=== PATIENT | female | born 1945 | race Caucasian/White ===

== ENCOUNTER 2017-05-09 11:06 | Day surgery (SDC) | payer MEDICARE, OTHER ==
[~2017-05-09 11:06] MED LIST: ACETAZOLAMIDE 250 MG TABLET PO ONE; Ak-Dilate OPHTHALMIC*** 0.71 ML, Cyclogyl 1% OPHTH SOL 5 ML 0.71 ML, GATIFLOXACIN 0.5% ... OP ONE; Lactated Ringers 1,000 ML IV ONE; Lactated Ringers 1,000 ML IV SCH; TETRACAINE 0.5% STERI-UNIT SOL OP ONE; Zofran 4 MG/2 ML VIAL IV PRN
[2017-05-09] MEDS ORDERED: DIPRIVAN 200 MG/20 ML IV ONE (11:07)
[2017-05-09] MEDS ORDERED: LIDOCAINE HCL 1% AMPUL 5 ML IJ ONE (12:30)
[2017-05-09] MEDS ORDERED: BETADINE 5% OPHTHALMIC 30 ML OP ONE (12:30)
[2017-05-09] MEDS ORDERED: Epinephrine Preservative Free 1 MG/ML INTRAOP ONE (12:30)
[2017-05-09 13:16] VITALS: BP 157/84; PULSE 65; O2SAT 95
--- NOTE | 2017-05-10 08:07 | OP ---
DATE/TIME OF OPERATION: 05/09/2017 1203 TIME DICTATED: 1522 PREOPERATIVE DIAGNOSIS: Senile cataract of left eye. POSTOPERATIVE DIAGNOSIS: Senile cataract of left eye. SURGEON: Ti Wood MD QUALITY ASSURANCE SUPERVISOR FINAL: None. OPERATION: Cataract extraction of left eye with an intraocular lens implant. STANDARD __X___ COMPLEX ANESTHESIA: MAC. ___X___ Monitored anesthesia care in combination with topical and intra-cameral anesthesia (because of the established specific risk of reflux, arrhythmias, or an anxiety attack associated with ocular manipulation as well as difficulty of the pressure supervisor to manage such potentially catastrophic events while simultaneously attempting to complete the surgical procedure, it was deemed necessary for the patient's safety to have an anesthesiologist or a nurse life skills worker present during the procedure whenever possible. The anesthesiologist or the nurse life skills worker was utilized to monitor and regulate the intravenous sedation of the patient, so the patient was cooperative, relaxed, and comfortable). Topical anesthesia using Tetracaine eye drops together with intra cameral anesthesia using Lidocaine 1% MPF. The nurse was utilized to monitor the patient. ANESTHESIA PROVIDER: Josh Loaiza CRNA. COMPLICATIONS: None. BLOOD LOSS: None. INDICATIONS: The patient is undergoing cataract surgery in the hopes of eliminating the visual complaints and difficulty. PROCEDURE: After arriving at the facility's outpatient surgery area, an IV was started; the patient was given 5 mg of p.o. Versed. (If an anesthesia provider was not monitoring the patient) The patient was then given topical anesthetic Tetracaine eye drops. A cotton pellet was soaked into a solution of a combination of Zymaxid 0.5%, Torey-Synephrine 2.5% and Ocufen (other drops might have been substituted referenced in the patient's record). The pellet was inserted by the RN into the lower conjunctival cul-de-sac with a sterile forceps and left for 20 minutes. The pellet was then removed by the RN with a sterile forceps before taking the patient to the operating room. The preoperative area nurse identified the patient and marked the correct eye to be operated on. I identified the correct eye to be operated on and marked it appropriately in the outpatient surgery area. The patient was then taken into the operating room. Tetracaine eye drops were installed again in the correct eye. The eyelids and the lashes and the lid margins were scrubbed with Betadine solution. One drop of the diluted Betadine solution was placed in the conjunctival cul-de-sac for 45 seconds and then was irrigated. A drop of Tetracaine Gel was placed in the conjunctival cul-de-sac. The patient's forehead was taped to secure it during the procedure. The patient was monitored. The patient was then draped in the usual way for this procedure. An eye speculum was used to separate the eyelids. The eye was then fixated and a temporal 2.5 mm incision was made in the clear cornea temporally at the limbus. Through the incision, 0.25 cc of 1% non-preserved lidocaine was injected into the anterior chamber for intracameral anesthesia. The anterior chamber was then filled with viscoelastic. The pupil was small. I felt that it would be safer to mechanically dilate the pupil. A Malyugin ring was used at this point which dilated the pupil. That was removed at the end of the procedure prior to aspiration of the viscoelastic from the anterior chamber and posterior to the intraocular lens implant. The cataract had a great amount of cortical changes. That rendered seeing the anterior capsule difficult for a safe performance of an anterior capsulotomy. I injected an air bubble into the anterior chamber. I then injected 1 ML of vision blue solution into the anterior chamber. The vision blue solution was irrigated from the anterior chamber after 30 seconds. The anterior capsule was stained which facilitated performing the anterior capsulotomy safely. After that was completed, a cystotome was introduced into the anterior chamber and a round anterior capsulotomy was performed. The capsule was removed by a forceps. Hydrodissection was next carried utilizing a 25-gauge cannula and balanced salt solution to delineate the cortical material from the capsule and the nucleus from the cortical material. The nucleus was rotated freely into the capsular bag with no difficulty. The phaco tip of the [employer] Phacoemulsifier was introduced into the anterior chamber and two grooves were made into the nucleus 90 degrees apart. Using two spatulas resulted into the nucleus being fractured into four quadrants. The phaco tip was then used to remove each quadrant of the nucleus. Viscoelastic was used during this process to protect the corneal endothelium. Once the entire nucleus was removed, the phaco tip then was removed and the irrigation tip was introduced into the eye and the cortex was removed. The posterior capsule was polished. It was noticed that there was a tear into the posterior capsule with few vitreous strands into the pupil plan. An anterior vitrectomy was performed. A 25.50 diopter, [id number], posterior chamber lens implant, was inspected and found to be grossly normal. The implant was inserted into the implant injector cartridge; Viscoelastic again was introduced into the anterior chamber, which filled the capsular bag. The implant injector's cartridge tip was placed at the limbal wound and the posterior chamber implant was released into the capsular bag and rotated appropriately. The implant was found to be into the capsular bag and it was centered. __X___ 0.2 ml of Tri-Moxi was introduced via 27 gauge cannula into the vitreous cavity through the ciliary processes. Viscoelastic was aspirated from the anterior chamber and posterior to the intraocular lens implant from the capsular bag using the irrigating tip. The anterior chamber was irrigated and filled with 5 cc antibiotic solution (500 cc of BSS plus 2 ml of Fortaz 100 mg/ml) ( if patient was not allergic to the medication). The lips of the corneal incision were hydrated using BSS solution. The anterior chamber was checked and found to be water tight. One drop each of antibiotic, steroid and NSAID drops (refer to chart for drops used) were placed in the conjunctival cul-de-sac of the operated eye. Patient tolerated the procedure quite well and left the operating room in satisfactory condition. DISCHARGE SUMMARY: The patient was released in stable condition. The patient and those with the patient were given an instruction sheet as of how to care for the eye after surgery as well as counseling on any abnormal laboratory studies by the postoperative RN. The patient was also given an appointment card for follow-up in the office and is to call immediately for any difficulties including but not limited to pain in the eye, decreased vision, discharge from the eye, headache and or fever. DISCHARGE DIAGNOSIS: Pseudophakia of left eye.
== END 2017-05-09 13:27 | disposition home or self-care (01) ==
LOC: SDC 11:06
PROVIDERS: ATTEND Ophthalmology
PROC: 08RK3JZ Replacement of Left Lens with Synthetic Substitute, Percutaneous Approach (ICD-10-PCS; principal; 2017-05-09)
DX: H25.9 Unspecified age-related cataract (principal)
CPT/HCPCS: 66984; C1780; 00142; 99100; J0171; J2704; A9270-GY

== ENCOUNTER 2017-06-06 08:51 | Day surgery (SDC) | payer MEDICARE, OTHER ==
[2017-06-06] MEDS ORDERED: DIPRIVAN 200 MG/20 ML IV ONE (08:52)
[2017-06-06] MEDS ORDERED: Versed 2 MG/2 ML Injection IV ONE (08:52)
[2017-06-06] MEDS ORDERED: Lactated Ringers 1,000 ML IV ONE (09:51)
[2017-06-06] MEDS ORDERED: Epinephrine Preservative Free 1 MG/ML INTRAOP ONE (10:00)
[2017-06-06] MEDS ORDERED: LIDOCAINE HCL 1% AMPUL 5 ML IJ ONE (10:00)
[2017-06-06] MEDS ORDERED: BETADINE 5% OPHTHALMIC 30 ML OP ONE (10:00)
[2017-06-06] MEDS ORDERED: Lactated Ringers 1,000 ML IV SCH (11:00)
[2017-06-06] MEDS ORDERED: Ak-Dilate OPHTHALMIC*** 0.71 ML, Cyclogyl 1% OPHTH SOL 5 ML 0.71 ML, GATIFLOXACIN 0.5% ... OP ONE ×4 (11:00)
[2017-06-06] MEDS ORDERED: TETRACAINE 0.5% STERI-UNIT SOL OP ONE ×2 (11:00)
[2017-06-06] MEDS ORDERED: ACETAZOLAMIDE 250 MG TABLET PO ONE (12:00)
[2017-06-06] MEDS ORDERED: Zofran 4 MG/2 ML VIAL IV PRN (12:00)
--- NOTE | 2017-06-06 12:01 | OP ---
DATE/TIME OF OPERATION: 06/06/2017 1111 TIME DICTATED: 1151 PREOPERATIVE DIAGNOSIS: Senile cataract of right eye. POSTOPERATIVE DIAGNOSIS: Senile cataract of right eye. SURGEON: Ti Wood MD TIME STUDY ENGINEER: None. OPERATION: Cataract extraction of right eye with an intraocular lens implant. STANDARD __X___ COMPLEX ANESTHESIA: MAC. ___X___ Monitored anesthesia care in combination with topical and intra-cameral anesthesia (because of the established specific risk of reflux, arrhythmias, or an anxiety attack associated with ocular manipulation as well as difficulty of the planer setup operator to manage such potentially catastrophic events while simultaneously attempting to complete the surgical procedure, it was deemed necessary for the patient's safety to have an anesthesiologist or a nurse utility supervisor boat and plant present during the procedure whenever possible. The anesthesiologist or the nurse utility supervisor boat and plant was utilized to monitor and regulate the intravenous sedation of the patient, so the patient was cooperative, relaxed, and comfortable). Topical anesthesia using Tetracaine eye drops together with intra cameral anesthesia using Lidocaine 1% MPF. The nurse was utilized to monitor the patient. ANESTHESIA PROVIDER: Josh Loaiza CRNA. COMPLICATIONS: None. BLOOD LOSS: None. INDICATIONS: The patient is undergoing cataract surgery in the hopes of eliminating the visual complaints and difficulty. PROCEDURE: After arriving at the facility's outpatient surgery area, an IV was started; the patient was given 5 mg of p.o. Versed. (If an anesthesia provider was not monitoring the patient) The patient was then given topical anesthetic Tetracaine eye drops. A cotton pellet was soaked into a solution of a combination of Zymaxid 0.5%, Torey-Synephrine 2.5% and Ocufen (other drops might have been substituted referenced in the patient's record). The pellet was inserted by the RN into the lower conjunctival cul-de-sac with a sterile forceps and left for 20 minutes. The pellet was then removed by the RN with a sterile forceps before taking the patient to the operating room. The preoperative area nurse identified the patient and marked the correct eye to be operated on. I identified the correct eye to be operated on and marked it appropriately in the outpatient surgery area. The patient was then taken into the operating room. Tetracaine eye drops were installed again in the correct eye. The eyelids and the lashes and the lid margins were scrubbed with Betadine solution. One drop of the diluted Betadine solution was placed in the conjunctival cul-de-sac for 45 seconds and then was irrigated. A drop of Tetracaine Gel was placed in the conjunctival cul-de-sac. The patient's forehead was taped to secure it during the procedure. The patient was monitored. The patient was then draped in the usual way for this procedure. An eye speculum was used to separate the eyelids. The eye was then fixated and a temporal 2.5 mm incision was made in the clear cornea temporally at the limbus. Through the incision, 0.25 cc of 1% non-preserved lidocaine was injected into the anterior chamber for intracameral anesthesia. The anterior chamber was then filled with viscoelastic. The pupil was small. I felt that it would be safer to mechanically dilate the pupil. A Malyugin ring was used at this point which dilated the pupil. That was removed at the end of the procedure prior to aspiration of the viscoelastic from the anterior chamber and posterior to the intraocular lens implant. The cataract had a great amount of cortical changes. That rendered seeing the anterior capsule difficult for a safe performance of an anterior capsulotomy. I injected an air bubble into the anterior chamber. I then injected 1 ML of vision blue solution into the anterior chamber. The vision blue solution was irrigated from the anterior chamber after 30 seconds. The anterior capsule was stained which facilitated performing the anterior capsulotomy safely. After that was completed, a cystotome was introduced into the anterior chamber and a round anterior capsulotomy was performed. The capsule was removed by a forceps. Hydrodissection was next carried utilizing a 25-gauge cannula and balanced salt solution to delineate the cortical material from the capsule and the nucleus from the cortical material. The nucleus was rotated freely into the capsular bag with no difficulty. The phaco tip of the [employer] Phacoemulsifier was introduced into the anterior chamber and two grooves were made into the nucleus 90 degrees apart. Using two spatulas resulted into the nucleus being fractured into four quadrants. The phaco tip was then used to remove each quadrant of the nucleus. Viscoelastic was used during this process to protect the corneal endothelium. Once the entire nucleus was removed, the phaco tip then was removed and the irrigation tip was introduced into the eye and the cortex was removed. The posterior capsule was polished. It was noticed that there was a tear into the posterior capsule with few vitreous strands into the pupil plan. An anterior vitrectomy was performed. A 25.50 diopter, [id number], posterior chamber lens implant, was inspected and found to be grossly normal. The implant was inserted into the implant injector cartridge; Viscoelastic again was introduced into the anterior chamber, which filled the capsular bag. The implant injector's cartridge tip was placed at the limbal wound and the posterior chamber implant was released into the capsular bag and rotated appropriately. The implant was found to be into the capsular bag and it was centered. __X___ 0.2 ml of Tri-Moxi was introduced via 27 gauge cannula into the vitreous cavity through the ciliary processes. Viscoelastic was aspirated from the anterior chamber and posterior to the intraocular lens implant from the capsular bag using the irrigating tip. The anterior chamber was irrigated and filled with 5 cc antibiotic solution (500 cc of BSS plus 2 ml of Fortaz 100 mg/ml) ( if patient was not allergic to the medication). The lips of the corneal incision were hydrated using BSS solution. The anterior chamber was checked and found to be water tight. One drop each of antibiotic, steroid and NSAID drops (refer to chart for drops used) were placed in the conjunctival cul-de-sac of the operated eye. Patient tolerated the procedure quite well and left the operating room in satisfactory condition. DISCHARGE SUMMARY: The patient was released in stable condition. The patient and those with the patient were given an instruction sheet as of how to care for the eye after surgery as well as counseling on any abnormal laboratory studies by the postoperative RN. The patient was also given an appointment card for follow-up in the office and is to call immediately for any difficulties including but not limited to pain in the eye, decreased vision, discharge from the eye, headache and or fever. DISCHARGE DIAGNOSIS: Pseudophakia of right eye.
[2017-06-06 12:54] VITALS: BP 142/69; PULSE 77; O2SAT 98
== END 2017-06-06 12:40 | disposition home or self-care (01) ==
LOC: SDC 08:51
PROVIDERS: ATTEND Ophthalmology
PROC: 08RJ3JZ Replacement of Right Lens with Synthetic Substitute, Percutaneous Approach (ICD-10-PCS; principal; 2017-06-06)
PROC: 08B43ZZ Excision of Right Vitreous, Percutaneous Approach (ICD-10-PCS; 2017-06-06)
DX: H25.9 Unspecified age-related cataract (principal)
CPT/HCPCS: 66984; 67005; C1780; 00142; 99100; J0171; J2250; J2704; A9270-GY

== ENCOUNTER 2020-06-20 18:43 | Emergency (ER) | payer MEDICARE, OTHER ==
--- NOTE | 2020-06-20 19:25 | ERPHSYRPT ---
- History of Present Illness Time Seen by Provider: 06/20/20 19:21 Historian: patient Exam Limitations: no limitations Patient Subjective Stated Complaint: chest pain Triage Nursing Assessment: pt to ED c/o CP and SOB onset this am and progressivly getting worse all day. rates 4/10 currently. pain does not radiates from L chest. hx CHF and states she has been swelling more lately so has been taking old furosemide at home with some relief. heart and lungs clear. Timing/Duration: today Activities at Onset: none Quality: dullness Location: substernal Chest Pain Radiation: no radiation Severity of Pain-Max: mild Severity of Pain-Current: mild Modifying Factors: Improves With: nothing Associated Symptoms: shortness of breath Prior Chest Pain/Cardiac Workup: cardiac cath, heart attack ("several years ago") Nitro Today/Relief: no nitro taken today Aspirin Treatment Today: no aspirin today Allergies/Adverse Reactions: penicillin G Allergy (Verified 06/20/20 19:01) Home Medications: Vits W-Ca,Fe,FA(<1Mg) [] 1 each PO DAILY 05/09/17 [History] Hx Tetanus, Diphtheria Vaccination/Date Given: Yes (2013) Hx Influenza Vaccination/Date Given: No Hx Pneumococcal Vaccination/Date Given: No Travel Risk - International Travel Have you traveled outside of the country in past 3 weeks: No - Coronavirus Screening Symptoms: Shortness of Breath Close contact with a COVID-19 positive Pt in past 14-21 Days: No - Review of Systems Constitutional: No Symptoms Eyes: No Symptoms Ears, Nose, & Throat: No Symptoms Respiratory: Dyspnea on Exertion ([place]) Cardiac: Chest Pain, Edema (mild pedal edema) Abdominal/Gastrointestinal: No Symptoms Genitourinary Symptoms: No Symptoms Musculoskeletal: No Symptoms Skin: No Symptoms Neurological: No Symptoms Psychological: No Symptoms Endocrine: No Symptoms Hematologic/Lymphatic: No Symptoms Immunological/Allergic: No Symptoms All Other Systems: Reviewed and Negative - Past Medical History Pertinent Past Medical History: Yes Neurological History: Stroke, Other ENT History: Cataracts Cardiac History: Myocardial Infarction ([place]) Respiratory History: No Pertinent History, COPD Endocrine Medical History: No Pertinent History Musculoskeletal History: Arthritis, Degenerative Disk Disease, Osteoarthritis GI Medical History: No Pertinent History History: No Pertinent History Psycho-Social History: No Pertinent History Female Reproductive Disorders: Breast Cancer - Past Surgical History Past Surgical History: Yes Neuro Surgical History: No Pertinent History Cardiac: No Pertinent History, Cardiac Catheterization Respiratory: No Pertinent History Gastrointestinal: No Pertinent History Genitourinary: No Pertinent History Musculoskeletal: No Pertinent History Female Surgical History: Hysterectomy, Mastectomy Other Surgical History: mastectomy left breast with lymphectomy 2004 - Social History Smoking Status: Never smoker How long have you smoked: 40 yr Exposure to second hand smoke: No Drug Use: none Patient Lives Alone: Yes Significant Family History: heart disease - Female History Hx Now: No - Nursing Vital Signs Nursing Vital Signs: Initial Vital Signs Temperature 97.5 F 06/20/20 18:44 Pulse Rate 85 06/20/20 18:44 Respiratory Rate 19 06/20/20 18:44 O2 Sat by Pulse Oximetry 98 06/20/20 18:44 Pain Scale Pain Intensity 0 - Physical Exam General Appearance: no apparent distress Eye Exam: PERRL/EOMI Ears, Nose, Throat Exam: normal ENT inspection Neck Exam: normal inspection Respiratory Exam: normal breath sounds Cardiovascular Exam: regular rate/rhythm Gastrointestinal/Abdomen Exam: soft Pelvic Exam: not done Rectal Exam: deferred Back Exam: other (N/E) Extremity Exam: normal inspection Neurologic Exam: alert, oriented x 3, cooperative Skin Exam: normal color SpO2 Interpretation: normal SpO2: 98 O2 Delivery: Room Air - Course Nursing assessment & vital signs reviewed: Yes EKG Interpreted by Me: RATE (81), Sinus Rhythm, NORMAL AXIS, NORMAL INTERVALS, NORMAL QRS, NORMAL ST-T Rhythm Strip: Rate (80) - Radiology Exams Chest X-ray Interpretation: Interpreted by me, Negative Ordered Tests: Active Orders 24 hr Category Date Time Status Crown Presser STAT Care 06/20/20 19:50 Completed EKG-ER Only STAT Care 06/20/20 19:49 Completed IV Insertion STAT Care 06/20/20 19:49 Completed CHEST 1 VIEW (PORTABLE) Stat Exams 06/20/20 19:50 Taken CBC W DIFF Stat Lab 06/20/20 20:03 Completed CMP Stat Lab 06/20/20 19:49 Completed D-DIMER QUANTITATIVE Stat Lab 06/20/20 20:03 Completed NT PRO BNP Stat Lab 06/20/20 19:49 Completed TROPONIN Q3H Lab 06/20/20 20:03 Completed Medication Summary Discontinued Medications Generic Name Dose Route Start Last Admin Trade Name Freq PRN Reason Stop Dose Admin Nitroglycerin 0.4 mg 06/20/20 20:17 Nitrostat 0.4 Mg Tablet SL 07/20/20 20:16 Q5MIN PRN MR X 3 PRN CHEST PAIN Nitroglycerin 0.4 mg 06/20/20 21:00 06/20/20 21:35 Nitrostat 0.4 Mg Tablet SL 07/20/20 20:59 0.4 mg Q5MIN PRN MR X 3 PRN Administration CHEST PAIN Nitroglycerin 0.4 mg 06/20/20 21:00 06/20/20 21:03 Nitrostat 0.4 Mg Tablet SL 06/20/20 21:01 0.4 mg Q5MIN PRN MR X 3 STA Administration Lab/Rad Data: Laboratory Result Diagrams 06/20/20 20:03 06/20/20 19:49 Laboratory Results 06/20/20 06/20/20 06/20/20 Range/Units 20:03 20:03 20:03 WBC 5.2 (4.0-10.5) K/mm3 RBC 4.53 (4.1-5.4) M/mm3 Hgb 13.5 (12.0-16.0) gm/dl Hct 42.6 (35-47) % MCV 94.0 (78-100) fl MCH 29.8 (26-32) pg MCHC 31.7 L (32-36) g/dl RDW 14.9 H (11.5-14.0) % Plt Count 215 (150-450) K/mm3 MPV 11.4 H (7.5-11.0) fl Gran % 46.6 (36.0-66.0) % Eos # (Auto) 0.13 (0-0.5) Absolute Lymphs (auto) 1.88 (1.0-4.6) Absolute Monos (auto) 0.75 (0.0-1.3) Lymphocytes % 36.1 (24.0-44.0) % Monocytes % 14.4 H (0.0-12.0) % Eosinophils % 2.5 (0.00-5.0) % Basophils % 0.4 (0.0-0.4) % Absolute Granulocytes 2.43 (1.4-6.9) Basophils # 0.02 (0-0.4) D-Dimer 486 (215-500) ng/mL Sodium (137-145) mmol/L Potassium (3.5-5.1) mmol/L Chloride (98-107) mmol/L Carbon Dioxide (22-30) mmol/L Anion Gap (5-15) MEQ/L BUN (7-17) mg/dL Creatinine (0.52-1.04) mg/dL Estimated GFR ML/MIN Glucose (74-106) mg/dL Calcium (8.4-10.2) mg/dL Total Bilirubin (0.2-1.3) mg/dL AST (14-36) U/L ALT (0-35) U/L Alkaline Phosphatase (38-126) U/L Troponin I < 0.012 (0.000-0.034) ng/mL NT-Pro-B Natriuret Pep (0-1800) pg/mL Serum Total Protein (6.3-8.2) g/dL Albumin (3.5-5.0) g/dL 06/20/20 Range/Units 19:49 WBC (4.0-10.5) K/mm3 RBC (4.1-5.4) M/mm3 Hgb (12.0-16.0) gm/dl Hct (35-47) % MCV (78-100) fl MCH (26-32) pg MCHC (32-36) g/dl RDW (11.5-14.0) % Plt Count (150-450) K/mm3 MPV (7.5-11.0) fl Gran % (36.0-66.0) % Eos # (Auto) (0-0.5) Absolute Lymphs (auto) (1.0-4.6) Absolute Monos (auto) (0.0-1.3) Lymphocytes % (24.0-44.0) % Monocytes % (0.0-12.0) % Eosinophils % (0.00-5.0) % Basophils % (0.0-0.4) % Absolute Granulocytes (1.4-6.9) Basophils # (0-0.4) D-Dimer (215-500) ng/mL Sodium 140 (137-145) mmol/L Potassium 4.0 (3.5-5.1) mmol/L Chloride 103 (98-107) mmol/L Carbon Dioxide 29 (22-30) mmol/L Anion Gap 11.7 (5-15) MEQ/L BUN 18 H (7-17) mg/dL Creatinine 0.68 (0.52-1.04) mg/dL Estimated GFR > 60.0 ML/MIN Glucose 97 (74-106) mg/dL Calcium 9.5 (8.4-10.2) mg/dL Total Bilirubin 0.40 (0.2-1.3) mg/dL AST 37 H (14-36) U/L ALT 36 H (0-35) U/L Alkaline Phosphatase 115 (38-126) U/L Troponin I (0.000-0.034) ng/mL NT-Pro-B Natriuret Pep 53.2 (0-1800) pg/mL Serum Total Protein 7.8 (6.3-8.2) g/dL Albumin 4.4 (3.5-5.0) g/dL - Progress Progress: improved, re-examined Air Movement: good Progress Note: 06/21/20 01:46 EDT Her pain resolved with 2 NTG. Work-up is normal. The chest pain had been present all day (about 12 hours) and the troponin is neg, no need to repeat. She cannot take ASA because she is a "free bleeder". I offered admission to the hospital, she does not want to stay, will go home and call PCP Monday. Rx NTG for use prn. Blood Culture(s) Obtained: No Antibiotics given: No Counseled pt/family regarding: lab results, diagnosis, need for follow-up, rad results - Departure Departure Disposition: Home Clinical Impression: Chest pain Condition: Stable Critical Care Time: No Referrals: AUSTIN RITTER MD [Primary Care Provider] - Follow Up with PCP/3 days (Chest pain, normal work-up, but pain resolved with 2 NTG. She did not want admitted. She will contact the office to discuss further evaluation of this.) Instructions: Angina (DC), Chest Pain (DC) Additional Instructions: Home for rest. Contact your Dr. to discuss further heart testing. Return to ER if any further chest pains. Nitroglycerin can be used if needed, seek medical evaluation if 3 in a row are needed. Prescriptions: Nitroglycerin 0.4 mg Tablet [Nitrostat 0.4 MG Tablet] 0.4 mg SL Q5MIN PRN MR X 3 PRN #1 bottle PRN Reason: Chest Pain
[2020-06-20 20:07] LABS: Absolute Neutrophil Ct (ANC) 2.43 (1.4-6.9); BASOPHIL % 0.4 % (0.0-0.4); Basophil (Absolute #) 0.02 (0-0.4); Eosinophil % 2.5 % (0.00-5.0); Eosinophil (Absolute #) 0.13 (0-0.5); Hematocrit 42.6 % (35-47); Hemoglobin 13.5 gm/dl (12.0-16.0); Lymphocyte (Absolute #) 1.88 (1.0-4.6); Lymphocytes % 36.1 % (24.0-44.0); Mean Corpuscular Hemoglobin 29.8 pg (26-32); Mean Corpuscular Hgb Concent. 31.7 g/dl (32-36); Mean Platelet Volume 11.4 fl (7.5-11.0); Monocyte (Absolute #) 0.75 (0.0-1.3); Monocytes % 14.4 % (0.0-12.0); Neutrophil % 46.6 % (36.0-66.0); Platelet Count 215 K/mm3 (150-450); Red Blood Count 4.53 M/mm3 (4.1-5.4); Red Cell Distribution Width 14.9 % (11.5-14.0); White Blood Count 5.2 K/mm3 (4.0-10.5)
[2020-06-20] MEDS ORDERED: Nitrostat 0.4 MG Tablet SL PRN ×2 (20:17→21:00)
[2020-06-20 20:28] LABS: ALBUMIN 4.4 g/dL (3.5-5.0); ALKALINE PHOSPHATASE 115 U/L (38-126); ANION GAP 11.7 MEQ/L (5-15); BLOOD UREA NITROGEN 18 mg/dL (7-17); CHLORIDE 103 mmol/L (98-107); Calcium 9.5 mg/dL (8.4-10.2); Carbon Dioxide 29 mmol/L (22-30); Creatinine 1 0.68 mg/dL (0.52-1.04); EST GLOMERULAR FILTRATION RATE > 60.0 ML/MIN; Glucose 97 mg/dL (74-106); NT PRO BNP 53.2 pg/mL (0-1800); SGOT/AST 37 U/L (14-36); SGPT/ALT 36 U/L (0-35); SODIUM 140 mmol/L (137-145); Total Protein 7.8 g/dL (6.3-8.2)
[2020-06-20] MEDS ORDERED: Nitrostat 0.4 MG Tablet SL STA (21:00)
[2020-06-20 22:43] VITALS: BP 138/63; PULSE 72
[2020-06-21 01:37] VITALS: O2SAT 98
--- NOTE | 2020-06-21 01:38 | ERPHSYRPT ---
- History of Present Illness Time Seen by Provider: 06/20/20 19:21 Patient Subjective Stated Complaint: chest pain Triage Nursing Assessment: pt to ED c/o CP and SOB onset this am and progressivly getting worse all day. rates 4/10 currently. pain does not radiates from L chest. hx CHF and states she has been swelling more lately so has been taking old furosemide at home with some relief. heart and lungs clear. Allergies/Adverse Reactions: penicillin G Allergy (Verified 06/20/20 19:01) Home Medications: Vits W-Ca,Fe,FA(<1Mg) [] 1 each PO DAILY 05/09/17 [History] Hx Tetanus, Diphtheria Vaccination/Date Given: Yes (2013) Hx Influenza Vaccination/Date Given: No Hx Pneumococcal Vaccination/Date Given: No Travel Risk - International Travel Have you traveled outside of the country in past 3 weeks: No - Coronavirus Screening Symptoms: Shortness of Breath Close contact with a COVID-19 positive Pt in past 14-21 Days: No - Past Medical History Pertinent Past Medical History: Yes Neurological History: Stroke, Other ENT History: Cataracts Cardiac History: Myocardial Infarction ([place]) Respiratory History: No Pertinent History, COPD Endocrine Medical History: No Pertinent History Musculoskeletal History: Arthritis, Degenerative Disk Disease, Osteoarthritis GI Medical History: No Pertinent History History: No Pertinent History Psycho-Social History: No Pertinent History Female Reproductive Disorders: Breast Cancer - Past Surgical History Past Surgical History: Yes Neuro Surgical History: No Pertinent History Cardiac: No Pertinent History, Cardiac Catheterization Respiratory: No Pertinent History Gastrointestinal: No Pertinent History Genitourinary: No Pertinent History Musculoskeletal: No Pertinent History Female Surgical History: Hysterectomy, Mastectomy Other Surgical History: mastectomy left breast with lymphectomy 2004 - Social History Smoking Status: Never smoker How long have you smoked: 40 yr Exposure to second hand smoke: No Drug Use: none Patient Lives Alone: Yes Significant Family History: heart disease - Female History Hx Now: No - Nursing Vital Signs Nursing Vital Signs: Initial Vital Signs Temperature 97.5 F 06/20/20 18:44 Pulse Rate 85 06/20/20 18:44 Respiratory Rate 19 06/20/20 18:44 O2 Sat by Pulse Oximetry 98 06/20/20 18:44 Pain Scale Pain Intensity 0 - Physical Exam SpO2: 98 Ordered Tests: Active Orders 24 hr Category Date Time Status Yield Analyst STAT Care 06/20/20 19:50 Completed EKG-ER Only STAT Care 06/20/20 19:49 Completed IV Insertion STAT Care 06/20/20 19:49 Completed CHEST 1 VIEW (PORTABLE) Stat Exams 06/20/20 19:50 Taken CBC W DIFF Stat Lab 06/20/20 20:03 Completed CMP Stat Lab 06/20/20 19:49 Completed D-DIMER QUANTITATIVE Stat Lab 06/20/20 20:03 Completed NT PRO BNP Stat Lab 06/20/20 19:49 Completed TROPONIN Q3H Lab 06/20/20 20:03 Completed Medication Summary Discontinued Medications Generic Name Dose Route Start Last Admin Trade Name Freq PRN Reason Stop Dose Admin Nitroglycerin 0.4 mg 06/20/20 20:17 Nitrostat 0.4 Mg Tablet SL 07/20/20 20:16 Q5MIN PRN MR X 3 PRN CHEST PAIN Nitroglycerin 0.4 mg 06/20/20 21:00 06/20/20 21:35 Nitrostat 0.4 Mg Tablet 07/20/20 20:59 0.4 mg Q5MIN PRN MR X 3 PRN Administration CHEST PAIN Nitroglycerin 0.4 mg 06/20/20 21:00 06/20/20 21:03 Nitrostat 0.4 Mg Tablet SL 06/20/20 21:01 0.4 mg Q5MIN PRN MR X 3 STA Administration Lab/Rad Data: Laboratory Result Diagrams 06/20/20 20:03 06/20/20 19:49 Laboratory Results 06/20/20 06/20/20 06/20/20 Range/Units 20:03 20:03 20:03 WBC 5.2 (4.0-10.5) K/mm3 RBC 4.53 (4.1-5.4) M/mm3 Hgb 13.5 (12.0-16.0) gm/dl Hct 42.6 (35-47) % MCV 94.0 (78-100) fl MCH 29.8 (26-32) pg MCHC 31.7 L (32-36) g/dl RDW 14.9 H (11.5-14.0) % Plt Count 215 (150-450) K/mm3 MPV 11.4 H (7.5-11.0) fl Gran % 46.6 (36.0-66.0) % Eos # (Auto) 0.13 (0-0.5) Absolute Lymphs (auto) 1.88 (1.0-4.6) Absolute Monos (auto) 0.75 (0.0-1.3) Lymphocytes % 36.1 (24.0-44.0) % Monocytes % 14.4 H (0.0-12.0) % Eosinophils % 2.5 (0.00-5.0) % Basophils % 0.4 (0.0-0.4) % Absolute Granulocytes 2.43 (1.4-6.9) Basophils # 0.02 (0-0.4) D-Dimer 486 (215-500) ng/mL Sodium (137-145) mmol/L Potassium (3.5-5.1) mmol/L Chloride (98-107) mmol/L Carbon Dioxide (22-30) mmol/L Anion Gap (5-15) MEQ/L BUN (7-17) mg/dL Creatinine (0.52-1.04) mg/dL Estimated GFR ML/MIN Glucose (74-106) mg/dL Calcium (8.4-10.2) mg/dL Total Bilirubin (0.2-1.3) mg/dL AST (14-36) U/L ALT (0-35) U/L Alkaline Phosphatase (38-126) U/L Troponin I < 0.012 (0.000-0.034) ng/mL NT-Pro-B Natriuret Pep (0-1800) pg/mL Serum Total Protein (6.3-8.2) g/dL Albumin (3.5-5.0) g/dL 06/20/20 Range/Units 19:49 WBC (4.0-10.5) K/mm3 RBC (4.1-5.4) M/mm3 Hgb (12.0-16.0) gm/dl Hct (35-47) % MCV (78-100) fl MCH (26-32) pg MCHC (32-36) g/dl RDW (11.5-14.0) % Plt Count (150-450) K/mm3 MPV (7.5-11.0) fl Gran % (36.0-66.0) % Eos # (Auto) (0-0.5) Absolute Lymphs (auto) (1.0-4.6) Absolute Monos (auto) (0.0-1.3) Lymphocytes % (24.0-44.0) % Monocytes % (0.0-12.0) % Eosinophils % (0.00-5.0) % Basophils % (0.0-0.4) % Absolute Granulocytes (1.4-6.9) Basophils # (0-0.4) D-Dimer (215-500) ng/mL Sodium 140 (137-145) mmol/L Potassium 4.0 (3.5-5.1) mmol/L Chloride 103 (98-107) mmol/L Carbon Dioxide 29 (22-30) mmol/L Anion Gap 11.7 (5-15) MEQ/L BUN 18 H (7-17) mg/dL Creatinine 0.68 (0.52-1.04) mg/dL Estimated GFR > 60.0 ML/MIN Glucose 97 (74-106) mg/dL Calcium 9.5 (8.4-10.2) mg/dL Total Bilirubin 0.40 (0.2-1.3) mg/dL AST 37 H (14-36) U/L ALT 36 H (0-35) U/L Alkaline Phosphatase 115 (38-126) U/L Troponin I (0.000-0.034) ng/mL NT-Pro-B Natriuret Pep 53.2 (0-1800) pg/mL Serum Total Protein 7.8 (6.3-8.2) g/dL Albumin 4.4 (3.5-5.0) g/dL - Departure Clinical Impression: Chest pain Condition: Stable Referrals: AUSTIN RITTER MD [Primary Care Provider] - Follow Up with PCP/3 days (Chest pain, normal work-up, but pain resolved with 2 NTG. She did not want admitted. She will contact the office to discuss further evaluation of this.) Instructions: Angina (DC), Chest Pain (DC) Additional Instructions: Home for rest. Contact your Dr. to discuss further heart testing. Return to ER if any further chest pains. Nitroglycerin can be used if needed, seek medical evaluation if 3 in a row are needed. Prescriptions: Nitroglycerin 0.4 mg Tablet [Nitrostat 0.4 MG Tablet] 0.4 mg SL Q5MIN PRN MR X 3 PRN #1 bottle PRN Reason: Chest Pain
--- NOTE | 2020-06-21 08:33 | XRAY ---
Indication: Chest pain. Comparison: January 02, 2015. Portable apical lordotic chest again demonstrates normal heart and lungs. Bony thorax intact with incidental mild osteopenia, degenerative changes, and bilateral carotid calcifications.
== END 2020-06-20 23:00 | disposition home or self-care (01) ==
LOC: ED 18:43
DX: R07.9 Chest pain, unspecified (principal); I50.9 Heart failure, unspecified
CPT/HCPCS: 36000; 36415; 71045; 80053; 83880; 84484; 85025; 85379; 93005; 93041; 99284; A9270-GY

== ENCOUNTER 2021-11-09 10:10 | Emergency (ER) | payer MEDICARE, OTHER ==
--- NOTE | 2021-11-09 10:14 | ERPHSYRPT ---
- History of Present Illness Time Seen by Provider: 11/09/21 10:14 Source: patient Exam Limitations: no limitations Physician History: This is a 76-year-old white female patient of Dr. Ritter who presents with a history of intermittent dizziness over the last 2 months. This morning she had a near syncopal episode. Patient states that she just feels off balance. Haley mock has a history of CVA in the past. She also has a history of myocardial infarction in the past. She has a history of breast cancer status post lumpectomy in the past. Patient denies chest pain. She denies shortness of breath. She denies headache. She denies abdominal pain. Patient has a history of degenerative disc disease. Timing/Duration: intermittent (2 months), worse, other Severity: mild Character of Deficits: other (Off balance) Deficits: off balance Baseline/Normal Cognition: alert oriented x 3 Current Cognition: alert oriented x 3 Baseline Gait: walks w/o assistance Associated Symptoms: other (Off balance and dizziness), No confusion, No nausea, No vomiting, No weakness Allergies/Adverse Reactions: penicillin G Allergy (Verified 11/09/21 10:37) Hx Tetanus, Diphtheria Vaccination/Date Given: Yes (2013) Hx Influenza Vaccination/Date Given: No Hx Pneumococcal Vaccination/Date Given: No Travel Risk - International Travel Have you traveled outside of the country in past 3 weeks: No - Coronavirus Screening Are you exhibiting any of the following symptoms?: No Close contact with a COVID-19 positive Pt in past 14-21 Days: No - Review of Systems Constitutional: No Symptoms Eyes: No Symptoms Ears, Nose, & Throat: No Symptoms Respiratory: No Symptoms Cardiac: No Symptoms Abdominal/Gastrointestinal: No Symptoms Genitourinary Symptoms: No Symptoms Musculoskeletal: No Symptoms Skin: No Symptoms Neurological: Dizziness, Other (Off balance), No Headache, No Vertigo Psychological: No Symptoms Endocrine: No Symptoms Hematologic/Lymphatic: No Symptoms Immunological/Allergic: No Symptoms All Other Systems: Reviewed and Negative - Past Medical History Pertinent Past Medical History: Yes Neurological History: Stroke, Other ENT History: Cataracts Cardiac History: Myocardial Infarction ([place]) Respiratory History: No Pertinent History, COPD Endocrine Medical History: No Pertinent History Musculoskeletal History: Arthritis, Degenerative Disk Disease, Osteoarthritis GI Medical History: No Pertinent History History: No Pertinent History Psycho-Social History: No Pertinent History Female Reproductive Disorders: Breast Cancer - Past Surgical History Past Surgical History: Yes Neuro Surgical History: No Pertinent History Cardiac: No Pertinent History, Cardiac Catheterization Respiratory: No Pertinent History Gastrointestinal: No Pertinent History Genitourinary: No Pertinent History Musculoskeletal: No Pertinent History Female Surgical History: Hysterectomy, Mastectomy Other Surgical History: mastectomy left breast with lymphectomy 2004 - Social History Smoking Status: Never smoker How long have you smoked: 40 yr Exposure to second hand smoke: No Drug Use: none Patient Lives Alone: Yes Significant Family History: heart disease - Nursing Vital Signs Nursing Vital Signs: Initial Vital Signs Temperature 97.1 F 11/09/21 10:25 Pulse Rate 100 H 11/09/21 10:25 Respiratory Rate 9 L 11/09/21 10:25 Blood Pressure 120/73 11/09/21 10:25 O2 Sat by Pulse Oximetry 98 11/09/21 10:25 Pain Scale Pain Intensity 0 - Kedar Coma Scale Best Eye Response (Adams): (4) open spontaneously Best Verbal Response (Kedar): (5) oriented Best Motor Response (Kedar): (6) obeys commands Adams Total: 15 - Physical Exam General Appearance: no apparent distress, alert, anxiety, other (Hard of hearing (chronic)) Eye Exam: bilateral eye: normal inspection, PERRL, EOMI Ears, Nose, Throat Exam: other (Bilateral cerumen in canals. I was able to visualize the tympanic membranes) Neck Exam: normal inspection, non-tender, supple, full range of motion Respiratory: normal breath sounds, lungs clear, airway intact, No chest tenderness, No respiratory distress Cardiovascular: regular rate/rhythm, normal heart sounds, normal peripheral pulses Gastrointestinal: soft, normal bowel sounds, No tenderness Pelvic Exam: not done Rectal Exam: not done Back Exam: normal inspection, normal range of motion, No CVA tenderness, No vertebral tenderness Extremity Exam: normal inspection, normal range of motion, pelvis stable Mental Status: alert, oriented x 3, cooperative machine shop specialist Exam: normal speech, PERRL, hearing deficit (R) (Chronic), hearing deficit (L) (Chronic), tongue midline, No abnormal speech, No facial droop Coordination/Gait: normal finger to nose Motor/Sensory: no motor deficit, no sensory deficit, no pronator drift Skin Exam: normal color, warm, dry SpO2 Interpretation: normal O2 Delivery: Room Air Ordered Tests: Active Orders 24 hr Category Date Time Status EKG-ER Only STAT Care 11/09/21 10:45 Active IV Insertion STAT Care 11/09/21 10:45 Active HEAD WITHOUT CONTRAST [CT] Stat Exams 11/09/21 10:45 Completed CBC W DIFF Stat Lab 11/09/21 10:48 Completed CMP Stat Lab 11/09/21 10:48 Completed MAGNESIUM Stat Lab 11/09/21 10:48 Completed TROPONIN Q3H Lab 11/09/21 10:48 Completed TROPONIN Q3H Lab 11/09/21 13:45 Ordered TROPONIN Q3H Lab 11/09/21 16:45 Ordered TROPONIN Q3H Lab 11/09/21 19:45 Ordered TROPONIN Q3H Lab 11/09/21 22:45 Ordered Medication Summary Discontinued Medications Generic Name Dose Route Start Last Admin Trade Name Freq PRN Reason Stop Dose Admin Sodium Chloride 500 mls @ 500 mls/hr 11/09/21 10:46 11/09/21 11:31 Sodium Chloride 0.9% 500 Ml IV 11/09/21 11:45 500 mls/hr .Q1H ONE Administration Sodium Chloride Confirm 11/09/21 11:30 Sodium Chloride 0.9% 500 Ml Administered 11/09/21 11:31 Dose 500 mls @ ud IV .STK-MED ONE Lab/Rad Data: Laboratory Result Diagrams 11/09/21 10:48 11/09/21 10:48 Laboratory Results 11/09/21 11/09/21 11/09/21 Range/Units 10:48 10:48 10:48 WBC 7.2 (4.0-10.5) K/mm3 RBC 4.40 (4.1-5.4) M/mm3 Hgb 12.7 (12.0-16.0) gm/dl Hct 40.4 (35-47) % MCV 91.8 (78-100) fl MCH 28.9 (26-32) pg MCHC 31.4 L (32-36) g/dl RDW 15.6 H (11.5-14.0) % Plt Count 306 (150-450) K/mm3 MPV 10.6 (7.5-11.0) fl Gran % 71.6 H (36.0-66.0) % Eos # (Auto) 0.07 (0-0.5) Absolute Lymphs (auto) 1.19 (1.0-4.6) Absolute Monos (auto) 0.76 (0.0-1.3) Lymphocytes % 16.5 L (24.0-44.0) % Monocytes % 10.5 (0.0-12.0) % Eosinophils % 1.0 (0.00-5.0) % Basophils % 0.4 (0.0-0.4) % Absolute Granulocytes 5.18 (1.4-6.9) Basophils # 0.03 (0-0.4) Sodium 138 (137-145) mmol/L Potassium 4.4 (3.5-5.1) mmol/L Chloride 103 (98-107) mmol/L Carbon Dioxide 21 L (22-30) mmol/L Anion Gap 17.6 H (5-15) MEQ/L BUN 17 (7-17) mg/dL Creatinine 1.22 H (0.52-1.04) mg/dL Estimated GFR 45.3 ML/MIN Glucose 105 (74-106) mg/dL Calcium 9.5 (8.4-10.2) mg/dL Magnesium 1.7 (1.6-2.3) mg/dL Total Bilirubin 0.80 (0.2-1.3) mg/dL AST 63 H (14-36) U/L ALT 27 (0-35) U/L Alkaline Phosphatase 101 (38-126) U/L Troponin I < 0.012 (0.000-0.034) ng/mL Serum Total Protein 7.8 (6.3-8.2) g/dL Albumin 4.1 (3.5-5.0) g/dL Urinalys Dipstick Clnc Urine Color (YELLOW) Urine Appearance (CLEAR) Urine pH (5-6) Ur Specific Deaver (1.005-1.025) POC Urine Protein Conf (Negative) Urine Ketones (NEGATIVE) Urine Nitrite (NEGATIVE) Urine Bilirubin (NEGATIVE) Urine Urobilinogen (0-1) mg/dL Urine Leukocytes (NEGATIVE) Urine WBC (Auto) (0-5) /HPF Urine RBC (Auto) (0-2) /HPF U Epithel Cells (Auto) (FEW) /HPF Urine Bacteria (Auto) (NEGATIVE) /HPF Urine RBC (0-5) Elbert/ul Urine Mucus (Auto) (NEGATIVE) /HPF Ur Culture Indicated? Urine Glucose (NEGATIVE) mg/dL 11/09/21 Range/Units 10:45 WBC (4.0-10.5) K/mm3 RBC (4.1-5.4) M/mm3 Hgb (12.0-16.0) gm/dl Hct (35-47) % MCV (78-100) fl MCH (26-32) pg MCHC (32-36) g/dl RDW (11.5-14.0) % Plt Count (150-450) K/mm3 MPV (7.5-11.0) fl Gran % (36.0-66.0) % Eos # (Auto) (0-0.5) Absolute Lymphs (auto) (1.0-4.6) Absolute Monos (auto) (0.0-1.3) Lymphocytes % (24.0-44.0) % Monocytes % (0.0-12.0) % Eosinophils % (0.00-5.0) % Basophils % (0.0-0.4) % Absolute Granulocytes (1.4-6.9) Basophils # (0-0.4) Sodium (137-145) mmol/L Potassium (3.5-5.1) mmol/L Chloride (98-107) mmol/L Carbon Dioxide (22-30) mmol/L Anion Gap (5-15) MEQ/L BUN (7-17) mg/dL Creatinine (0.52-1.04) mg/dL Estimated GFR ML/MIN Glucose (74-106) mg/dL Calcium (8.4-10.2) mg/dL Magnesium (1.6-2.3) mg/dL Total Bilirubin (0.2-1.3) mg/dL AST (14-36) U/L ALT (0-35) U/L Alkaline Phosphatase (38-126) U/L Troponin I (0.000-0.034) ng/mL Serum Total Protein (6.3-8.2) g/dL Albumin (3.5-5.0) g/dL Urinalys Dipstick Clnc MAIN LAB Urine Color YELLOW (YELLOW) Urine Appearance CLEAR (CLEAR) Urine pH 6.0 (5-6) Ur Specific Deaver 1.015 (1.005-1.025) POC Urine Protein Conf NEGATIVE (Negative) Urine Ketones NEGATIVE (NEGATIVE) Urine Nitrite NEGATIVE (NEGATIVE) Urine Bilirubin NEGATIVE (NEGATIVE) Urine Urobilinogen 0.2 (0-1) mg/dL Urine Leukocytes TRACE (NEGATIVE) Urine WBC (Auto) 3-5 (0-5) /HPF Urine RBC (Auto) NONE (0-2) /HPF U Epithel Cells (Auto) RARE (FEW) /HPF Urine Bacteria (Auto) RARE (NEGATIVE) /HPF Urine RBC NEGATIVE (0-5) Elbert/ul Urine Mucus (Auto) SLIGHT (NEGATIVE) /HPF Ur Culture Indicated? NO Urine Glucose NEGATIVE (NEGATIVE) mg/dL - Progress Progress: improved, re-examined Progress Note: 11/09/21 11:32 CAT scan of the head without contrast is negative for any acute intracranial abnormality. Counseled pt/family regarding: lab results, diagnosis, need for follow-up, rad results - Departure Departure Disposition: Home Clinical Impression: Dizziness, UTI (urinary tract infection), Cerumen in auditory canal on examination Condition: Stable Critical Care Time: No Referrals: AUSTIN RITTER MD [Primary Care Provider] - Follow up/PCP as directed Additional Instructions: Take your medication as prescribed. Call Dr. Ritter office today to make an appointment for further evaluation and management. Discussed referral to ear nose throat specialist and neurologist if indicated. Prescriptions: Meclizine HCl 25 mg [Antivert 25 mg] 25 mg PO Q8H PRN #10 tablet PRN Reason: Dizziness Ciprofloxacin [Cipro 500 MG] 500 mg PO BID #14 tablet
[2021-11-09 10:36] VITALS: BP 120/73
[2021-11-09] MEDS ORDERED: Sodium Chloride 0.9% 500 ML 500 ML IV ONE ×2 (10:46→11:30)
[2021-11-09 10:51] LABS: Absolute Neutrophil Ct (ANC) 5.18 (1.4-6.9); Basophil (Absolute #) 0.03 (0-0.4); Eosinophil (Absolute #) 0.07 (0-0.5); Hematocrit 40.4 % (35-47); Hemoglobin 12.7 gm/dl (12.0-16.0); Lymphocyte (Absolute #) 1.19 (1.0-4.6); Lymphocytes % 16.5 % (24.0-44.0); Mean Cell Volume 91.8 fl (78-100); Mean Corpuscular Hemoglobin 28.9 pg (26-32); Mean Corpuscular Hgb Concent. 31.4 g/dl (32-36); Mean Platelet Volume 10.6 fl (7.5-11.0); Monocyte (Absolute #) 0.76 (0.0-1.3); Monocytes % 10.5 % (0.0-12.0); Neutrophil % 71.6 % (36.0-66.0); Platelet Count 306 K/mm3 (150-450); Red Cell Distribution Width 15.6 % (11.5-14.0); White Blood Count 7.2 K/mm3 (4.0-10.5)
[2021-11-09 10:54] LABS: Appearance CLEAR (CLEAR); Bilirubin NEGATIVE (NEGATIVE); Glucose NEGATIVE (NEGATIVE); Ketones NEGATIVE (NEGATIVE); RBC NEGATIVE Ery/ul (0-5); Specific Gravity 1.015 (1.005-1.025)
[2021-11-09 10:55] LABS: Bacteria RARE /HPF (NEGATIVE); Dipstick done @ ? MAIN LAB; Epithelial Cells RARE /HPF (FEW); Mucus SLIGHT /HPF (NEGATIVE); Nitrite NEGATIVE (NEGATIVE); Protein,Urine Dip NEGATIVE (Negative); Urobilinogen 0.2 mg/dL (0-1)
[2021-11-09 11:03] LABS: ALBUMIN 4.1 g/dL (3.5-5.0); ANION GAP 17.6 MEQ/L (5-15); BILIRUBIN,TOTAL 0.8 mg/dL (0.2-1.3); Calcium 9.5 mg/dL (8.4-10.2); Creatinine 1 1.22 mg/dL (0.52-1.04); EST GLOMERULAR FILTRATION RATE 45.3 ML/MIN; MAGNESIUM 1.7 mg/dL (1.6-2.3); Potassium 4.4 mmol/L (3.5-5.1); Total Protein 7.8 g/dL (6.3-8.2)
--- NOTE | 2021-11-09 11:22 | XRAY ---
Indication: Dizziness 2 months. Near syncope. Multiple contiguous axial images obtained through the head without contrast. Comparison: Oct 02, 2013. Age-appropriate global atrophy. No acute intracranial hemorrhage, abnormal extra-axial fluid collection, or mass effect. Fourth ventricle is midline without hydrocephalus. Brito-white matter differentiation preserved. Bony calvarium intact. Visualized paranasal sinuses and mastoid air cells are clear. Impression: Continued negative CT head without contrast exam.
[2021-11-09 11:44] VITALS: PULSE 85; O2SAT 97
[2021-11-09] MEDS ORDERED: ANTIVERT 25 MG PO ONE (12:01)
[2021-11-09] MEDS ORDERED: ANTIVERT 25 MG ONE (12:06)
== END 2021-11-09 12:18 | disposition home or self-care (01) ==
LOC: ED 10:10
DX: N39.0 Urinary tract infection, site not specified (principal); R42 Dizziness and giddiness; H61.23 Impacted cerumen, bilateral; J44.9 Chronic obstructive pulmonary disease, unspecified; R00.2 Palpitations
CPT/HCPCS: 36000; 36415; 70450; 80053; 81015; 83735; 84484; 85025; 93005; 99284; A9270-GY

== ENCOUNTER 2021-11-24 05:53 | Day surgery (SDC) | payer MEDICARE, OTHER ==
[2021-11-24] MEDS ORDERED: Lactated Ringers 1,000 ML IV SCH (07:00)
[2021-11-24] MEDS ORDERED: DIPRIVAN 200 MG/20 ML IV ONE ×2 (07:09→07:49)
--- NOTE | 2021-11-24 08:06 | PCM.DCORD ---
- Discharge Disposition: Home, Self-Care Condition: Stable Prescriptions: New PANTOPRAZOLE 40 mg Tablet [Protonix 40MG Tablet] 40 mg PO QPM #30 tab Follow up with: AUSTIN RITTER MD [Primary Care Provider] -
[2021-11-24 09:03] VITALS: BP 142/75; PULSE 84; O2SAT 95
--- NOTE | 2021-11-24 11:47 | OP ---
SURGERY DATE/TIME: 11/24/2021 0733 PREOPERATIVE DIAGNOSES: 1) Nausea and vomiting. 2) Change in bowel habits. POSTOPERATIVE DIAGNOSES: 1) Moderate gastritis. 2) Diverticulosis. PROCEDURES: 1) EGD. 2) Colonoscopy. SURGEON: Heri Galicia M.D. ANESTHESIA: MAC by Navjot Prasad CRNA. ESTIMATED BLOOD LOSS: Minimal. SPECIMENS: Two cold forceps biopsies from the gastric antrum. DESCRIPTION OF PROCEDURE: After informed written consent was obtained, the patient was taken to the endoscopy suite. She was placed in the left lateral decubitus position and a bite block inserted. Anesthesia was titrated to desired level of consciousness and the endoscope was inserted into the posterior oropharynx. Under direct visualization the esophagus was easily traversed. Upon entering into the stomach the gastroesophageal junction had a normal gastric mucosa appearance. The stomach had a normal rugated gastric mucosa with no obvious lesions or abnormalities until I reached the area of the gastric antrum. There were moderate gastritis-type changes, no focal ulcerations or bleeding. The pylorus also revealed some mild duodenitis. Two cold forceps biopsies were taken from the gastric antrum and sent for Helicobacter pylori testing. No other abnormalities were encountered upon inspection. The scope was removed and the scopes were switched. Digital rectal exam showed normal sphincter tone and no internal lesions. The scope was inserted in the rectum and sequentially the entire colonic mucosa was traversed. The level of the cecum was reached and verified with direct visualization of the ileocecal valve. Upon withdrawal careful mucosal inspection revealed no gross abnormalities other than scattered diverticula mostly concentrated in the sigmoid colon. Prior to withdrawal retroflexion was performed and showed no internal lesions. The scope was removed and the patient was transferred to the recovery room in good condition. She will be started on proton pump inhibitor and advised to follow up in one week for pathology results.
== END 2021-11-24 08:58 | disposition home or self-care (01) ==
LOC: SDC 05:53
PROVIDERS: ATTEND Family Medicine
DX: K29.70 Gastritis, unspecified, without bleeding (principal); K57.90 Diverticulosis of intestine, part unspecified, without perforation or abscess without bleeding; R11.2 Nausea with vomiting, unspecified; R19.4 Change in bowel habit; K29.80 Duodenitis without bleeding
CPT/HCPCS: 99100; J2704

== ENCOUNTER 2022-02-21 09:04 | Emergency (ER) | payer MEDICARE, OTHER ==
[2022-02-21 09:21] VITALS: BP 158/90; PULSE 88; O2SAT 99
--- NOTE | 2022-02-21 09:45 | ERPHSYRPT ---
- History of Present Illness Time Seen by Provider: 02/21/22 09:19 Source: patient Exam Limitations: no limitations Patient Subjective Stated Complaint: Patient states she slipped getting out of the tub today and tried to catch herself when falling. C/O pain in bilateral w rists/lower arms when trying to use them. No pain when at rest. States fingers in right hand become numb at times since the fall. Triage Nursing Assessment: Ambulated back to ED without difficulties. No SOB. Alert and oriented. Radial pulses present. Skin tone to bilateral lower arms normal but right hand and fingers get ashy at times but then returns to normal. Physician History: 76 years old female presented in the ER with chief complaint of bilateral wrist pains after she was getting out of the shower tub, her foot slipped and tried to catch herself with outstretched both hands. No injury anywhere else. Complaining of more pain in the right side with movements and palpation of distal forearm and also some tingling sensation in the fingers intermittently. She is also complaining of pain in left wrist with movement but no finger tingling sensation of limited range of motion. Pain is moderate intensity sharp nature and better with resting. No obvious swelling. Occurred: just prior to arrival Method of Injury: fell Quality: sharpness Severity of Pain-Max: moderate Severity of Pain-Current: moderate Extremities Pain Location: forearm: bilateral, wrist: bilateral, hand: bilateral Modifying Factors: Improves With: immobilization. Worsens With: movement Associated Symptoms: none Allergies/Adverse Reactions: penicillin G Allergy (Verified 02/21/22 09:09) Home Medications: No Reportable Medications [No Reported Medications] 02/21/22 [History] Hx Tetanus, Diphtheria Vaccination/Date Given: Yes Hx Influenza Vaccination/Date Given: No Hx Pneumococcal Vaccination/Date Given: No Immunizations Up to Date: Yes Travel Risk - International Travel Have you traveled outside of the country in past 3 weeks: No - Coronavirus Screening Are you exhibiting any of the following symptoms?: No Close contact with a COVID-19 positive Pt in past 14-21 Days: No - Vaccine Status Have you recieved a Covid-19 vaccination: No - Review of Systems Constitutional: No Symptoms Eyes: No Symptoms Respiratory: No Symptoms Cardiac: No Symptoms Abdominal/Gastrointestinal: No Symptoms Genitourinary Symptoms: No Symptoms Musculoskeletal: Injury, Joint Pain Skin: No Symptoms Neurological: No Symptoms Psychological: No Symptoms Endocrine: No Symptoms Hematologic/Lymphatic: No Symptoms Immunological/Allergic: No Symptoms - Past Medical History Pertinent Past Medical History: Yes Neurological History: Stroke, Other ENT History: Cataracts Cardiac History: Myocardial Infarction ([place]) Respiratory History: COPD Endocrine Medical History: No Pertinent History Musculoskeletal History: Arthritis, Degenerative Disk Disease, Osteoarthritis GI Medical History: No Pertinent History History: No Pertinent History Psycho-Social History: No Pertinent History Female Reproductive Disorders: Breast Cancer Other Medical History: [place] several years ago. hx of copd is not treated - Past Surgical History Past Surgical History: Yes Neuro Surgical History: No Pertinent History Cardiac: No Pertinent History, Cardiac Catheterization Respiratory: No Pertinent History Gastrointestinal: No Pertinent History Genitourinary: No Pertinent History Musculoskeletal: No Pertinent History Female Surgical History: Hysterectomy, Mastectomy Other Surgical History: mastectomy left breast with lymphectomy 2004 - Social History Smoking Status: Former smoker How long have you smoked: 40 yr Exposure to second hand smoke: No Drug Use: none Patient Lives Alone: Yes Significant Family History: heart disease - Nursing Vital Signs Nursing Vital Signs: Initial Vital Signs Temperature 97.3 F 02/21/22 09:11 Pulse Rate 88 02/21/22 09:11 Respiratory Rate 20 02/21/22 09:11 Blood Pressure 158/90 02/21/22 09:11 O2 Sat by Pulse Oximetry 99 02/21/22 09:11 Pain Scale Pain Intensity 0 - Physical Exam General Appearance: no apparent distress, alert Neck Exam: normal inspection, supple, full range of motion Cardiovascular/Respiratory Exam: normal breath sounds, regular rate/rhythm Shoulder Exam: normal inspection, non-tender, no evidence of injury, normal ROM Elbow/Forearm Exam: normal inspection, normal ROM Wrist Exam: normal inspection, bone tenderness (Distal radius bilaterally with some tenderness on the dorsum of hand as well.), pain, soft tissue tenderness, No limited ROM Hand Exam: normal inspection, normal ROM Neuro/Tendon Exam: normal sensation, normal motor functions, normal tendon functions Mental Status Exam: alert, oriented x 3, cooperative Skin Exam: normal color SpO2 Interpretation: normal SpO2: 99 O2 Delivery: Room Air Ordered Tests: Active Orders 24 hr Category Date Time Status WRIST (2 VIEW) Stat Exams 02/21/22 Taken WRIST (2 VIEW) Stat Exams 02/21/22 09:25 Taken - Progress Progress: unchanged Progress Note: 02/21/22 09:41 She is offered pain medications multiple times but she refused. X-rays show fractured right distal radius reviewed by me and no obvious fracture on the left wrist, official reports are pending.placed in a posterior splint Ortho-Glass by RN with intact distal neurovascular reevaluation. I believe he has a sprain on the right side and placed in a Velcro splint. He does not want any stronger pain medications to go home except for Tylenol. She is advised to take it as needed and outpatient Ortho clinic follow-up tomorrow. Counseled pt/family regarding: diagnosis, need for follow-up, rad results - Departure Departure Disposition: Home Clinical Impression: Wrist fracture, right, Fall, Musculoskeletal strain Condition: Stable Critical Care Time: No Referrals: AUSTIN RITTER MD [Primary Care Provider] - Follow up/PCP as directed (1-2 days for reevaluation) ORTHO - HUNTER SHAFER NP [NON-STAFF PHY W/O PRIVILEGES] - Follow up/PCP as directed (Tomorrow morning for reevaluation) Instructions: Wrist Fracture (DC), Common Wrist Injuries (DC) Additional Instructions: Take Tylenol/ibuprofen as needed. Intermittent ice application. Avoid exertional, repetitive movements with both hands. Follow-up with orthopedic surgery for reevaluation tomorrow morning. Return to ER for any worsening.
--- NOTE | 2022-02-21 10:09 | XRAY ---
Indication: Pain following fall. Comparison: None 2 view left wrist demonstrates osteopenia, mild radiocarpal degenerative joint space narrowing, mild 1st metacarpal multangular degenerative changes, and benign-appearing distal forearm medial subcutaneous macrocalcification presumed sequela old injury/inflammation. Remaining wrist unremarkable.
--- NOTE | 2022-02-21 10:12 | XRAY ---
Indication: Pain following fall. Comparison: None 2 view right wrist obtained. Query nondisplaced distal radius fracture on the frontal view. Chronic findings including osteopenia, mild radiocarpal degenerative joint space narrowing, and mild 1st metacarpal multangular degenerative changes. Remaining wrist unremarkable
== END 2022-02-21 10:07 | disposition home or self-care (01) ==
LOC: ED 09:04
DX: S52.501A Unspecified fracture of the lower end of right radius, initial encounter for closed fracture (principal); S66.912A Strain of unspecified muscle, fascia and tendon at wrist and hand level, left hand, initial encounter; W18.2XXA Fall in (into) shower or empty bathtub, initial encounter; Y93.E1 Activity, personal bathing and showering; Y92.002 Bathroom of unspecified non-institutional (private) residence as the place of occurrence of the external cause; M25.531 Pain in right wrist; M25.532 Pain in left wrist; Z28.310 Unvaccinated for COVID-19
CPT/HCPCS: 29125; 73100; 99283; L3908

== ENCOUNTER 2022-08-13 10:59 | Emergency (ER) | payer MEDICARE, OTHER ==
[2022-08-13] MEDS ORDERED: Zofran 4 MG/2 ML VIAL IV ONE (11:49)
[2022-08-13] MEDS ORDERED: MORPHINE SULFATE 4 MG INJ IV ONE ×2 (11:49→14:19)
[2022-08-13] MEDS ORDERED: Sodium Chloride 0.9% 500 ML 500 ML IV ONE ×2 (11:49→12:00)
[2022-08-13] MEDS ORDERED: Zofran 4 MG/2 ML VIAL ONE (11:59)
[2022-08-13] MEDS ORDERED: MORPHINE SULFATE 4 MG INJ ONE ×2 (12:00→14:21)
[2022-08-13 12:36] LABS: Absolute Neutrophil Ct (ANC) 5.84 x10^3/uL (1.4-6.9); Basophil (Absolute #) 0.07 x10^3/uL (0-0.4); Eosinophil % 1.2 % (0.00-5.0); Hematocrit 48.1 % (35-47); Hemoglobin 14.8 g/dL (12.0-16.0); Lymphocyte (Absolute #) 1.55 x10^3/uL (1.0-4.6); Lymphocytes % 18.7 % (24.0-44.0); Mean Cell Volume 93.9 fL (78-100); Mean Corpuscular Hemoglobin 28.9 pg (26-32); Mean Corpuscular Hgb Concent. 30.8 g/dL (32-36); Mean Platelet Volume 11.2 fL (7.5-11.0); Monocyte (Absolute #) 0.69 x10^3/uL (0.0-1.3); Monocytes % 8.3 % (0.0-12.0); Neutrophil % 70.6 % (36.0-66.0); Platelet Count 321 x10^3/uL (150-450); Red Blood Count 5.12 x10^6/uL (4.1-5.4); White Blood Count 8.3 x10^3/uL (4.0-10.5)
[2022-08-13 12:55] LABS: Bacteria RARE /HPF (NEGATIVE); Mucus SLIGHT /HPF (NEGATIVE)
--- NOTE | 2022-08-13 12:57 | ERPHSYRPT ---
- History of Present Illness Time Seen by Provider: 08/13/22 11:03 Historian: patient Exam Limitations: no limitations Patient Subjective Stated Complaint: Abdominal pain Triage Nursing Assessment: ... Physician History: 77-year-old female without any diagnosed medical problem presented in the ER with chief complaint of epigastric and right upper quadrant pain since yesterday of moderate to severe sharp with radiation to the back and right shoulder blade area, aggravated with movements palpation since yesterday. Reports associated nausea and dry heaving. No chest pain palpitations or shortness of breath. Timing/Duration: yesterday, gradual onset, worse Activities at Onset: rest Quality: sharpness Abdominal Pain Onset Location: RUQ, epigastric Pain Radiation: back Severity of Pain-Max: severe Severity of Pain-Current: severe Modifying Factors: Worsens With: movement, palpation Associated Symptoms: nausea Previous symptoms: no prior history Allergies/Adverse Reactions: penicillin G Allergy (Verified 08/13/22 11:17) Home Medications: No Reportable Medications [No Reported Medications] 02/21/22 [History] Hx Tetanus, Diphtheria Vaccination/Date Given: Yes Hx Influenza Vaccination/Date Given: No Hx Pneumococcal Vaccination/Date Given: No Immunizations Up to Date: Yes Travel Risk - International Travel Have you traveled outside of the country in past 3 weeks: No - Coronavirus Screening Are you exhibiting any of the following symptoms?: No - Vaccine Status Have you recieved a Covid-19 vaccination: No - Review of Systems Constitutional: No Symptoms Eyes: No Symptoms Ears, Nose, & Throat: No Symptoms Respiratory: No Symptoms Cardiac: No Symptoms Abdominal/Gastrointestinal: Abdominal Pain, Nausea Genitourinary Symptoms: No Symptoms Musculoskeletal: No Symptoms Skin: No Symptoms Neurological: No Symptoms Psychological: No Symptoms Endocrine: No Symptoms Hematologic/Lymphatic: No Symptoms Immunological/Allergic: No Symptoms - Past Medical History Pertinent Past Medical History: Yes Neurological History: Stroke, Other ENT History: Cataracts Cardiac History: Myocardial Infarction ([place]) Respiratory History: COPD Endocrine Medical History: No Pertinent History Musculoskeletal History: Arthritis, Degenerative Disk Disease, Osteoarthritis GI Medical History: No Pertinent History History: No Pertinent History Psycho-Social History: No Pertinent History Female Reproductive Disorders: Breast Cancer Other Medical History: [place] several years ago. hx of copd is not treated - Past Surgical History Past Surgical History: Yes Neuro Surgical History: No Pertinent History Cardiac: No Pertinent History, Cardiac Catheterization Respiratory: No Pertinent History Gastrointestinal: No Pertinent History Genitourinary: No Pertinent History Musculoskeletal: No Pertinent History Female Surgical History: Hysterectomy, Mastectomy Other Surgical History: mastectomy left breast with lymphectomy 2004 - Social History Smoking Status: Former smoker How long have you smoked: 40 yr Exposure to second hand smoke: No Drug Use: none Patient Lives Alone: Yes Significant Family History: heart disease - Nursing Vital Signs Nursing Vital Signs: Initial Vital Signs Temperature 97.6 F 08/13/22 11:18 Pulse Rate 81 08/13/22 11:18 Respiratory Rate 18 08/13/22 11:18 Blood Pressure 177/128 08/13/22 11:18 O2 Sat by Pulse Oximetry 99 08/13/22 11:18 Pain Scale Pain Intensity 4 - Physical Exam General Appearance: no apparent distress, alert Eye Exam: PERRL/EOMI Ears, Nose, Throat Exam: normal ENT inspection Neck Exam: normal inspection, non-tender, supple, full range of motion Respiratory Exam: normal breath sounds, lungs clear Cardiovascular Exam: regular rate/rhythm, normal heart sounds Gastrointestinal/Abdomen Exam: soft, normal bowel sounds, tenderness (Right upper quadrant with positive Colbert sign), guarding Back Exam: normal inspection Extremity Exam: normal inspection, normal range of motion Neurologic Exam: alert, oriented x 3, cooperative Skin Exam: normal color SpO2 Interpretation: normal SpO2: 97 O2 Delivery: Room Air - Course EKG Interpreted by Me: RATE (77), Sinus Rhythm, NORMAL AXIS, NORMAL INTERVALS, Non-specific ST Changes Ordered Tests: Active Orders 24 hr Category Date Time Status IV Insertion STAT Care 08/13/22 11:49 Active NPO (ED) STAT Care 08/13/22 11:49 Active ABDOMEN AND PELVIS W/0 CONTRAS [CT] Stat Exams 08/13/22 11:49 Taken CHEST 1 VIEW (PORTABLE) Stat Exams 08/13/22 14:12 Taken CBC W DIFF Stat Lab 08/13/22 12:15 Completed CMP Stat Lab 08/13/22 12:15 Completed LIPASE Stat Lab 08/13/22 12:15 Completed Lactic Acid Stat Lab 08/13/22 11:49 Completed Lactic Acid Stat Lab 08/13/22 14:00 Received TROPONIN Q4H Lab 08/13/22 16:00 Ordered TROPONIN Q4H Lab 08/13/22 20:00 Ordered UA W/RFX CULTURE Stat Lab 08/13/22 12:12 Completed Medication Summary Generic Name Dose Route Start Last Admin Trade Name Yvette PRN Reason Stop Dose Admin Sodium Chloride 1,000 mls @ 100 mls/hr 08/13/22 14:30 08/13/22 14:27 Sodium Chloride 0.9% 1000 Ml IV 09/12/22 14:29 100 mls/hr .Q10H VIKA Administration Discontinued Medications Generic Name Dose Route Start Last Admin Trade Name Yvette PRN Reason Stop Dose Admin Sodium Chloride 500 mls @ 500 mls/hr 08/13/22 11:49 08/13/22 13:08 Sodium Chloride 0.9% 500 Ml IV 08/13/22 12:48 Infused .Q1H ONE Infusion Sodium Chloride Confirm 08/13/22 12:00 Sodium Chloride 0.9% 500 Ml Administered 08/13/22 12:01 Dose 500 mls @ ud IV .STK-MED ONE Morphine Sulfate 4 mg 08/13/22 11:49 08/13/22 12:02 Morphine Sulfate 4 Mg/Ml Injection IV 08/13/22 11:50 4 mg STAT ONE Administration Morphine Sulfate Confirm 08/13/22 12:00 Morphine Sulfate 4 Mg/Ml Injection Administered 08/13/22 12:01 Dose 4 mg .ROUTE .STK-MED ONE Morphine Sulfate 4 mg 08/13/22 14:19 08/13/22 14:22 Morphine Sulfate 4 Mg/Ml Injection IV 08/13/22 14:20 4 mg STAT ONE Administration Morphine Sulfate Confirm 08/13/22 14:21 Morphine Sulfate 4 Mg/Ml Injection Administered 08/13/22 14:22 Dose 4 mg .ROUTE .STK-MED ONE Ondansetron HCl 4 mg 08/13/22 11:49 08/13/22 12:01 Ondansetron Hcl 4 Mg/2 Ml Vial IV 08/13/22 11:50 4 mg STAT ONE Administration Ondansetron HCl Confirm 08/13/22 11:59 Ondansetron Hcl 4 Mg/2 Ml Vial Administered 08/13/22 12:00 Dose 4 mg .ROUTE .STK-MED ONE Lab/Rad Data: Laboratory Result Diagrams 08/13/22 12:15 08/13/22 12:15 Laboratory Results 08/13/22 08/13/22 08/13/22 Range/Units 12:15 12:15 12:15 WBC 8.3 (4.0-10.5) x10^3/uL RBC 5.12 (4.1-5.4) x10^6/uL Hgb 14.8 (12.0-16.0) g/dL Hct 48.1 H (35-47) % MCV 93.9 (78-100) fL MCH 28.9 (26-32) pg MCHC 30.8 L (32-36) g/dL RDW 15.0 H (11.5-14.0) % Plt Count 321 (150-450) x10^3/uL MPV 11.2 H (7.5-11.0) fL Gran % 70.6 H (36.0-66.0) % Immature Gran % (Auto) 0.4 (0.00-0.4) % Nucleat RBC Rel Count 0.0 (0.00-0.1) % Eos # (Auto) 0.10 (0-0.5) x10^3/uL Immature Gran # (Auto) 0.03 (0.00-0.03) x10^3u/L Absolute Lymphs (auto) 1.55 (1.0-4.6) x10^3/uL Absolute Monos (auto) 0.69 (0.0-1.3) x10^3/uL Absolute Nucleated RBC 0.00 (0.00-0.01) x10^3u/L Lymphocytes % 18.7 L (24.0-44.0) % Monocytes % 8.3 (0.0-12.0) % Eosinophils % 1.2 (0.00-5.0) % Basophils % 0.8 (0.0-0.4) % Absolute Granulocytes 5.84 (1.4-6.9) x10^3/uL Basophils # 0.07 (0-0.4) x10^3/uL Sodium 138 (137-145) mmol/L Potassium 4.9 (3.5-5.1) mmol/L Chloride 104 (98-107) mmol/L Carbon Dioxide 24 (22-30) mmol/L Anion Gap 14.5 (5-15) MEQ/L BUN 12 (7-17) mg/dL Creatinine 0.59 (0.52-1.04) mg/dL Estimated GFR > 60.0 ML/MIN Glucose 118 H (74-106) mg/dL Lactic Acid (0.4-2.0) Calcium 9.5 (8.4-10.2) mg/dL Total Bilirubin 0.50 (0.2-1.3) mg/dL AST 29 (14-36) U/L ALT 23 (0-35) U/L Alkaline Phosphatase 133 H (38-126) U/L Troponin 0.07 H (0.00-0.03) ng/mL Serum Total Protein 8.7 H (6.3-8.2) g/dL Albumin 4.6 (3.5-5.0) g/dL Lipase 167 (23-300) U/L Urinalys Dipstick Clnc Urine Color (YELLOW) Urine Appearance (CLEAR) Urine pH (5-6) Ur Specific [place] (1.005-1.025) POC Urine Protein Conf (Negative) Urine Ketones (NEGATIVE) Urine Nitrite (NEGATIVE) Urine Bilirubin (NEGATIVE) Urine Urobilinogen (0-1) mg/dL Urine Leukocytes (NEGATIVE) Urine WBC (Auto) (0-5) /HPF Urine RBC (Auto) (0-2) /HPF U Epithel Cells (Auto) (FEW) /HPF Urine Bacteria (Auto) (NEGATIVE) /HPF Urine RBC (0-5) Elbert/ul Urine Mucus (Auto) (NEGATIVE) /HPF Ur Culture Indicated? Urine Glucose (NEGATIVE) mg/dL 08/13/22 08/13/22 Range/Units 12:12 11:49 WBC (4.0-10.5) x10^3/uL RBC (4.1-5.4) x10^6/uL Hgb (12.0-16.0) g/dL Hct (35-47) % MCV (78-100) fL MCH (26-32) pg MCHC (32-36) g/dL RDW (11.5-14.0) % Plt Count (150-450) x10^3/uL MPV (7.5-11.0) fL Gran % (36.0-66.0) % Immature Gran % (Auto) (0.00-0.4) % Nucleat RBC Rel Count (0.00-0.1) % Eos # (Auto) (0-0.5) x10^3/uL Immature Gran # (Auto) (0.00-0.03) x10^3u/L Absolute Lymphs (auto) (1.0-4.6) x10^3/uL Absolute Monos (auto) (0.0-1.3) x10^3/uL Absolute Nucleated RBC (0.00-0.01) x10^3u/L Lymphocytes % (24.0-44.0) % Monocytes % (0.0-12.0) % Eosinophils % (0.00-5.0) % Basophils % (0.0-0.4) % Absolute Granulocytes (1.4-6.9) x10^3/uL Basophils # (0-0.4) x10^3/uL Sodium (137-145) mmol/L Potassium (3.5-5.1) mmol/L Chloride (98-107) mmol/L Carbon Dioxide (22-30) mmol/L Anion Gap (5-15) MEQ/L BUN (7-17) mg/dL Creatinine (0.52-1.04) mg/dL Estimated GFR ML/MIN Glucose (74-106) mg/dL Lactic Acid 2.2 H (0.4-2.0) Calcium (8.4-10.2) mg/dL Total Bilirubin (0.2-1.3) mg/dL AST (14-36) U/L ALT (0-35) U/L Alkaline Phosphatase (38-126) U/L Troponin (0.00-0.03) ng/mL Serum Total Protein (6.3-8.2) g/dL Albumin (3.5-5.0) g/dL Lipase (23-300) U/L Urinalys Dipstick Clnc MAIN LAB Urine Color YELLOW (YELLOW) Urine Appearance CLEAR (CLEAR) Urine pH 5.5 (5-6) Ur Specific [place] 1.020 (1.005-1.025) POC Urine Protein Conf NEGATIVE (Negative) Urine Ketones NEGATIVE (NEGATIVE) Urine Nitrite NEGATIVE (NEGATIVE) Urine Bilirubin NEGATIVE (NEGATIVE) Urine Urobilinogen 0.2 (0-1) mg/dL Urine Leukocytes NEGATIVE (NEGATIVE) Urine WBC (Auto) NONE (0-5) /HPF Urine RBC (Auto) NONE (0-2) /HPF U Epithel Cells (Auto) NONE (FEW) /HPF Urine Bacteria (Auto) RARE (NEGATIVE) /HPF Urine RBC NEGATIVE (0-5) Elbert/ul Urine Mucus (Auto) SLIGHT A (NEGATIVE) /HPF Ur Culture Indicated? NO Urine Glucose NEGATIVE (NEGATIVE) mg/dL - Progress Progress: improved, pain not gone completely Progress Note: 08/13/22 15:24 77-year-old is evaluated for epigastric and right upper quadrant pain. EKG showed sinus rhythm with no acute ST elevation. She is given fluids and morphine for symptomatic relief with some improvement in pain but still have pain needing multiple doses of pain medications. Has a normal white count, fairly unremarkable chemistries and no acute changes in liver enzymes. Initial troponin 1.07 but she denies any chest pain. No cardiac work-up done in the recent past. Obtain CT abdomen pelvis which showed distended gallbladder with cholelithiasis. I believe patient needs cholecystectomy but needs cardiac clearance before surgery can be done. Discussed with Dr. Galicia here who agrees with transfer to facility with cardiology services and consultation with general surgery. Discussed with Dr. Palomino at [facility] and patient is excepted for transfer. Discussed with : Axel, Other (Dr. Palomino [facility]) Counseled pt/family regarding: lab results, diagnosis, rad results - Departure Departure Disposition: Transfer Clinical Impression: Cholecystitis, Elevated troponin Condition: Stable Critical Care Time: No Referrals: AUSTIN GALICIA MD [Primary Care Provider] - Follow up/PCP as directed
[2022-08-13 13:02] LABS: ALBUMIN 4.6 g/dL (3.5-5.0); ALKALINE PHOSPHATASE 133 U/L (38-126); ANION GAP 14.5 MEQ/L (5-15); BLOOD UREA NITROGEN 12 mg/dL (7-17); CHLORIDE 104 mmol/L (98-107); Calcium 9.5 mg/dL (8.4-10.2); Carbon Dioxide 24 mmol/L (22-30); Creatinine 1 0.59 mg/dL (0.52-1.04); EST GLOMERULAR FILTRATION RATE > 60.0 ML/MIN; Glucose 118 mg/dL (74-106); LIPASE 167 U/L (23-300); Potassium 4.9 mmol/L (3.5-5.1); SGOT/AST 29 U/L (14-36); SGPT/ALT 23 U/L (0-35); SODIUM 138 mmol/L (137-145); Total Protein 8.7 g/dL (6.3-8.2)
[2022-08-13 13:02] LABS: Appearance CLEAR (CLEAR); Bilirubin NEGATIVE (NEGATIVE); Dipstick done @ ? MAIN LAB; Glucose NEGATIVE (NEGATIVE); Ketones NEGATIVE (NEGATIVE); Nitrite NEGATIVE (NEGATIVE); Ph 5.5 (5-6); Protein,Urine Dip NEGATIVE (Negative); RBC NEGATIVE Ery/ul (0-5); Urobilinogen 0.2 mg/dL (0-1)
[2022-08-13 13:05] LABS: Urine Cultured Indicated? NO
[2022-08-13 14:20] VITALS: PULSE 64
[2022-08-13] MEDS ORDERED: Sodium Chloride 0.9% 1000 ML 1,000 ML ONE (14:26)
[2022-08-13] MEDS ORDERED: Sodium Chloride 0.9% 1000 ML 1,000 ML IV SCH (14:30)
[2022-08-13 15:55] VITALS: BP 130/74; O2SAT 95
--- NOTE | 2022-08-13 21:14 | XRAY ---
Indication: Right upper quadrant pain. Multiple contiguous axial images obtained through the abdomen and pelvis without contrast. Comparison: January 16, 2013 Lung bases demonstrates mild dependent atelectasis. Stable right middle lobe calcified granuloma. Heart not enlarged. Noncontrasted stomach and bowel loops appear nonobstructed with normal appendix. Again mild diffuse scattered colonic fecal debris throughout and scattered colonic diverticulosis without diverticulitis. Again tiny splenic calcified granulomas, left renal cysts, and hysterectomy. Gallbladder mildly distended with new 1 cm gallstone. No free fluid/air. Remaining liver, pancreas, spleen, adrenal glands, kidneys, ureters, and bladder are unremarkable for noncontrast exam. Moderate scattered aortoiliac calcifications without AAA. Osseous structures intact with mild osteopenia and minimal/mild degenerative changes throughout the spine. Impression: 1. Mild distended gallbladder with gallstone. 2. Again mild diffuse fecal stasis, left renal cysts, arteriosclerotic disease, chronic bony findings, and old granulomatous disease. Comment: Preliminary interpretation made by C. No critical discrepancy.
--- NOTE | 2022-08-13 21:18 | XRAY ---
Indication: Epigastric pain. Comparison: June 20, 2020 Portable apical lordotic chest remains clear. Heart not enlarged. Bony thorax intact again with osteopenia and degenerative changes. No new/acute findings.
== END 2022-08-13 16:45 | disposition short-term general hospital (02) ==
LOC: ED 10:59
DX: K80.10 Calculus of gallbladder with chronic cholecystitis without obstruction (principal); R77.8 Other specified abnormalities of plasma proteins; R10.11 Right upper quadrant pain; R10.13 Epigastric pain; R11.0 Nausea; Z28.310 Unvaccinated for COVID-19
CPT/HCPCS: 36000; 36415; 71045; 74176; 80053; 81015; 83605; 83690; 84484; 85025; 93005; 96360; 96374; 96375; 96376; 99285; J2270; J2405

== ENCOUNTER 2022-08-17 08:38 | Inpatient (IN) | payer MEDICARE, OTHER ==
--- NOTE | 2022-08-17 08:46 | ERPHSYRPT ---
- History of Present Illness Time Seen by Provider: 08/17/22 08:46 Source: patient Exam Limitations: no limitations Physician History: 77-year-old female brought in by ambulance for severe back pain. Patient had a laparoscopic cholecystectomy on 08/14/2022 and was discharged from [facility] on 08/16/2022. Patient reports that the back pain started while she was in the hospital, but was able to move around at the time of discharge. This morning the patient woke up and the pain was so severe that she could no longer ambulate. She reports bilateral trapezius pain and midline lumbar spine pain that radiates both sides and down the legs. She states that she is able to move the legs but not able to put weight on them. She denies history of long-term steroid use, but does have a history of breast cancer that was treated in 2004. Patient reports that she has a bulging disc that was diagnosed in early and her pain is typically well controlled. Timing/Duration: day(s) (3), worse (this morning) Method of Injury: unknown Quality: radiating (b/l LE), sharp, stabbing Back Pain Location: lumbar spine, paraspinous muscles Back Pain Radiation: upper legs (b/l), lower legs (b/l), feet (b/l) Severity of Pain-Max: severe Severity of Pain-Current: severe Modifying Factors: Improves With: movement Associated Symptoms: numbness in legs/feet, weakness, tingling in legs/feet, lower back pain, No fever, No urinary incontinence, No loss of bowel control, No constipation, No problems urinating Previous symptoms: other (Hx of bulging disc in lumbar spine) Allergies/Adverse Reactions: penicillin G Allergy (Severe, Verified 08/17/22 18:19) Anaphylactic Reaction Home Medications: Hydrocodone/Acetaminophen [Hydrocodone-Acetamin 5-325 mg] 1 tab PO Q4-6HPRN PRN 08/17/22 [History] Metoprolol Tartrate 25 mg [Lopressor 25MG Tab] 25 mg PO BID 08/17/22 [History] NIFEdipine [Nifedipine ER] 30 mg PO DAILY 08/17/22 [History] Hx Tetanus, Diphtheria Vaccination/Date Given: Yes Hx Influenza Vaccination/Date Given: No Hx Pneumococcal Vaccination/Date Given: No Travel Risk - Vaccine Status Have you recieved a Covid-19 vaccination: No - Review of Systems Constitutional: Weakness, No Fever Eyes: No Symptoms Ears, Nose, & Throat: No Symptoms Respiratory: No Symptoms Cardiac: No Symptoms Abdominal/Gastrointestinal: Abdominal Pain (appropriately TTP near incisions), No Vomiting, No Constipation, No Melena Genitourinary Symptoms: Flank Pain, No Dysuria, No Hematuria Musculoskeletal: Back Pain, Neck Pain (b/l Trapezius), No Deformity, No Fall, No Injury, No Joint Redness Skin: Other (bandaged incisions on abdomen s/p lap wilian) Neurological: Gait Changes, Parasthesia, No Focal Weakness, No Speech Changes Psychological: No Symptoms Endocrine: No Symptoms Hematologic/Lymphatic: No Symptoms - Past Medical History Pertinent Past Medical History: Yes Neurological History: Stroke, Other ENT History: Cataracts Cardiac History: Myocardial Infarction (RI) Respiratory History: COPD Endocrine Medical History: No Pertinent History Musculoskeletal History: Arthritis, Degenerative Disk Disease, Osteoarthritis GI Medical History: No Pertinent History History: No Pertinent History Psycho-Social History: No Pertinent History Female Reproductive Disorders: Breast Cancer Other Medical History: RI several years ago. hx of copd is not treated - Past Surgical History Past Surgical History: Yes Neuro Surgical History: No Pertinent History Cardiac: No Pertinent History, Cardiac Catheterization Respiratory: No Pertinent History Gastrointestinal: No Pertinent History Genitourinary: No Pertinent History Musculoskeletal: No Pertinent History Female Surgical History: Hysterectomy, Mastectomy Other Surgical History: mastectomy left breast with lymphectomy 2004 - Social History Smoking Status: Former smoker How long have you smoked: 40 yr Exposure to second hand smoke: No Drug Use: none Patient Lives Alone: Yes Significant Family History: heart disease - Nursing Vital Signs Nursing Vital Signs: Initial Vital Signs Temperature 98 F 08/17/22 08:44 Pulse Rate 90 08/17/22 08:44 Respiratory Rate 20 08/17/22 08:44 Blood Pressure 158/92 08/17/22 08:44 O2 Sat by Pulse Oximetry 96 08/17/22 08:44 Pain Scale Pain Intensity [Lower back] 10 Pain Intensity 3 - Physical Exam General Appearance: severe distress Eye Exam: PERRL/EOMI, eyes nml inspection Ears, Nose, Throat Exam: normal ENT inspection Neck Exam: normal inspection, non-tender, supple, full range of motion, No Brudzinski, No Kernig's Respiratory Exam: normal breath sounds Cardiovascular Exam: regular rate/rhythm Gastrointestinal Exam: soft, tenderness, other (bandages in place over incisions) Back Exam: vertebral tenderness (lumbar), decreased range of motion, muscle spasm (b/l Trapezius), point tenderness (b/l lumbar paraspinals), other (+ straight leg raise b/l w/ decreased flexibility of hamstring, neg MAHIN, FADIR, 1+ patellar reflex b/l), No rash Extremity Exam: limited range of motion, No calf tenderness, No deformities, No swelling Neurologic Exam: alert, oriented x 3, cooperative, sensation nml, abnormal gait (unable to ambulate), No motor deficits, No motor weakness Skin Exam: normal color, warm, dry, No rash SpO2 Interpretation: normal O2 Delivery: Room Air - Course Nursing assessment & vital signs reviewed: Yes - CT Exams Lumbar Spine CT Interpretation: Other (L3-S1 DDD, MRI brain showed no CVA) Ordered Tests: Medication Summary Generic Name Dose Route Start Last Admin Trade Name Freq PRN Reason Stop Dose Admin Acetaminophen 650 mg 08/17/22 18:16 08/19/22 12:53 Acetaminophen 325 Mg Tablet PO 09/16/22 18:15 650 mg Q4H PRN PRN Administration PAIN AND/OR FEVER Cyclobenzaprine HCl 10 mg 08/19/22 15:00 Cyclobenzaprine Hcl 10 Mg Tablet PO 09/18/22 14:59 TID VIKA Enoxaparin Sodium 40 mg 08/19/22 22:00 Enoxaparin Sodium 40 Mg/0.4 Ml Syringe SQ 09/18/22 21:59 HS VIKA Famotidine 20 mg 08/19/22 22:00 Famotidine 20 Mg Tablet PO 09/18/22 21:59 BID VIKA Sodium Chloride 1,000 mls @ 100 mls/hr 08/17/22 18:16 08/19/22 13:39 Sodium Chloride 0.9% 1000 Ml IV 09/16/22 18:15 100 mls/hr .Q10H VIKA Administration Metoprolol Tartrate 25 mg 08/18/22 13:00 08/19/22 10:26 Metoprolol Tartrate 25 Mg Tab PO 09/17/22 12:59 25 mg BID VIKA Administration Morphine Sulfate 30 mg 08/17/22 18:16 08/18/22 16:05 Morphine Sulfate 1 Mg/Ml Instructional Aide 30 Ml Vial IV 08/22/22 18:15 30 mg PRN PRN Administration PAIN Nifedipine 30 mg 08/18/22 13:00 08/19/22 10:26 Nifedipine Xl 30 Mg Tablet.Sa PO 09/17/22 12:59 30 mg DAILY VIKA Administration Discontinued Medications Generic Name Dose Route Start Last Admin Trade Name Freq PRN Reason Stop Dose Admin Methylprednisolone Sodium 0 mg 08/17/22 17:34 08/17/22 17:36 Succinate 125 mg/ Sterile IV 08/17/22 17:35 125 mg Water 2 ml STAT ONE Administration Methylprednisolone Sodium 0 mg 08/17/22 17:42 08/17/22 17:46 Succinate 125 mg/ Sterile IV 08/17/22 17:43 Not Given Water 2 ml STAT ONE Cyanocobalamin 1,000 mcg 08/19/22 10:22 Cyanocobalamin 1000 Mcg/Ml Vial SQ 08/19/22 10:23 1XONLY ONE Cyclobenzaprine HCl 5 mg 08/17/22 08:58 08/17/22 09:29 Cyclobenzaprine Hcl 10 Mg Tablet PO 08/17/22 08:59 Not Given STAT ONE Cyclobenzaprine HCl 5 mg 08/17/22 09:23 08/17/22 09:29 Cyclobenzaprine Hcl 10 Mg Tablet PO 08/17/22 09:24 5 mg STAT ONE Administration Cyclobenzaprine HCl Confirm 08/17/22 09:27 Cyclobenzaprine Hcl 10 Mg Tablet Administered 08/17/22 09:28 Dose 10 mg .ROUTE .STK-MED ONE Cyclobenzaprine HCl 10 mg 08/17/22 18:16 08/18/22 21:13 Cyclobenzaprine Hcl 10 Mg Tablet PO 09/16/22 18:15 10 mg TID PRN PRN Administration MUSCLE SPASMS Enoxaparin Sodium 40 mg 08/18/22 10:00 08/18/22 09:42 Enoxaparin Sodium 40 Mg/0.4 Ml Syringe SQ 09/17/22 09:59 40 mg DAILY VIKA Administration Famotidine 20 mg 08/17/22 22:00 08/19/22 10:26 Famotidine 20 Mg/1 Vial IV 09/16/22 21:59 20 mg Q12HT VIKA Administration Fentanyl Citrate 50 mcg 08/17/22 08:58 08/17/22 09:30 Fentanyl Citrate 100 Mcg/2 Ml* Vial IV 08/17/22 08:59 Not Given STAT ONE Sodium Chloride 1,000 mls @ 999 mls/hr 08/17/22 11:43 08/17/22 12:47 Sodium Chloride 0.9% 1000 Ml IV 08/17/22 12:43 Infused .Q1H1M STA Infusion Sodium Chloride Confirm 08/17/22 11:45 Sodium Chloride 0.9% 1000 Ml Administered 08/17/22 11:46 Dose 1,000 mls @ ud .ROUTE .STK-MED ONE Ketorolac Tromethamine 60 mg 08/17/22 17:41 08/17/22 17:47 Ketorolac Tromethamine 30 Mg/Ml Inj IV 08/17/22 17:42 60 mg STAT ONE Administration Ketorolac Tromethamine Confirm 08/17/22 17:47 Ketorolac Tromethamine 30 Mg/Ml Inj Administered 08/17/22 17:48 Dose 30 mg .ROUTE .STK-MED ONE Ketorolac Tromethamine Confirm 08/17/22 17:48 Ketorolac Tromethamine 30 Mg/Ml Inj Administered 08/17/22 17:49 Dose 30 mg .ROUTE .STK-MED ONE Lorazepam 0.5 mg 08/19/22 03:32 08/19/22 03:41 Lorazepam 2 Mg/1 Ml 2 Mg Vial IV 08/19/22 03:33 0.5 mg 1XONLY ONE Administration Methylprednisolone Sodium Succinate Confirm 08/17/22 17:35 Methylprednis Sod Succ 125 Mg/2 Ml Vial Administered 08/17/22 17:36 Dose 125 mg .ROUTE .STK-MED ONE Morphine Sulfate 10 mg 08/17/22 09:23 08/17/22 09:29 Morphine Sulfate 10 Mg/Ml Injection IM 08/17/22 09:24 10 mg STAT ONE Administration Morphine Sulfate Confirm 08/17/22 09:28 Morphine Sulfate 10 Mg/Ml Injection Administered 08/17/22 09:29 Dose 10 mg .ROUTE .STK-MED ONE Morphine Sulfate 2 mg 08/17/22 13:49 08/17/22 17:58 Morphine Sulfate 2 Mg/Ml Inj IV 08/22/22 13:48 2 mg Q4H PRN PRN Administration PAIN Morphine Sulfate 4 mg 08/17/22 15:04 08/17/22 15:08 Morphine Sulfate 4 Mg/Ml Injection IV 08/17/22 15:05 4 mg STAT ONE Administration Morphine Sulfate Confirm 08/17/22 15:07 Morphine Sulfate 4 Mg/Ml Injection Administered 08/17/22 15:08 Dose 4 mg .ROUTE .STK-MED ONE Morphine Sulfate Confirm 08/17/22 13:51 Morphine Sulfate 2 Mg/Ml Inj Administered 08/17/22 13:52 Dose 2 mg .ROUTE .STK-MED ONE Morphine Sulfate Confirm 08/17/22 17:58 Morphine Sulfate 2 Mg/Ml Inj Administered 08/17/22 17:59 Dose 2 mg .ROUTE .STK-MED ONE Potassium Chloride 40 meq 08/17/22 11:43 08/17/22 11:48 Potassium Chloride Tab 10 Meq Tab PO 08/17/22 11:44 40 meq STAT ONE Administration Potassium Chloride Confirm 08/17/22 11:47 Potassium Chloride Tab 10 Meq Tab Administered 08/17/22 11:48 Dose 40 meq PO .STK-MED ONE Sterile Water Confirm 08/17/22 17:35 Water For Injection,Sterile 10 Ml Vial Administered 08/17/22 17:36 Dose 10 ml IJ .STK-MED ONE Lab/Rad Data: Laboratory Result Diagrams 08/18/22 04:27 08/18/22 04:27 Laboratory Results 08/18/22 08/18/22 08/17/22 Range/Units 04:27 04:27 14:56 WBC 7.1 (4.0-10.5) x10^3/uL RBC 4.93 (4.1-5.4) x10^6/uL Hgb 14.1 (12.0-16.0) g/dL Hct 44.2 (35-47) % MCV 89.7 (78-100) fL MCH 28.6 (26-32) pg MCHC 31.9 L (32-36) g/dL RDW 14.8 H (11.5-14.0) % Plt Count 350 (150-450) x10^3/uL MPV 10.2 (7.5-11.0) fL Gran % 84.4 H (36.0-66.0) % Immature Gran % (Auto) 0.6 H (0.00-0.4) % Nucleat RBC Rel Count 0.0 (0.00-0.1) % Eos # (Auto) 0 (0-0.5) x10^3/uL Immature Gran # (Auto) 0.04 H (0.00-0.03) x10^3u/L Absolute Lymphs (auto) 0.90 L (1.0-4.6) x10^3/uL Absolute Monos (auto) 0.16 (0.0-1.3) x10^3/uL Absolute Nucleated RBC 0.00 (0.00-0.01) x10^3u/L Lymphocytes % 12.7 L (24.0-44.0) % Monocytes % 2.3 (0.0-12.0) % Eosinophils % 0.0 (0.00-5.0) % Basophils % 0.0 (0.0-0.4) % Absolute Granulocytes 5.96 (1.4-6.9) x10^3/uL Basophils # 0 (0-0.4) x10^3/uL Sodium 129 L (137-145) mmol/L Potassium 3.7 (3.5-5.1) mmol/L Chloride 99 (98-107) mmol/L Carbon Dioxide 20 L (22-30) mmol/L Anion Gap 13.4 (5-15) MEQ/L BUN 12 (7-17) mg/dL Creatinine 0.43 L (0.52-1.04) mg/dL Estimated GFR > 60.0 ML/MIN Glucose 128 H (74-106) mg/dL Calcium 8.5 (8.4-10.2) mg/dL Total Bilirubin (0.2-1.3) mg/dL AST (14-36) U/L ALT (0-35) U/L Alkaline Phosphatase (38-126) U/L Creatine Kinase 40 (30-135) U/L Serum Total Protein (6.3-8.2) g/dL Albumin (3.5-5.0) g/dL Urinalys Dipstick Clnc Urine Color (YELLOW) Urine Appearance (CLEAR) Urine pH (5-6) Ur Specific [place] (1.005-1.025) POC Urine Protein Conf (Negative) Urine Ketones (NEGATIVE) Urine Nitrite (NEGATIVE) Urine Bilirubin (NEGATIVE) Urine Urobilinogen (0-1) mg/dL Urine Leukocytes (NEGATIVE) Urine WBC (Auto) (0-5) /HPF Urine RBC (Auto) (0-2) /HPF U Epithel Cells (Auto) (FEW) /HPF Urine Bacteria (Auto) (NEGATIVE) /HPF Urine RBC (0-5) Elbert/ul Urine Mucus (Auto) (NEGATIVE) /HPF Ur Culture Indicated? Urine Glucose (NEGATIVE) mg/dL Influenza Type A Ag (NEGATIVE) Influenza Type B Ag (NEGATIVE) RSV (PCR) (Negative) SARS-CoV-2 (PCR) (NEGATIVE) 08/17/22 08/17/22 08/17/22 Range/Units 13:43 12:40 10:08 WBC (4.0-10.5) x10^3/uL RBC (4.1-5.4) x10^6/uL Hgb (12.0-16.0) g/dL Hct (35-47) % MCV (78-100) fL MCH (26-32) pg MCHC (32-36) g/dL RDW (11.5-14.0) % Plt Count (150-450) x10^3/uL MPV (7.5-11.0) fL Gran % (36.0-66.0) % Immature Gran % (Auto) (0.00-0.4) % Nucleat RBC Rel Count (0.00-0.1) % Eos # (Auto) (0-0.5) x10^3/uL Immature Gran # (Auto) (0.00-0.03) x10^3u/L Absolute Lymphs (auto) (1.0-4.6) x10^3/uL Absolute Monos (auto) (0.0-1.3) x10^3/uL Absolute Nucleated RBC (0.00-0.01) x10^3u/L Lymphocytes % (24.0-44.0) % Monocytes % (0.0-12.0) % Eosinophils % (0.00-5.0) % Basophils % (0.0-0.4) % Absolute Granulocytes (1.4-6.9) x10^3/uL Basophils # (0-0.4) x10^3/uL Sodium 129 L (137-145) mmol/L Potassium 3.3 L (3.5-5.1) mmol/L Chloride 95 L (98-107) mmol/L Carbon Dioxide 26 (22-30) mmol/L Anion Gap 12.0 (5-15) MEQ/L BUN 17 (7-17) mg/dL Creatinine 0.58 (0.52-1.04) mg/dL Estimated GFR > 60.0 ML/MIN Glucose 118 H (74-106) mg/dL Calcium 9.2 (8.4-10.2) mg/dL Total Bilirubin 1.00 (0.2-1.3) mg/dL AST 39 H (14-36) U/L ALT 40 H (0-35) U/L Alkaline Phosphatase 121 (38-126) U/L Creatine Kinase (30-135) U/L Serum Total Protein 8.4 H (6.3-8.2) g/dL Albumin 4.5 (3.5-5.0) g/dL Urinalys Dipstick Clnc MAIN LAB Urine Color YELLOW (YELLOW) Urine Appearance CLEAR (CLEAR) Urine pH 6.0 (5-6) Ur Specific [place] 1.020 (1.005-1.025) POC Urine Protein Conf 30 A (Negative) Urine Ketones TRACE A (NEGATIVE) Urine Nitrite NEGATIVE (NEGATIVE) Urine Bilirubin NEGATIVE (NEGATIVE) Urine Urobilinogen 0.2 (0-1) mg/dL Urine Leukocytes NEGATIVE (NEGATIVE) Urine WBC (Auto) NONE (0-5) /HPF Urine RBC (Auto) NONE (0-2) /HPF U Epithel Cells (Auto) NONE (FEW) /HPF Urine Bacteria (Auto) NONE (NEGATIVE) /HPF Urine RBC NEGATIVE (0-5) Elbert/ul Urine Mucus (Auto) SLIGHT A (NEGATIVE) /HPF Ur Culture Indicated? NO Urine Glucose NEGATIVE (NEGATIVE) mg/dL Influenza Type A Ag NEGATIVE (NEGATIVE) Influenza Type B Ag NEGATIVE (NEGATIVE) RSV (PCR) NEGATIVE (Negative) SARS-CoV-2 (PCR) NEGATIVE (NEGATIVE) 08/17/22 Range/Units 10:08 WBC 9.0 (4.0-10.5) x10^3/uL RBC 5.14 (4.1-5.4) x10^6/uL Hgb 15.1 (12.0-16.0) g/dL Hct 47.2 H (35-47) % MCV 91.8 (78-100) fL MCH 29.4 (26-32) pg MCHC 32.0 (32-36) g/dL RDW 14.9 H (11.5-14.0) % Plt Count 341 (150-450) x10^3/uL MPV 9.9 (7.5-11.0) fL Gran % 82.6 H (36.0-66.0) % Immature Gran % (Auto) 0.3 (0.00-0.4) % Nucleat RBC Rel Count 0.0 (0.00-0.1) % Eos # (Auto) 0.01 (0-0.5) x10^3/uL Immature Gran # (Auto) 0.03 (0.00-0.03) x10^3u/L Absolute Lymphs (auto) 1.03 (1.0-4.6) x10^3/uL Absolute Monos (auto) 0.47 (0.0-1.3) x10^3/uL Absolute Nucleated RBC 0.00 (0.00-0.01) x10^3u/L Lymphocytes % 11.5 L (24.0-44.0) % Monocytes % 5.3 (0.0-12.0) % Eosinophils % 0.1 (0.00-5.0) % Basophils % 0.2 (0.0-0.4) % Absolute Granulocytes 7.39 H (1.4-6.9) x10^3/uL Basophils # 0.02 (0-0.4) x10^3/uL Sodium (137-145) mmol/L Potassium (3.5-5.1) mmol/L Chloride (98-107) mmol/L Carbon Dioxide (22-30) mmol/L Anion Gap (5-15) MEQ/L BUN (7-17) mg/dL Creatinine (0.52-1.04) mg/dL Estimated GFR ML/MIN Glucose (74-106) mg/dL Calcium (8.4-10.2) mg/dL Total Bilirubin (0.2-1.3) mg/dL AST (14-36) U/L ALT (0-35) U/L Alkaline Phosphatase (38-126) U/L Creatine Kinase (30-135) U/L Serum Total Protein (6.3-8.2) g/dL Albumin (3.5-5.0) g/dL Urinalys Dipstick Clnc Urine Color (YELLOW) Urine Appearance (CLEAR) Urine pH (5-6) Ur Specific [place] (1.005-1.025) POC Urine Protein Conf (Negative) Urine Ketones (NEGATIVE) Urine Nitrite (NEGATIVE) Urine Bilirubin (NEGATIVE) Urine Urobilinogen (0-1) mg/dL Urine Leukocytes (NEGATIVE) Urine WBC (Auto) (0-5) /HPF Urine RBC (Auto) (0-2) /HPF U Epithel Cells (Auto) (FEW) /HPF Urine Bacteria (Auto) (NEGATIVE) /HPF Urine RBC (0-5) Elbert/ul Urine Mucus (Auto) (NEGATIVE) /HPF Ur Culture Indicated? Urine Glucose (NEGATIVE) mg/dL Influenza Type A Ag (NEGATIVE) Influenza Type B Ag (NEGATIVE) RSV (PCR) (Negative) SARS-CoV-2 (PCR) (NEGATIVE) - Progress Progress: re-examined Progress Note: on arrival we were unable to obtain IV access so patient was given 10 mg of morphine IM and cyclobenzaprine 10 mg by mouth which gave her some relief for roughly 2 hours. Patient was then requesting more pain medication because the pain had started back at the same intensity as arrival this time I gave her a dose of 2 mg of morphine which did not touch the pain at all so another 4 mg of morphine was given which also did not help the patient. At this time we were transferring the patient over to the bedside commode and patient had no control over her lower extremities. I repeated a complete neuro exam in the exam remained consistent with the initial except now the patient had no motor function in bilateral lower extremities unable to even hold her legs up against gravity. Her pain continued to be 10 out 10 in severity. I discussed the case with the radiologist to discuss getting a stat MRI brain as well as possibly getting an MRI of the lumbar spine, but after discussing the case with him he felt that the CT would have given us the information we needed with the back and advised continuing with the MRI of the brain. Stat MRI brain was then ordered patient proceeded to get this done. It showed no evidence of CVA. The exam was completed without contrast. After there was no hemorrhagic CVA noted a dose of 125 mg of Solu-Medrol and 60 mg of Toradol were given to help with inflammation and pain control. During the entire stay patient continued to show no signs of meningitis, she was afebrile with no white count full range of motion in her neck with negative Kernig and Brudzinski signs. The differential diagnosis for bilateral lower extremity weakness with severe lumbar pain are few including spinal cord compression, Guillain-[place], stroke, CMV, thyrotoxic periodic paralysis, hyperkalemic periodic paralysis and varicella zoster. I discussed admission of this patient with Dr. Galicia who is agreeable to admit for pain control and further evaluation of neurologic symptoms. 08/19/22 15:10 Discussed with : Axel Will see patient in: hospital (observation) Counseled pt/family regarding: lab results, rad results - Departure Departure Disposition: Observation Clinical Impression: Intractable back pain, Inability to ambulate due to multiple joints, Hyponatremia, Hypokalemia, DDD (degenerative disc disease), lumbar Condition: Fair Critical Care Time: No
[2022-08-17] MEDS ORDERED: Cyclobenzaprine 10 MG PO ONE ×2 (08:58→09:23)
[2022-08-17] MEDS ORDERED: SUBLIMAZE 100 MCG/2 ML IV ONE (08:58)
[2022-08-17] MEDS ORDERED: MORPHINE SULFATE 10 MG/ML IM ONE (09:23)
[2022-08-17] MEDS ORDERED: Cyclobenzaprine 10 MG ONE (09:27)
[2022-08-17] MEDS ORDERED: MORPHINE SULFATE 10 MG/ML ONE (09:28)
--- NOTE | 2022-08-17 10:01 | XRAY ---
Indication: Lumbar pain. No known injury. Multiple contiguous axial images obtained through the lumbar spine. Sagittal and coronal reformatted images obtained. Comparison: August 13, 2022 Osseous structures remain demineralized. Stable minimal/mild L3-S1 broad-based disc bulge and L5-S1 vacuum disc phenomena. Facets are symmetric again with mild bilateral L5-S1 generative facet arthropathy. Sagittal and coronal reformatted images again demonstrates normal lumbar alignment with minimal L4-S1 disc space narrowing. No acute compression fracture or subluxation. Visualized noncontrasted soft tissues again demonstrates moderately arteriosclerotic/ectatic aorta, mild sigmoid diverticulosis, and left renal cysts. Impression: No change compared to CT 4 days ago again demonstrating L3-S1 degenerative disc disease, sigmoid diverticulosis, arteriosclerotic disease, and left renal cysts. No new/acute findings.
[2022-08-17 10:18] LABS: Absolute Neutrophil Ct (ANC) 7.39 x10^3/uL (1.4-6.9); BASOPHIL % 0.2 % (0.0-0.4); Basophil (Absolute #) 0.02 x10^3/uL (0-0.4); Eosinophil % 0.1 % (0.00-5.0); Eosinophil (Absolute #) 0.01 x10^3/uL (0-0.5); Hematocrit 47.2 % (35-47); Hemoglobin 15.1 g/dL (12.0-16.0); IMMATURE GRAN # 0.03 x10^3u/L (0.00-0.03); IMMATURE GRAN % 0.3 % (0.00-0.4); Lymphocyte (Absolute #) 1.03 x10^3/uL (1.0-4.6); Lymphocytes % 11.5 % (24.0-44.0); Mean Cell Volume 91.8 fL (78-100); Mean Corpuscular Hemoglobin 29.4 pg (26-32); Mean Platelet Volume 9.9 fL (7.5-11.0); Monocyte (Absolute #) 0.47 x10^3/uL (0.0-1.3); Monocytes % 5.3 % (0.0-12.0); Neutrophil % 82.6 % (36.0-66.0); Platelet Count 341 x10^3/uL (150-450); Red Blood Count 5.14 x10^6/uL (4.1-5.4); Red Cell Distribution Width 14.9 % (11.5-14.0)
[2022-08-17 10:32] LABS: ALBUMIN 4.5 g/dL (3.5-5.0); ALKALINE PHOSPHATASE 121 U/L (38-126); BLOOD UREA NITROGEN 17 mg/dL (7-17); CHLORIDE 95 mmol/L (98-107); Calcium 9.2 mg/dL (8.4-10.2); Carbon Dioxide 26 mmol/L (22-30); Creatinine 1 0.58 mg/dL (0.52-1.04); EST GLOMERULAR FILTRATION RATE > 60.0 ML/MIN; Glucose 118 mg/dL (74-106); Potassium 3.3 mmol/L (3.5-5.1); SGOT/AST 39 U/L (14-36); SGPT/ALT 40 U/L (0-35); SODIUM 129 mmol/L (137-145); Total Protein 8.4 g/dL (6.3-8.2)
[2022-08-17] MEDS ORDERED: Sodium Chloride 0.9% 1000 ML 1,000 ML IV STA (11:43)
[2022-08-17] MEDS ORDERED: Klor Con PO ONE ×2 (11:43→11:47)
[2022-08-17] MEDS ORDERED: Sodium Chloride 0.9% 1000 ML 1,000 ML ONE (11:45)
[2022-08-17 13:11] LABS: Appearance CLEAR (CLEAR); Bilirubin NEGATIVE (NEGATIVE); Dipstick done @ ? MAIN LAB; Glucose NEGATIVE (NEGATIVE); Ketones TRACE (NEGATIVE); Nitrite NEGATIVE (NEGATIVE); Protein,Urine Dip 30 (Negative); RBC NEGATIVE Ery/ul (0-5); Urobilinogen 0.2 mg/dL (0-1)
[2022-08-17 13:17] LABS: Mucus SLIGHT /HPF (NEGATIVE)
[2022-08-17 13:35] LABS: Urine Cultured Indicated? NO
[2022-08-17] MEDS ORDERED: MORPHINE SULFATE 2 MG INJ ONE ×2 (13:51→17:58)
[2022-08-17] MEDS: MORPHINE SULFATE 2 MG INJ IV PRN ×2 (13:52→17:58)
[2022-08-17 14:35] LABS: INFLUENZA A NEGATIVE (NEGATIVE); INFLUENZA B NEGATIVE (NEGATIVE); RESPIRATORY SYNCTIAL VIRUS NEGATIVE (Negative); SARS-CoV-2 Xpert Express NEGATIVE (NEGATIVE)
[2022-08-17] MEDS ORDERED: MORPHINE SULFATE 4 MG INJ IV ONE (15:04)
[2022-08-17] MEDS ORDERED: MORPHINE SULFATE 4 MG INJ ONE (15:07)
--- NOTE | 2022-08-17 17:22 | XRAY ---
Indication: Bilateral lower extremity weakness. Sagittal, coronal, and axial MRI brain performed without contrast using T1, T2, FLAIR, diffusion, and ADC sequences. Comparison: May 23, 2018 Again age-appropriate global atrophy and minimal periventricular degenerative micro-ischemia bilaterally. No acute intracranial hemorrhage, abnormal extra-axial fluid collection, or mass effect. Diffusion images are negative for restricted signal. Fourth ventricle is midline without hydrocephalus. 7/8 cranial nerve complex bilaterally symmetric. Normal flow void signal within the major intracerebral circulation. Normal appearing craniocervical junction and sella turcica. Paranasal sinuses are clear. Impression: Continued normal aging brain as detailed. Remaining MRI brain without contrast exam is again negative.
[2022-08-17] MEDS ORDERED: solu-MEDROL 125 MG, Sterile H2O 10 ml 2 ML IV ONE ×4 (17:34→17:42)
[2022-08-17] MEDS ORDERED: Sterile H2O 10 ml IJ ONE (17:35)
[2022-08-17] MEDS ORDERED: solu-MEDROL ONE (17:35)
[2022-08-17] MEDS ORDERED: TORAdol 30 mg Injection IV ONE (17:41)
[2022-08-17] MEDS ORDERED: TORAdol 30 mg Injection ONE ×2 (17:47→17:48)
[2022-08-17] MEDS: Morphine PCA 1 MG/ML IV PRN (19:12)
[2022-08-17] MEDS: Sodium Chloride 0.9% 1000 ML 1,000 ML IV SCH (19:18)
[2022-08-17] MEDS: Pepcid 20 MG VIAL IV SCH (22:21)
--- NOTE | 2022-08-17 23:33 | PCM.HP ---
History of Present Illness - Chief Complaint Chief Complaint: Intractible back pain History of Present Illness: is a 77 year old female who came to the ER today with intractable back pain, she has severe pain in her lower and upper back with no known injury, she had a cholecystectomy at [place] on 08/14 and was released yesterday. Her workup was essentially negative in the ER today including brain MRI and lumbar spine ct. She fell at home last night, states her legs feel like rubber when she tries to walk - Review of Systems Constitutional: No Fever, No Chills Respiratory: No Cough, No Short Of Breath Cardiac: No Chest Pain, No Edema, No Syncope Musculoskeletal: Back Pain All Other Systems: Reviewed and Negative Medications & Allergies Home Medications: Home Medication List Hydrocodone/Acetaminophen [Hydrocodone-Acetamin 5-325 mg] 1 tab PO Q4-6HPRN PRN 08/17/22 [History Confirmed 08/17/22] Metoprolol Tartrate 25 mg [Lopressor 25MG Tab] 25 mg PO BID 08/17/22 [History Confirmed 08/17/22] NIFEdipine [Nifedipine ER] 30 mg PO DAILY 08/17/22 [History Confirmed 08/17/22] Allergies/Adverse Reactions: Allergies Allergy/AdvReac Type Severity Reaction Status Date / Time penicillin G Allergy Severe Anaphylactic Verified 08/17/22 18:19 Reaction - Past Medical History Past Medical History: Yes Neurological History: Stroke, Other ENT History: Cataracts Cardiac History: Myocardial Infarction ([place]) Respiratory History: COPD Endocrine Medical History: No Pertinent History Musculoskelatal History: Arthritis, Degenerative Disk Disease, Osteoarthritis GI Medical History: No Pertinent History History: No Pertinent History Pyscho-Social History: No Pertinent History Reproductive Disorders: Breast Cancer Comment: [place] several years ago. hx of copd is not treated - Female History Are you now?: No - Past Surgical History Past Surgical History: Yes Neuro Surgical History: No Pertinent History Cardiac History: No Pertinent History, Cardiac Catheterization Respiratory Surgery: No Pertinent History GI Surgical History: No Pertinent History Genitourinary Surgical Hx: No Pertinent History Musculskeletal Surgical Hx: No Pertinent History Female Surgical History: Hysterectomy, Mastectomy Other Surgical History: mastectomy left breast with lymphectomy 2004 - Social History Smoking Status: Never smoker How long have you smoked: 40 yr Exposure to second hand smoke: No Alcohol: None Drug Use: none Significant Family History: heart disease - Physical Exam Vital Signs: Vital Signs - 24 hr Temp Pulse Resp BP Pulse Ox 08/17/22 21:31 95 08/17/22 20:00 97.5 F 80 18 178/85 94 L 08/17/22 19:12 18 97 08/17/22 18:18 97.5 F 80 18 178/85 97 08/17/22 16:06 81 18 162/102 97 08/17/22 12:00 76 16 163/90 95 08/17/22 11:00 76 16 143/90 96 08/17/22 08:44 98 F 90 20 158/92 96 General Appearance: no apparent distress Neurologic Exam: alert, oriented x 3, cooperative, No motor deficits, No sensory deficit Respiratory Exam: normal breath sounds, lungs clear, No respiratory distress Cardiovascular Exam: regular rate/rhythm, normal heart sounds, normal peripheral pulses Gastrointestinal/Abdomen Exam: soft, normal bowel sounds, No tenderness, No mass Skin Exam: normal color, warm, dry, No rash Results - Labs Lab/Micro Results: Lab Results-Last 24 Hours 08/17/22 08/17/22 08/17/22 Range/Units 10:08 10:08 12:40 WBC 9.0 (4.0-10.5) x10^3/uL RBC 5.14 (4.1-5.4) x10^6/uL Hgb 15.1 (12.0-16.0) g/dL Hct 47.2 H (35-47) % MCV 91.8 (78-100) fL MCH 29.4 (26-32) pg MCHC 32.0 (32-36) g/dL RDW 14.9 H (11.5-14.0) % Plt Count 341 (150-450) x10^3/uL MPV 9.9 (7.5-11.0) fL Gran % 82.6 H (36.0-66.0) % Immature Gran % (Auto) 0.3 (0.00-0.4) % Nucleat RBC Rel Count 0.0 (0.00-0.1) % Eos # (Auto) 0.01 (0-0.5) x10^3/uL Immature Gran # (Auto) 0.03 (0.00-0.03) x10^3u/L Absolute Lymphs (auto) 1.03 (1.0-4.6) x10^3/uL Absolute Monos (auto) 0.47 (0.0-1.3) x10^3/uL Absolute Nucleated RBC 0.00 (0.00-0.01) x10^3u/L Lymphocytes % 11.5 L (24.0-44.0) % Monocytes % 5.3 (0.0-12.0) % Eosinophils % 0.1 (0.00-5.0) % Basophils % 0.2 (0.0-0.4) % Absolute Granulocytes 7.39 H (1.4-6.9) x10^3/uL Basophils # 0.02 (0-0.4) x10^3/uL Sodium 129 L (137-145) mmol/L Potassium 3.3 L (3.5-5.1) mmol/L Chloride 95 L (98-107) mmol/L Carbon Dioxide 26 (22-30) mmol/L Anion Gap 12.0 (5-15) MEQ/L BUN 17 (7-17) mg/dL Creatinine 0.58 (0.52-1.04) mg/dL Estimated GFR > 60.0 ML/MIN Glucose 118 H (74-106) mg/dL Calcium 9.2 (8.4-10.2) mg/dL Total Bilirubin 1.00 (0.2-1.3) mg/dL AST 39 H (14-36) U/L ALT 40 H (0-35) U/L Alkaline Phosphatase 121 (38-126) U/L Creatine Kinase (30-135) U/L Serum Total Protein 8.4 H (6.3-8.2) g/dL Albumin 4.5 (3.5-5.0) g/dL Urinalys Dipstick Clnc MAIN LAB Urine Color YELLOW (YELLOW) Urine Appearance CLEAR (CLEAR) Urine pH 6.0 (5-6) Ur Specific [place] 1.020 (1.005-1.025) POC Urine Protein Conf 30 A (Negative) Urine Ketones TRACE A (NEGATIVE) Urine Nitrite NEGATIVE (NEGATIVE) Urine Bilirubin NEGATIVE (NEGATIVE) Urine Urobilinogen 0.2 (0-1) mg/dL Urine Leukocytes NEGATIVE (NEGATIVE) Urine WBC (Auto) NONE (0-5) /HPF Urine RBC (Auto) NONE (0-2) /HPF U Epithel Cells (Auto) NONE (FEW) /HPF Urine Bacteria (Auto) NONE (NEGATIVE) /HPF Urine RBC NEGATIVE (0-5) Elbert/ul Urine Mucus (Auto) SLIGHT A (NEGATIVE) /HPF Ur Culture Indicated? NO Urine Glucose NEGATIVE (NEGATIVE) mg/dL Influenza Type A Ag (NEGATIVE) Influenza Type B Ag (NEGATIVE) RSV (PCR) (Negative) SARS-CoV-2 (PCR) (NEGATIVE) 08/17/22 08/17/22 Range/Units 13:43 14:56 WBC (4.0-10.5) x10^3/uL RBC (4.1-5.4) x10^6/uL Hgb (12.0-16.0) g/dL Hct (35-47) % MCV (78-100) fL MCH (26-32) pg MCHC (32-36) g/dL RDW (11.5-14.0) % Plt Count (150-450) x10^3/uL MPV (7.5-11.0) fL Gran % (36.0-66.0) % Immature Gran % (Auto) (0.00-0.4) % Nucleat RBC Rel Count (0.00-0.1) % Eos # (Auto) (0-0.5) x10^3/uL Immature Gran # (Auto) (0.00-0.03) x10^3u/L Absolute Lymphs (auto) (1.0-4.6) x10^3/uL Absolute Monos (auto) (0.0-1.3) x10^3/uL Absolute Nucleated RBC (0.00-0.01) x10^3u/L Lymphocytes % (24.0-44.0) % Monocytes % (0.0-12.0) % Eosinophils % (0.00-5.0) % Basophils % (0.0-0.4) % Absolute Granulocytes (1.4-6.9) x10^3/uL Basophils # (0-0.4) x10^3/uL Sodium (137-145) mmol/L Potassium (3.5-5.1) mmol/L Chloride (98-107) mmol/L Carbon Dioxide (22-30) mmol/L Anion Gap (5-15) MEQ/L BUN (7-17) mg/dL Creatinine (0.52-1.04) mg/dL Estimated GFR ML/MIN Glucose (74-106) mg/dL Calcium (8.4-10.2) mg/dL Total Bilirubin (0.2-1.3) mg/dL AST (14-36) U/L ALT (0-35) U/L Alkaline Phosphatase (38-126) U/L Creatine Kinase 40 (30-135) U/L Serum Total Protein (6.3-8.2) g/dL Albumin (3.5-5.0) g/dL Urinalys Dipstick Clnc Urine Color (YELLOW) Urine Appearance (CLEAR) Urine pH (5-6) Ur Specific [place] (1.005-1.025) POC Urine Protein Conf (Negative) Urine Ketones (NEGATIVE) Urine Nitrite (NEGATIVE) Urine Bilirubin (NEGATIVE) Urine Urobilinogen (0-1) mg/dL Urine Leukocytes (NEGATIVE) Urine WBC (Auto) (0-5) /HPF Urine RBC (Auto) (0-2) /HPF U Epithel Cells (Auto) (FEW) /HPF Urine Bacteria (Auto) (NEGATIVE) /HPF Urine RBC (0-5) Elbert/ul Urine Mucus (Auto) (NEGATIVE) /HPF Ur Culture Indicated? Urine Glucose (NEGATIVE) mg/dL Influenza Type A Ag NEGATIVE (NEGATIVE) Influenza Type B Ag NEGATIVE (NEGATIVE) RSV (PCR) NEGATIVE (Negative) SARS-CoV-2 (PCR) NEGATIVE (NEGATIVE) - Radiology Impressions Radiology Exams & Impressions: Radiology Procedures Category Date Time Status LUMBAR SPINE W/O [CT] Stat Exams 08/17/22 08:59 Completed MRI BRAIN W/O CONTRAST [MRI] Stat Exams 08/17/22 15:05 Completed - Other Procedures and Tests Respiratory Therapy 08/17/22 21:30 Oxygen Nasal Cannula 2 lpm Assessment/Plan (1) Intractable back pain Current Visit: Yes Status: Acute Assessment & Plan: continue [employer], will consult PT but patient may well need rehab stay due to back pain, inability to walk and falls. Code(s): M54.9 - DORSALGIA, UNSPECIFIED (2) Inability to ambulate due to multiple joints Current Visit: Yes Status: Acute Code(s): R26.2 - DIFFICULTY IN WALKING, NOT ELSEWHERE CLASSIFIED
[2022-08-18 05:14] LABS: Absolute Neutrophil Ct (ANC) 5.96 x10^3/uL (1.4-6.9); Basophil (Absolute #) 0 x10^3/uL (0-0.4); Eosinophil (Absolute #) 0 x10^3/uL (0-0.5); Hematocrit 44.2 % (35-47); Hemoglobin 14.1 g/dL (12.0-16.0); IMMATURE GRAN # 0.04 x10^3u/L (0.00-0.03); IMMATURE GRAN % 0.6 % (0.00-0.4); Lymphocytes % 12.7 % (24.0-44.0); Mean Cell Volume 89.7 fL (78-100); Mean Corpuscular Hemoglobin 28.6 pg (26-32); Mean Corpuscular Hgb Concent. 31.9 g/dL (32-36); Mean Platelet Volume 10.2 fL (7.5-11.0); Monocyte (Absolute #) 0.16 x10^3/uL (0.0-1.3); Monocytes % 2.3 % (0.0-12.0); Neutrophil % 84.4 % (36.0-66.0); Platelet Count 350 x10^3/uL (150-450); Red Blood Count 4.93 x10^6/uL (4.1-5.4); Red Cell Distribution Width 14.8 % (11.5-14.0); White Blood Count 7.1 x10^3/uL (4.0-10.5)
[2022-08-18] MEDS: Sodium Chloride 0.9% 1000 ML 1,000 ML IV SCH ×2 (05:23→15:50)
[2022-08-18 05:47] LABS: ANION GAP 13.4 MEQ/L (5-15); BLOOD UREA NITROGEN 12 mg/dL (7-17); CHLORIDE 99 mmol/L (98-107); Calcium 8.5 mg/dL (8.4-10.2); Carbon Dioxide 20 mmol/L (22-30); Creatinine 1 0.43 mg/dL (0.52-1.04); EST GLOMERULAR FILTRATION RATE > 60.0 ML/MIN; Glucose 128 mg/dL (74-106); Potassium 3.7 mmol/L (3.5-5.1); SODIUM 129 mmol/L (137-145)
[2022-08-18] MEDS: Pepcid 20 MG VIAL IV SCH ×2 (09:42→21:14)
[2022-08-18] MEDS ORDERED: ENOXAPARIN SODIUM SQ SCH (10:00)
--- NOTE | 2022-08-18 11:04 | PCM.NOTE ---
Date and Time: 08/18/22 1102 Subjective Assessment: patient very weak in her legs, required 2 assist to ambulate with PT, now her right arm is weak and very difficult for her to use. no recent vaccinations Objective Exam General Appearance: no apparent distress Neurologic Exam: alert, oriented x 3, motor deficits (weakness BLE 2/5 strength, right arm 2/5. no discernible reflexes to knee jerk BLE) Respiratory Exam: normal breath sounds, lungs clear, No respiratory distress Cardiovascular Exam: regular rate/rhythm, normal heart sounds Gastrointestinal/Abdomen Exam: soft, No tenderness, No mass OBJECTIVE DATA Vital Signs: Vital Signs - 24 hr Temp Pulse Resp BP Pulse Ox 08/18/22 07:41 97.8 F 108 H 16 144/69 94 L 08/18/22 07:21 96 08/18/22 07:15 18 93 L 08/18/22 04:00 97.8 F 89 16 143/85 93 L 08/18/22 00:00 98.7 F 100 H 17 179/92 92 L 08/17/22 21:31 95 08/17/22 20:00 97.5 F 80 18 178/85 94 L 08/17/22 19:12 18 97 08/17/22 18:18 97.5 F 80 18 178/85 97 08/17/22 16:06 81 18 162/102 97 08/17/22 12:00 76 16 163/90 95 Pain Assessment - Last Documented Pain Intensity [Lower back] 10 Pain Intensity 3 Pain Scale Used 0-10 Pain Scale Intake and Output: Intake & Output 08/15/22 08/16/22 08/17/22 08/18/22 11:59 11:59 11:59 11:59 Intake Total 440 Output Total 1200 Balance -760 Weight 70.307 kg 70.1 kg Lab Results: Lab Results-Last 24 Hours 08/17/22 08/17/22 08/17/22 Range/Units 12:40 13:43 14:56 WBC (4.0-10.5) x10^3/uL RBC (4.1-5.4) x10^6/uL Hgb (12.0-16.0) g/dL Hct (35-47) % MCV (78-100) fL MCH (26-32) pg MCHC (32-36) g/dL RDW (11.5-14.0) % Plt Count (150-450) x10^3/uL MPV (7.5-11.0) fL Gran % (36.0-66.0) % Immature Gran % (Auto) (0.00-0.4) % Nucleat RBC Rel Count (0.00-0.1) % Eos # (Auto) (0-0.5) x10^3/uL Immature Gran # (Auto) (0.00-0.03) x10^3u/L Absolute Lymphs (auto) (1.0-4.6) x10^3/uL Absolute Monos (auto) (0.0-1.3) x10^3/uL Absolute Nucleated RBC (0.00-0.01) x10^3u/L Lymphocytes % (24.0-44.0) % Monocytes % (0.0-12.0) % Eosinophils % (0.00-5.0) % Basophils % (0.0-0.4) % Absolute Granulocytes (1.4-6.9) x10^3/uL Basophils # (0-0.4) x10^3/uL Sodium (137-145) mmol/L Potassium (3.5-5.1) mmol/L Chloride (98-107) mmol/L Carbon Dioxide (22-30) mmol/L Anion Gap (5-15) MEQ/L BUN (7-17) mg/dL Creatinine (0.52-1.04) mg/dL Estimated GFR ML/MIN Glucose (74-106) mg/dL Calcium (8.4-10.2) mg/dL Creatine Kinase 40 (30-135) U/L Urinalys Dipstick Clnc MAIN LAB Urine Color YELLOW (YELLOW) Urine Appearance CLEAR (CLEAR) Urine pH 6.0 (5-6) Ur Specific [place] 1.020 (1.005-1.025) POC Urine Protein Conf 30 A (Negative) Urine Ketones TRACE A (NEGATIVE) Urine Nitrite NEGATIVE (NEGATIVE) Urine Bilirubin NEGATIVE (NEGATIVE) Urine Urobilinogen 0.2 (0-1) mg/dL Urine Leukocytes NEGATIVE (NEGATIVE) Urine WBC (Auto) NONE (0-5) /HPF Urine RBC (Auto) NONE (0-2) /HPF U Epithel Cells (Auto) NONE (FEW) /HPF Urine Bacteria (Auto) NONE (NEGATIVE) /HPF Urine RBC NEGATIVE (0-5) Elbert/ul Urine Mucus (Auto) SLIGHT A (NEGATIVE) /HPF Ur Culture Indicated? NO Urine Glucose NEGATIVE (NEGATIVE) mg/dL Influenza Type A Ag NEGATIVE (NEGATIVE) Influenza Type B Ag NEGATIVE (NEGATIVE) RSV (PCR) NEGATIVE (Negative) SARS-CoV-2 (PCR) NEGATIVE (NEGATIVE) 08/18/22 08/18/22 Range/Units 04:27 04:27 WBC 7.1 (4.0-10.5) x10^3/uL RBC 4.93 (4.1-5.4) x10^6/uL Hgb 14.1 (12.0-16.0) g/dL Hct 44.2 (35-47) % MCV 89.7 (78-100) fL MCH 28.6 (26-32) pg MCHC 31.9 L (32-36) g/dL RDW 14.8 H (11.5-14.0) % Plt Count 350 (150-450) x10^3/uL MPV 10.2 (7.5-11.0) fL Gran % 84.4 H (36.0-66.0) % Immature Gran % (Auto) 0.6 H (0.00-0.4) % Nucleat RBC Rel Count 0.0 (0.00-0.1) % Eos # (Auto) 0 (0-0.5) x10^3/uL Immature Gran # (Auto) 0.04 H (0.00-0.03) x10^3u/L Absolute Lymphs (auto) 0.90 L (1.0-4.6) x10^3/uL Absolute Monos (auto) 0.16 (0.0-1.3) x10^3/uL Absolute Nucleated RBC 0.00 (0.00-0.01) x10^3u/L Lymphocytes % 12.7 L (24.0-44.0) % Monocytes % 2.3 (0.0-12.0) % Eosinophils % 0.0 (0.00-5.0) % Basophils % 0.0 (0.0-0.4) % Absolute Granulocytes 5.96 (1.4-6.9) x10^3/uL Basophils # 0 (0-0.4) x10^3/uL Sodium 129 L (137-145) mmol/L Potassium 3.7 (3.5-5.1) mmol/L Chloride 99 (98-107) mmol/L Carbon Dioxide 20 L (22-30) mmol/L Anion Gap 13.4 (5-15) MEQ/L BUN 12 (7-17) mg/dL Creatinine 0.43 L (0.52-1.04) mg/dL Estimated GFR > 60.0 ML/MIN Glucose 128 H (74-106) mg/dL Calcium 8.5 (8.4-10.2) mg/dL Creatine Kinase (30-135) U/L Urinalys Dipstick Clnc Urine Color (YELLOW) Urine Appearance (CLEAR) Urine pH (5-6) Ur Specific [place] (1.005-1.025) POC Urine Protein Conf (Negative) Urine Ketones (NEGATIVE) Urine Nitrite (NEGATIVE) Urine Bilirubin (NEGATIVE) Urine Urobilinogen (0-1) mg/dL Urine Leukocytes (NEGATIVE) Urine WBC (Auto) (0-5) /HPF Urine RBC (Auto) (0-2) /HPF U Epithel Cells (Auto) (FEW) /HPF Urine Bacteria (Auto) (NEGATIVE) /HPF Urine RBC (0-5) Elbert/ul Urine Mucus (Auto) (NEGATIVE) /HPF Ur Culture Indicated? Urine Glucose (NEGATIVE) mg/dL Influenza Type A Ag (NEGATIVE) Influenza Type B Ag (NEGATIVE) RSV (PCR) (Negative) SARS-CoV-2 (PCR) (NEGATIVE) Radiology Exams: Radiology Procedures Category Date Time Status CERVICAL SPINE WO CONTRAST [CT] Routine Exams 08/18/22 11:00 Ordered LUMBAR SPINE W/O [CT] Stat Exams 08/17/22 08:59 Completed MRI BRAIN W/O CONTRAST [MRI] Stat Exams 08/17/22 15:05 Completed THORACIC SPINE W/O CONTRAST [CT] Routine Exams 08/18/22 11:00 Ordered Assessment/Plan (1) Weakness of both legs Current Visit: Yes Status: Acute Assessment & Plan: seems to have ascending weakness with lack of relfexes BLE, exam is difficult. recommend further imaging of c-spine and t-spine and LP to evaluate CSF protein to r/o Guillain-[place], teleneuro consult ordered Code(s): R29.898 - [facility] SYMPTOMS AND SIGNS INVOLVING THE MUSCULOSKELETAL SYSTEM (2) Intractable back pain Current Visit: Yes Status: Acute Code(s): M54.9 - DORSALGIA, UNSPECIFIED (3) Inability to ambulate due to multiple joints Current Visit: Yes Status: Acute Code(s): R26.2 - DIFFICULTY IN WALKING, NOT ELSEWHERE CLASSIFIED
[2022-08-18] MEDS: Lopressor 25MG Tab PO SCH ×2 (12:25→21:14)
[2022-08-18] MEDS: Adalat CC 30 MG TABLET PO SCH (12:25)
--- NOTE | 2022-08-18 15:44 | XRAY ---
Indication: Leg weakness. Back pain. Multiple contiguous images obtained through the cervical spine. Sagittal and coronal reformatted images obtained. Comparison: None. There is cervical radiograph December 11, 2020. Osseous structures demineralized consistent with patient's age. Axial images negative for acute fracture, suspicious bony lesions, or spinal canal stenosis. Minimal C4-C7 degenerative endplate spurring and mild multilevel left-sided degenerative facet hypertrophy. Sagittal and coronal reformatted images demonstrates lordotic straightening. Minimal C6-C7 disc space narrowing. No acute compression fracture, subluxation, or jumped facet. Normal appearing craniocervical junction. Visualized noncontrasted soft tissues demonstrates moderate bilateral carotid calcifications. Base of brain unremarkable. CT thoracic spine reported separately. Impression: Osteopenia, cervical lordotic straightening, multilevel degenerative changes, and bilateral carotid calcifications. Overall appearance is similar to cervical radiograph December 11, 2020.
[2022-08-18] MEDS: Cyclobenzaprine 10 MG PO PRN ×2 (15:50→21:13)
--- NOTE | 2022-08-18 15:50 | XRAY ---
Indication: Leg weakness. Back pain. Multiple contiguous axial images obtained through the thoracic spine. Sagittal and coronal reformatted images obtained. Comparison: None. CT cervical spine reported separately. Osseous structures demineralized consistent with patient's age. Axial images negative for acute fracture, suspicious bony lesions, or spinal canal stenosis. Superior endplate T7 demonstrates prominent Schmorl node. Sagittal and coronal reformatted images demonstrates normal thoracic alignment. Disc spaces maintained. No acute compression fracture or subluxation. Visualized noncontrasted soft tissues demonstrates diffuse pulmonary emphysema, right upper lobe calcified granuloma, moderate bibasilar subsegmental atelectasis, small left hilar calcified node, and mild scattered vascular calcifications. Impression: 1. Osteopenia and T7 Schmorl node. 2. Soft tissue findings including pulmonary emphysema, bibasilar subsegmental atelectasis, arteriosclerotic disease, and old granulomatous disease. 3. Remaining CT thoracic spine is negative.
[2022-08-18] MEDS: Morphine PCA 1 MG/ML IV PRN (16:05)
[2022-08-18 21:18] LABS: CK-Creatinine Phosphokinase 23 U/L (30-135); LDH-LACTATE DEHYDROGENASE 162 U/L (120-246)
[2022-08-18 22:09] LABS: TSH, 3RD Generation 1.22 mIU/L (0.47-4.68)
[2022-08-18] MEDS: TYLENOL 325 MG PO PRN (23:08)
[2022-08-19] MEDS: Sodium Chloride 0.9% 1000 ML 1,000 ML IV SCH ×3 (02:26→23:29)
[2022-08-19] MEDS ORDERED: Ativan 2 MG/1 ML VIAL IV ONE (03:32)
[2022-08-19 09:16] LABS: CSF GLUCOSE 66 mg/dL (40-70); CSF PROTEIN 78 mg/dL (12-60)
[2022-08-19 09:18] LABS: BODY FLUID CELL COUNT WBC 0.002 x10^3u/L
[2022-08-19] MEDS ORDERED: Cyanocobalamin B-12 1000 MCG/ML SQ ONE ×2 (10:22→18:00)
[2022-08-19] MEDS: Lopressor 25MG Tab PO SCH ×2 (10:26→21:36)
[2022-08-19] MEDS: Pepcid 20 MG VIAL IV SCH (10:26)
[2022-08-19] MEDS: Adalat CC 30 MG TABLET PO SCH (10:26)
--- NOTE | 2022-08-19 10:29 | PCM.NOTE ---
Date and Time: 08/19/22 1025 Subjective Assessment: Patient admitted for sudden onset of intractable back pain and loss of the use of her legs.Neeraj states she was walking without assistance prior to tis sudden change. Teleneurologist consult appreciated and following his recommendations. LP today, await MRI C-D-L sagittal views to R/O myelitis. MRI not available as of 11 am today. Will ask reeval by teleneuro. Daughter is at bedside and is asking the Morphine be changed bc and not herself on this. Objective Exam General Appearance: no apparent distress, lethargy Neurologic Exam: motor deficits (Bilat LE strength 1-2/5 -unable to lift her legs but does lift heel slightly off of the bed and canshift her knees slightly side to side. upper extremity strength 3-4/5), other (sleeping but awakens alert and oriented with clear speech and following commands), No sensation nml, No facial droop, No slurred speech, No dysarthria Cardiovascular Exam: regular rate/rhythm Gastrointestinal/Abdomen Exam: soft, tenderness Extremity Exam: other (see neuro), No inflammation, No pedal edema OBJECTIVE DATA Vital Signs: Vital Signs - 24 hr Temp Pulse Resp BP Pulse Ox 08/19/22 09:05 95 08/19/22 08:00 97.0 F 86 16 182/83 91 L 08/19/22 04:00 91 H 18 95 08/19/22 03:41 82 20 08/19/22 00:05 18 99 08/19/22 00:00 97.7 F 82 20 156/82 93 L 08/18/22 21:03 94 L 08/18/22 20:00 97.5 F 79 13 185/86 93 L 08/18/22 19:55 91 L 08/18/22 16:00 98.4 F 81 14 195/81 96 08/18/22 11:57 98.2 F 88 16 229/100 100 Pain Assessment - Last Documented Pain Intensity [Lower back] 10 Pain Intensity 10 Pain Scale Used 0-10 Pain Scale Intake and Output: Intake & Output 08/16/22 08/17/22 08/18/22 08/19/22 11:59 11:59 11:59 11:59 Intake Total 440 1030 Output Total 1200 3300 Balance -760 -2270 Weight 70.307 kg 70.1 kg Lab Results: Lab Results-Last 24 Hours 08/18/22 08/18/22 08/18/22 Range/Units 21:01 21:01 21:01 Specimen Type ESR 58 H (0-20) mm/hr Lactate Dehydrogenase 162 (120-246) U/L Creatine Kinase 23 L (30-135) U/L Vitamin B12 291 (239-931) pg/mL TSH 3rd Generation 1.220 (0.47-4.68) mIU/L Fluid Color Fluid Clarity Fluid WBC (Auto) x10^3u/L Fluid RBC (Auto) x10^6u/L Fld Polynuclear WBCs % % Fl Mononuclear % Auto % CSF Protein (2) (12-60) mg/dL CSF Glucose (40-70) mg/dL 08/19/22 08/19/22 Range/Units 08:53 Unknown Specimen Type Pending ESR (0-20) mm/hr Lactate Dehydrogenase (120-246) U/L Creatine Kinase (30-135) U/L Vitamin B12 (239-931) pg/mL TSH 3rd Generation (0.47-4.68) mIU/L Fluid Color Pending Fluid Clarity Pending Fluid WBC (Auto) 0.002 x10^3u/L Fluid RBC (Auto) 0.000 x10^6u/L Fld Polynuclear WBCs % 0.000 % Fl Mononuclear % Auto 100.000 % CSF Protein (2) 78 H (12-60) mg/dL CSF Glucose 66 (40-70) mg/dL Radiology Exams: Radiology Procedures Category Date Time Status CERVICAL SPINE WO CONTRAST [CT] Routine Exams 08/18/22 11:00 Completed MRI BRAIN W/O CONTRAST [MRI] Stat Exams 08/17/22 15:05 Completed THORACIC SPINE W/O CONTRAST [CT] Routine Exams 08/18/22 11:00 Completed Multi-Disciplinary Progress Notes: Multi-Disciplinary Progress Notes 08/18/22 13:28 Case Management Note by Brynn Hunter REFERRAL FAXED TO [facility] Initialized on 08/18/22 13:28 - END OF NOTE Assessment/Plan (1) Partial paralysis of both lower limbs Current Visit: Yes Status: Acute Assessment & Plan: sudden onset Code(s): G82.20 - PARAPLEGIA, UNSPECIFIED (2) Intractable back pain Current Visit: Yes Status: Acute Assessment & Plan: Morphine is controlling pain but daughter states it is making patient act weird so stopped Morphine,will add flexeril and start Percocet Code(s): M54.9 - DORSALGIA, UNSPECIFIED (3) HTN (hypertension) Current Visit: Yes Status: Chronic Assessment & Plan: monitor Code(s): I10 - ESSENTIAL (PRIMARY) HYPERTENSION (4) B12 deficiency Current Visit: Yes Status: Acute Assessment & Plan: B12 injection ordered x 1 Code(s): E53.8 - DEFICIENCY OF OTHER SPECIFIED B GROUP VITAMINS
[2022-08-19 11:27] LABS: BF CLARITY CLEAR (CLEAR); BF SPECIMEN TYPE CSF; BF-COLOR COLORLESS (COLORLESS)
[2022-08-19 11:33] LABS: Absolute Neutrophil Ct (ANC) 9.88 x10^3/uL (1.4-6.9); BASOPHIL % 0.2 % (0.0-0.4); Basophil (Absolute #) 0.02 x10^3/uL (0-0.4); Eosinophil % 0.1 % (0.00-5.0); Eosinophil (Absolute #) 0.01 x10^3/uL (0-0.5); Hematocrit 44.9 % (35-47); Hemoglobin 14.6 g/dL (12.0-16.0); IMMATURE GRAN # 0.04 x10^3u/L (0.00-0.03); IMMATURE GRAN % 0.3 % (0.00-0.4); Lymphocyte (Absolute #) 1.01 x10^3/uL (1.0-4.6); Lymphocytes % 8.7 % (24.0-44.0); Mean Cell Volume 88.9 fL (78-100); Mean Corpuscular Hemoglobin 28.9 pg (26-32); Mean Corpuscular Hgb Concent. 32.5 g/dL (32-36); Mean Platelet Volume 9.3 fL (7.5-11.0); Monocyte (Absolute #) 0.62 x10^3/uL (0.0-1.3); Monocytes % 5.4 % (0.0-12.0); Neutrophil % 85.3 % (36.0-66.0); Platelet Count 346 x10^3/uL (150-450); Red Blood Count 5.05 x10^6/uL (4.1-5.4); Red Cell Distribution Width 14.6 % (11.5-14.0); White Blood Count 11.6 x10^3/uL (4.0-10.5)
[2022-08-19 11:47] LABS: ALBUMIN 4.2 g/dL (3.5-5.0); ALKALINE PHOSPHATASE 113 U/L (38-126); ANION GAP 11.5 MEQ/L (5-15); BLOOD UREA NITROGEN 11 mg/dL (7-17); CHLORIDE 92 mmol/L (98-107); Calcium 8.3 mg/dL (8.4-10.2); Carbon Dioxide 23 mmol/L (22-30); Creatinine 1 0.28 mg/dL (0.52-1.04); EST GLOMERULAR FILTRATION RATE > 60.0 ML/MIN; Glucose 130 mg/dL (74-106); Potassium 3.3 mmol/L (3.5-5.1); SGOT/AST 45 U/L (14-36); SGPT/ALT 43 U/L (0-35); SODIUM 124 mmol/L (137-145); Total Protein 7.7 g/dL (6.3-8.2)
[2022-08-19] MEDS: TYLENOL 325 MG PO PRN (12:53)
[2022-08-19] MEDS: Cyclobenzaprine 10 MG PO SCH ×2 (16:05→21:36)
[2022-08-19] MEDS ORDERED: OXYCODONE-ACETAMINOPHEN 10-325 ONE (19:43)
[2022-08-19] MEDS: PERCOCET TABLET 5/325MG PO PRN (19:48)
[2022-08-19] MEDS: Pepcid 20 MG PO SCH (21:36)
[2022-08-19] MEDS: ENOXAPARIN SODIUM SQ SCH (21:36)
[2022-08-20] MEDS ORDERED: Ativan 2 MG/1 ML VIAL IV ONE (02:43)
[2022-08-20] MEDS: PERCOCET TABLET 5/325MG PO PRN ×4 (06:39→21:21)
[2022-08-20 06:42] LABS: CRP (C-Reative Protein) Quant 16 mg/L (0-10)
[2022-08-20] MEDS: Sodium Chloride 0.9% 1000 ML 1,000 ML IV SCH ×3 (07:33→15:03)
[2022-08-20 07:58] LABS: Absolute Neutrophil Ct (ANC) 9.49 x10^3/uL (1.4-6.9); BASOPHIL % 0.2 % (0.0-0.4); Basophil (Absolute #) 0.02 x10^3/uL (0-0.4); Eosinophil % 0.1 % (0.00-5.0); Eosinophil (Absolute #) 0.01 x10^3/uL (0-0.5); Hematocrit 43.5 % (35-47); Hemoglobin 14.2 g/dL (12.0-16.0); IMMATURE GRAN # 0.05 x10^3u/L (0.00-0.03); IMMATURE GRAN % 0.4 % (0.00-0.4); Lymphocyte (Absolute #) 1.36 x10^3/uL (1.0-4.6); Lymphocytes % 11.7 % (24.0-44.0); Mean Cell Volume 88.6 fL (78-100); Mean Corpuscular Hemoglobin 28.9 pg (26-32); Mean Corpuscular Hgb Concent. 32.6 g/dL (32-36); Mean Platelet Volume 9.6 fL (7.5-11.0); Monocyte (Absolute #) 0.73 x10^3/uL (0.0-1.3); Monocytes % 6.3 % (0.0-12.0); Neutrophil % 81.3 % (36.0-66.0); Platelet Count 354 x10^3/uL (150-450); Red Blood Count 4.91 x10^6/uL (4.1-5.4); Red Cell Distribution Width 14.3 % (11.5-14.0); White Blood Count 11.7 x10^3/uL (4.0-10.5)
[2022-08-20 08:13] LABS: ALBUMIN 3.9 g/dL (3.5-5.0); ALKALINE PHOSPHATASE 106 U/L (38-126); ANION GAP 10.3 MEQ/L (5-15); BLOOD UREA NITROGEN 12 mg/dL (7-17); CHLORIDE 90 mmol/L (98-107); Calcium 8.1 mg/dL (8.4-10.2); Carbon Dioxide 24 mmol/L (22-30); Creatinine 1 0.32 mg/dL (0.52-1.04); EST GLOMERULAR FILTRATION RATE > 60.0 ML/MIN; Glucose 128 mg/dL (74-106); SGOT/AST 37 U/L (14-36); SGPT/ALT 37 U/L (0-35); SODIUM 121 mmol/L (137-145); Total Protein 7.2 g/dL (6.3-8.2)
[2022-08-20 08:16] LABS: Potassium 2.9 mmol/L (3.5-5.1)
[2022-08-20] MEDS: POTASSIUM CHLORIDE 20 mEq IN WATER 100ML 100 ML IV SCH ×6 (08:33→18:30)
[2022-08-20] MEDS ORDERED: APRESOLINE 20 MG/ML INJ IV PRN (08:35)
[2022-08-20] MEDS: ECOTRIN 81 MG PO SCH (10:19)
[2022-08-20] MEDS: Pepcid 20 MG PO SCH ×2 (10:19→21:16)
[2022-08-20] MEDS: Cyclobenzaprine 10 MG PO SCH ×3 (10:20→21:16)
[2022-08-20] MEDS: Adalat CC 30 MG TABLET PO SCH (10:20)
[2022-08-20] MEDS: Lopressor 25MG Tab PO SCH ×2 (10:20→21:16)
--- NOTE | 2022-08-20 14:26 | PCM.NOTE ---
Date and Time: 08/20/22 1420 Subjective Assessment: Pt was increasingly disoriented this morning; she did get ativan about 4:30 am. She is somnolent but intermittently alert. Speaks with slurred voice but daughter can understand some of what she says. Does not answer questions appropriately. Per daughter she does have memory issues at times. - Review of Systems Constitutional: No Fever All Other Systems: Unable due to condition Objective Exam General Appearance: no apparent distress, other (somnolent and alert by turns.) Neurologic Exam: slurred speech, other (wiggles toes, but cannot move legs otherwise. Pat reflexes absent bilat. moves arms against gravity.) Skin Exam: normal color, warm, dry, No rash Eye Exam: eyes nml inspection Ears, Nose, Throat Exam: moist mucous membranes Neck Exam: normal inspection Respiratory Exam: normal breath sounds, lungs clear, No crackles/rales, No rhonc hi, No wheezing Cardiovascular Exam: regular rate/rhythm, normal heart sounds, No murmur Gastrointestinal/Abdomen Exam: soft, normal bowel sounds, No distention, No mass Extremity Exam: normal inspection, No pedal edema, No swelling Back Exam: normal inspection, No rash OBJECTIVE DATA Vital Signs: Vital Signs - 24 hr Temp Pulse Resp BP Pulse Ox 08/20/22 08:23 99 08/20/22 07:51 97.9 F 95 H 16 144/84 99 08/20/22 02:49 87 20 08/20/22 00:00 98.2 F 97 H 18 162/81 97 08/19/22 20:00 98.6 F 88 20 196/99 94 L 08/19/22 18:58 93 L 08/19/22 15:43 97.7 F 83 18 158/77 92 L Pain Assessment - Last Documented Pain Intensity [Lower back] 10 Pain Intensity 8 Pain Scale Used 0-10 Pain Scale Intake and Output: Intake & Output 08/18/22 08/19/22 08/20/22 08/21/22 11:59 11:59 11:59 11:59 Intake Total 440 1270 680 120 Output Total 1200 3300 1950 Balance -760 -2030 -1270 120 Weight 70.1 kg Lab Results: Lab Results-Last 24 Hours 08/18/22 08/20/22 08/20/22 Range/Units 21:01 07:55 07:55 WBC 11.7 H (4.0-10.5) x10^3/uL RBC 4.91 (4.1-5.4) x10^6/uL Hgb 14.2 (12.0-16.0) g/dL Hct 43.5 (35-47) % MCV 88.6 (78-100) fL MCH 28.9 (26-32) pg MCHC 32.6 (32-36) g/dL RDW 14.3 H (11.5-14.0) % Plt Count 354 (150-450) x10^3/uL MPV 9.6 (7.5-11.0) fL Gran % 81.3 H (36.0-66.0) % Immature Gran % (Auto) 0.4 (0.00-0.4) % Nucleat RBC Rel Count 0.0 (0.00-0.1) % Eos # (Auto) 0.01 (0-0.5) x10^3/uL Immature Gran # (Auto) 0.05 H (0.00-0.03) x10^3u/L Absolute Lymphs (auto) 1.36 (1.0-4.6) x10^3/uL Absolute Monos (auto) 0.73 (0.0-1.3) x10^3/uL Absolute Nucleated RBC 0.00 (0.00-0.01) x10^3u/L Lymphocytes % 11.7 L (24.0-44.0) % Monocytes % 6.3 (0.0-12.0) % Eosinophils % 0.1 (0.00-5.0) % Basophils % 0.2 (0.0-0.4) % Absolute Granulocytes 9.49 H (1.4-6.9) x10^3/uL Basophils # 0.02 (0-0.4) x10^3/uL Sodium 121 L (137-145) mmol/L Potassium 2.9 L* (3.5-5.1) mmol/L Chloride 90 L (98-107) mmol/L Carbon Dioxide 24 (22-30) mmol/L Anion Gap 10.3 (5-15) MEQ/L BUN 12 (7-17) mg/dL Creatinine 0.32 L (0.52-1.04) mg/dL Estimated GFR > 60.0 ML/MIN Glucose 128 H (74-106) mg/dL Calcium 8.1 L (8.4-10.2) mg/dL Magnesium (1.6-2.3) mg/dL Total Bilirubin 1.10 (0.2-1.3) mg/dL AST 37 H (14-36) U/L ALT 37 H (0-35) U/L Alkaline Phosphatase 106 (38-126) U/L C-Reactive Prot, Quant 16 H (0-10) mg/L Serum Total Protein 7.2 (6.3-8.2) g/dL Albumin 3.9 (3.5-5.0) g/dL Aldolase Pending EDNA Titer Pending 08/20/22 08/20/22 Range/Units 08:16 12:45 WBC (4.0-10.5) x10^3/uL RBC (4.1-5.4) x10^6/uL Hgb (12.0-16.0) g/dL Hct (35-47) % MCV (78-100) fL MCH (26-32) pg MCHC (32-36) g/dL RDW (11.5-14.0) % Plt Count (150-450) x10^3/uL MPV (7.5-11.0) fL Gran % (36.0-66.0) % Immature Gran % (Auto) (0.00-0.4) % Nucleat RBC Rel Count (0.00-0.1) % Eos # (Auto) (0-0.5) x10^3/uL Immature Gran # (Auto) (0.00-0.03) x10^3u/L Absolute Lymphs (auto) (1.0-4.6) x10^3/uL Absolute Monos (auto) (0.0-1.3) x10^3/uL Absolute Nucleated RBC (0.00-0.01) x10^3u/L Lymphocytes % (24.0-44.0) % Monocytes % (0.0-12.0) % Eosinophils % (0.00-5.0) % Basophils % (0.0-0.4) % Absolute Granulocytes (1.4-6.9) x10^3/uL Basophils # (0-0.4) x10^3/uL Sodium (137-145) mmol/L Potassium 3.6 D (3.5-5.1) mmol/L Chloride (98-107) mmol/L Carbon Dioxide (22-30) mmol/L Anion Gap (5-15) MEQ/L BUN (7-17) mg/dL Creatinine (0.52-1.04) mg/dL Estimated GFR ML/MIN Glucose (74-106) mg/dL Calcium (8.4-10.2) mg/dL Magnesium 1.8 (1.6-2.3) mg/dL Total Bilirubin (0.2-1.3) mg/dL AST (14-36) U/L ALT (0-35) U/L Alkaline Phosphatase (38-126) U/L C-Reactive Prot, Quant (0-10) mg/L Serum Total Protein (6.3-8.2) g/dL Albumin (3.5-5.0) g/dL Aldolase EDNA Titer Radiology Exams: Radiology Procedures Category Date Time Status MRI C-SPINE W & WO CONTRAST [MRI] Routine Exams 08/22/22 07:00 Ordered MRI L-SPINE W & W/O CONTRAST [MRI] Routine Exams 08/22/22 07:00 Ordered Multi-Disciplinary Progress Notes: Multi-Disciplinary Progress Notes 08/19/22 14:25 Physical Therapy Note by Ricahrdson([id number]),Ryanne PT. WAS SEEN BY P.T. THIS AM. PT. LETHARGIC AND NOT ALERT TO HER LOCATION OR THE DATE OR DAY OF WEEK. FLAT AFFECT NOTED. DAUGHTER PRESENT DURING RX. PT. C/O LBP AND ABD PN AT 04/30. [employer], IV, WEEMS CATH IN PLACE. PT. HAS 2 L O2 PER NC BUT KEEPS REMOVING CANNULA. PT. IN BED UPON P.T. ARRIVAL TO ROOM. WANTED TO GET OUT OF BED. PERFORMED SUPINE TO SIT W/ MOD-MAX ASSIST X 2. REQUIRED MIN ASSIST TO SIT ON SIDE OF BED. PT. C/O DIZZINESS W/ POSITION CHANGE. REQUIRED MOD ASSIST X 1 RO SCOOT TO EDGE OF BED. PERFORMED SIT TO STAND W/ MOD-MAX ASSIST X 2 - PT. CONT. W/ SEVERE QUAD AND GLUT WEAKNESS IN WB W/ KNEE INSTABILITY. PERFORMED PIVOT TRANSFER TO BEDSIDE CHAIR W/ ARMREST REMOVED W/ MAX ASSIST X 2. DID NOTE IMPROVED BILATERAL UE COORDINATION AND AROM TODAY COMPARED TO YESTERDAY. PT. ABLE TO SCOOT HERSELF BACK IN CHAIR W/ MIN-MOD ASSIST. O2 SATS 93% ON RA. AWAITING RESULTS OF LUMBAR PUNCTURE. PLAN IS TO D/C TO SNF FOR REHAB WHEN STABLE. WILL CONT. P.T. 5X/WK UNTIL D/C TO PREP FOR REHAB STAY. Initialized on 08/19/22 14:25 - END OF NOTE Assessment/Plan (1) CVA (cerebral vascular accident) Current Visit: Yes Status: Acute Qualifiers: CVA mechanism: unspecified Qualified Code(s): I63.9 - Cerebral infarction, unspecified Assessment & Plan: Per teleneurology, they are suspecting a vascular accident of the spinal cord. I do think her speech is abnormal, and will certainly MRI brain if possible, but this could also be due to her extreme fatigue and baseline underlying cognitive impairment. Family does not want transfer out to another hospital; doesn't feel that care was good at outside hospital and doesn't want her to have any procedures etc. Daughter thinks this happened 3d ago (Mon) - she was walking with exaggerated steps, then the next morning her daughter called EMS. Code(s): I63.9 - CEREBRAL INFARCTION, UNSPECIFIED (2) Partial paralysis of both lower limbs Current Visit: Yes Status: Acute Code(s): G82.20 - PARAPLEGIA, UNSPECIFIED (3) delerium Current Visit: Yes Status: Acute (4) HTN (hypertension) Current Visit: Yes Status: Chronic Qualifiers: Hypertension type: primary hypertension Qualified Code(s): I10 - Essential (primary) hypertension Code(s): I10 - ESSENTIAL (PRIMARY) HYPERTENSION
[2022-08-20] MEDS: ENOXAPARIN SODIUM SQ SCH (21:16)
[2022-08-20] MEDS: Ativan 0.5 MG PO PRN (22:33)
[2022-08-21] MEDS: PERCOCET TABLET 5/325MG PO PRN ×5 (01:47→22:40)
[2022-08-21 07:07] LABS: Hematocrit 44.1 % (35-47); Mean Cell Volume 85.8 fL (78-100); Mean Corpuscular Hemoglobin 29.2 pg (26-32); Mean Platelet Volume 9.6 fL (7.5-11.0); Platelet Count 395 x10^3/uL (150-450); Red Blood Count 5.14 x10^6/uL (4.1-5.4); Red Cell Distribution Width 14.1 % (11.5-14.0); White Blood Count 13.9 x10^3/uL (4.0-10.5)
[2022-08-21 07:25] LABS: ANION GAP 10.5 MEQ/L (5-15); BLOOD UREA NITROGEN 15 mg/dL (7-17); CHLORIDE 91 mmol/L (98-107); Calcium 8.2 mg/dL (8.4-10.2); Carbon Dioxide 22 mmol/L (22-30); Creatinine 1 0.32 mg/dL (0.52-1.04); EST GLOMERULAR FILTRATION RATE > 60.0 ML/MIN; Glucose 122 mg/dL (74-106); Potassium 3.4 mmol/L (3.5-5.1)
[2022-08-21 07:31] LABS: SODIUM 120 mmol/L (137-145)
[2022-08-21 07:34] LABS: Risk Ratio 4.3
[2022-08-21 09:18] LABS: ALBUMIN 3.8 g/dL (3.5-5.0); ALKALINE PHOSPHATASE 115 U/L (38-126); Direct Bilirubin 0.5 mg/dL (0.0-0.4); SGOT/AST 34 U/L (14-36); SGPT/ALT 40 U/L (0-35)
[2022-08-21] MEDS: ECOTRIN 81 MG PO SCH (09:39)
[2022-08-21] MEDS: Lopressor 25MG Tab PO SCH ×2 (09:39→22:21)
[2022-08-21] MEDS: Cyclobenzaprine 10 MG PO SCH ×3 (09:40→22:20)
[2022-08-21] MEDS: Adalat CC 30 MG TABLET PO SCH (09:40)
[2022-08-21] MEDS: Pepcid 20 MG PO SCH ×2 (09:40→22:21)
--- NOTE | 2022-08-21 12:58 | PCM.NOTE ---
Date and Time: 08/21/22 1254 Subjective Assessment: Pt can give date of , but no other info. Does c/o some abd pain. corey small amt of po. - Review of Systems All Other Systems: Unable due to condition Objective Exam General Appearance: no apparent distress, other (somnolent, but wakes to voice) Skin Exam: warm, dry, No rash Eye Exam: eyes nml inspection Ears, Nose, Throat Exam: moist mucous membranes Neck Exam: normal inspection Respiratory Exam: normal breath sounds, lungs clear, No crackles/rales, No rhonchi, No wheezing Cardiovascular Exam: normal heart sounds, irregular, No murmur Gastrointestinal/Abdomen Exam: soft, normal bowel sounds, other (post surg wounds c/d/i), No tenderness, No distention, No mass, No guarding, No rebound Extremity Exam: No pedal edema, No swelling OBJECTIVE DATA Vital Signs: Vital Signs - 24 hr Temp Pulse Resp BP Pulse Ox 08/21/22 12:00 97.9 F 99 H 18 133/81 93 L 08/21/22 07:57 97.8 F 97 H 18 189/86 93 L 08/21/22 04:00 22 08/20/22 20:00 97.1 F 95 H 20 144/73 96 08/20/22 19:42 96 08/20/22 16:00 97.9 F 94 H 16 165/89 92 L Pain Assessment - Last Documented Pain Intensity [Lower back] 10 Pain Intensity 8 Pain Scale Used FLACC Intake and Output: Intake & Output 08/19/22 08/20/22 08/21/22 08/22/22 11:59 11:59 11:59 11:59 Intake Total 0465 777 1937 Output Total 4300 1950 1600 Balance -3039 -1270 -520 Lab Results: Lab Results-Last 24 Hours 08/20/22 08/20/22 08/20/22 Range/Units 12:45 12:45 16:15 WBC (4.0-10.5) x10^3/uL RBC (4.1-5.4) x10^6/uL Hgb (12.0-16.0) g/dL Hct (35-47) % MCV (78-100) fL MCH (26-32) pg MCHC (32-36) g/dL RDW (11.5-14.0) % Plt Count (150-450) x10^3/uL MPV (7.5-11.0) fL Sodium (137-145) mmol/L Potassium 3.6 D (3.5-5.1) mmol/L Chloride (98-107) mmol/L Carbon Dioxide (22-30) mmol/L Anion Gap (5-15) MEQ/L BUN (7-17) mg/dL Creatinine (0.52-1.04) mg/dL Estimated GFR ML/MIN Glucose (74-106) mg/dL Calcium (8.4-10.2) mg/dL Phosphorus 3.0 (2.5-4.5) mg/dL Total Bilirubin (0.2-1.3) mg/dL Direct Bilirubin (0.0-0.4) mg/dL AST (14-36) U/L ALT (0-35) U/L Alkaline Phosphatase (38-126) U/L Serum Total Protein (6.3-8.2) g/dL Albumin (3.5-5.0) g/dL Triglycerides (30-150) mg/dL Cholesterol (50-200) mg/dL LDL Cholesterol (30-100) mg/dL HDL Cholesterol (40-60) mg/dL Heart Disease Risk Ratio Urine Sodium 167 H (30-90) mmol/L 08/20/22 08/21/22 08/21/22 Range/Units 18:06 06:33 06:55 WBC 13.9 H (4.0-10.5) x10^3/uL RBC 5.14 (4.1-5.4) x10^6/uL Hgb 15.0 (12.0-16.0) g/dL Hct 44.1 (35-47) % MCV 85.8 (78-100) fL MCH 29.2 (26-32) pg MCHC 34.0 (32-36) g/dL RDW 14.1 H (11.5-14.0) % Plt Count 395 (150-450) x10^3/uL MPV 9.6 (7.5-11.0) fL Sodium 120 L* (137-145) mmol/L Potassium 3.5 3.4 L (3.5-5.1) mmol/L Chloride 91 L (98-107) mmol/L Carbon Dioxide 22 (22-30) mmol/L Anion Gap 10.5 (5-15) MEQ/L BUN 15 (7-17) mg/dL Creatinine 0.32 L (0.52-1.04) mg/dL Estimated GFR > 60.0 ML/MIN Glucose 122 H (74-106) mg/dL Calcium 8.2 L (8.4-10.2) mg/dL Phosphorus (2.5-4.5) mg/dL Total Bilirubin 1.00 (0.2-1.3) mg/dL Direct Bilirubin 0.5 H (0.0-0.4) mg/dL AST 34 (14-36) U/L ALT 40 H (0-35) U/L Alkaline Phosphatase 115 (38-126) U/L Serum Total Protein 7.0 (6.3-8.2) g/dL Albumin 3.8 (3.5-5.0) g/dL Triglycerides (30-150) mg/dL Cholesterol (50-200) mg/dL LDL Cholesterol (30-100) mg/dL HDL Cholesterol (40-60) mg/dL Heart Disease Risk Ratio Urine Sodium (30-90) mmol/L 08/21/22 Range/Units 06:55 WBC (4.0-10.5) x10^3/uL RBC (4.1-5.4) x10^6/uL Hgb (12.0-16.0) g/dL Hct (35-47) % MCV (78-100) fL MCH (26-32) pg MCHC (32-36) g/dL RDW (11.5-14.0) % Plt Count (150-450) x10^3/uL MPV (7.5-11.0) fL Sodium (137-145) mmol/L Potassium (3.5-5.1) mmol/L Chloride (98-107) mmol/L Carbon Dioxide (22-30) mmol/L Anion Gap (5-15) MEQ/L BUN (7-17) mg/dL Creatinine (0.52-1.04) mg/dL Estimated GFR ML/MIN Glucose (74-106) mg/dL Calcium (8.4-10.2) mg/dL Phosphorus (2.5-4.5) mg/dL Total Bilirubin (0.2-1.3) mg/dL Direct Bilirubin (0.0-0.4) mg/dL AST (14-36) U/L ALT (0-35) U/L Alkaline Phosphatase (38-126) U/L Serum Total Protein (6.3-8.2) g/dL Albumin (3.5-5.0) g/dL Triglycerides 238 H (30-150) mg/dL Cholesterol 203 H (50-200) mg/dL LDL Cholesterol 116 H (30-100) mg/dL HDL Cholesterol 47 (40-60) mg/dL Heart Disease Risk Ratio 4.3 Urine Sodium (30-90) mmol/L Radiology Exams: Radiology Procedures Category Date Time Status MRI C-SPINE W & WO CONTRAST [MRI] Routine Exams 08/21/22 09:32 Taken MRI L-SPINE W & W/O CONTRAST [MRI] Routine Exams 08/21/22 09:32 Taken MRI T-SPINE W & W/O CONTRAST [MRI] Routine Exams 08/21/22 09:45 Taken Assessment/Plan (1) CVA (cerebral vascular accident) Current Visit: Yes Status: Acute Qualifiers: CVA mechanism: unspecified Qualified Code(s): I63.9 - Cerebral infarction, unspecified Code(s): I63.9 - CEREBRAL INFARCTION, UNSPECIFIED (2) Partial paralysis of both lower limbs Current Visit: Yes Status: Acute Code(s): G82.20 - PARAPLEGIA, UNSPECIFIED (3) delerium Current Visit: Yes Status: Acute Assessment & Plan: will attempt to resolve hyponatremia as below. (4) Hyponatremia Current Visit: Yes Status: Acute Assessment & Plan: will check urine Na, and give hypertonic saline in the interim in the event it may contribute to her mental status. Code(s): E87.1 - HYPO-OSMOLALITY AND HYPONATREMIA (5) HTN (hypertension) Current Visit: Yes Status: Chronic Qualifiers: Hypertension type: primary hypertension Qualified Code(s): I10 - Essential (primary) hypertension Code(s): I10 - ESSENTIAL (PRIMARY) HYPERTENSION
[2022-08-21 14:23] LABS: BLOOD UREA NITROGEN 17 mg/dL (7-17); CHLORIDE 100 mmol/L (98-107); Calcium 7.8 mg/dL (8.4-10.2); Carbon Dioxide 22 mmol/L (22-30); Creatinine 1 0.35 mg/dL (0.52-1.04); EST GLOMERULAR FILTRATION RATE > 60.0 ML/MIN; Glucose 120 mg/dL (74-106); Potassium 3.4 mmol/L (3.5-5.1); SODIUM 126 mmol/L (137-145)
[2022-08-21] MEDS: TYLENOL 325 MG PO PRN (15:08)
[2022-08-21] MEDS: Ativan 0.5 MG PO PRN (17:45)
[2022-08-21] MEDS: Sodium Chloride 0.9% 1000 ML 1,000 ML IV SCH (17:51)
[2022-08-21] MEDS ORDERED: Dulcolax 10 MG SUPP PR PRN (18:17)
--- NOTE | 2022-08-21 19:15 | XRAY ---
Indication: Abdomen pain. Distended gallbladder with gallstone on recent CT abdomen/pelvis. Comparison: None KUB nonacute and nonobstructed with moderate scattered vascular calcifications. Solid organs unremarkable. Osseous structures intact with osteopenia and lower lumbar degenerative spondylosis. Comment: Preliminary interpretation made by [facility]. No critical discrepancy.
--- NOTE | 2022-08-21 19:27 | XRAY ---
Indication: Back pain. Leg weakness. Myelitis. Sagittal and axial MRI cervical spine performed using pre-and post T1 and T2-weighted sequences. 10 cc Dotarem contrast used. Comparison: None Several images/sequences are slightly degraded by motion artifact. Sagittal images demonstrates normal cervical alignment. Multilevel cervical thoracic degenerative disc desiccation signal with minimal C5-C7 disc space narrowing. Inferior endplates C5-C7 demonstrates mild concave deformity either remote fractures versus Schmorl nodes. Incidental 1.1 cm C2 and T1 vertebral hemangiomas. Otherwise no acute fracture, suspicious bony lesions, or abnormal bone marrow signal. Spinal cord is normal in course and caliber without signal abnormality. Normal appearing craniocervical junction. Axial images through C2-C4 disc levels are negative for disc herniation, spinal canal, or foraminal stenosis. At C4-C5 level, there is left foraminal stenosis due to uncovertebral spurring and left degenerative facet arthropathy. No central disc herniation or canal stenosis. At C5-C6 level, there is right foraminal stenosis due to uncovertebral spurring. No central disc herniation or canal stenosis. Remaining C6-T1 levels are unremarkable. Following gadolinium, there is no abnormal enhancing intra or extrathecal mass/lesion. No abnormal bony enhancement either. Impression: 1. Left C4-C5 and right C5-C6 foraminal stenosis due to degenerative changes as detailed. 2. Negative for disc herniation or spinal canal stenosis. 3. Incidental concave inferior endplates of C5-C7 either remote fractures versus Schmorl nodes. Also incidental C2/T1 vertebral hemangiomas. 4. Remaining MRI cervical spine with contrast exam is negative. Comment: Preliminary interpretation made by [facility]. No critical discrepancy.
--- NOTE | 2022-08-21 19:31 | XRAY ---
Indication: Back pain. Leg weakness. Myelitis. Sagittal and axial MRI thoracic spine performed using pre-and post T1 and T2-weighted sequences. 10 cc Dotarem contrast used. Comparison: None Sagittal images demonstrates normal alignment. Multilevel T1-T9 degenerative disc desiccation signal with little to no disc space loss. Superior endplate T7 demonstrates concave deformity either remote fracture versus Schmorl node. 1 cm inferior T8 vertebral meningioma. No acute fracture, suspicious bony lesions, or abnormal bone marrow signal. Spinal cord is normal in course and caliber without signal abnormality. Conus medullaris terminates thoracolumbar junction. Axial images are negative for disc herniation or spinal canal stenosis. Following gadolinium, there is no abnormal enhancing intra or extrathecal mass/lesion. No abnormal bony enhancement either. Impression: 1. Concave supra endplate T7 either remote fractures versus Schmorl nodes. Also incidental T8 vertebral hemangiomas. 4. Remaining MRI thoracic spine with contrast exam is negative. Comment: Preliminary interpretation made by [facility]. No critical discrepancy.
--- NOTE | 2022-08-21 19:37 | XRAY ---
Indication: Back pain. Leg weakness. Myelitis. Sagittal and axial MRI lumbar spine performed using pre-and post T1 and T2-weighted sequences. 10 cc Dotarem contrast used. Comparison: None Sagittal images demonstrates 4 lumbar segments in normal lumbar alignment with multilevel degenerative disc desiccation signal with little to no disc space narrowing. L2-L4 segments demonstrates concave endplates either remote fractures versus Schmorl nodes. Anterior inferior L4 demonstrates 7 mm vertebral hemangioma. No acute fracture, suspicious bony lesions, or abnormal bone marrow signal. Conus medullaris terminates thoracolumbar junction. Sagittal images through T12-L2 disc levels are unremarkable. Axial images at L2-L3 disc level is negative for disc herniation, spinal canal, or foraminal stenosis. Facets are symmetric. Remaining L3-L4-S1 levels demonstrates mild broad-based disc bulge minimally effacing thecal sac and producing bilateral foraminal narrowing/stenosis. More specifically left L4-S1 foraminal stenosis with slight impingement of the exiting left L4 nerve root. No central disc herniation or canal stenosis. Following gadolinium, there is no abnormal enhancing intra or extrathecal mass/lesion. No abnormal bony enhancement either. Impression: 1. 4 lumbar segments. 2. L3-S1 degenerative disc disease as detailed. Negative for disc herniation or spinal canal stenosis. 3. Incidental concave endplates of L2-L4 either remote fractures versus Schmorl nodes. Also incidental tiny L4 vertebral hemangioma. 4. Remaining MRI lumbar spine with contrast exam is negative. Comment: Preliminary interpretation made by [facility]. No critical discrepancy.
[2022-08-21] MEDS: ENOXAPARIN SODIUM SQ SCH (22:20)
[2022-08-21] MEDS: SENOKOT 8.6 MG PO SCH (22:21)
[2022-08-22] MEDS: Sodium Chloride 0.9% 1000 ML 1,000 ML IV SCH ×2 (04:06→16:54)
[2022-08-22 06:54] LABS: Absolute Neutrophil Ct (ANC) 13.78 x10^3/uL (1.4-6.9); BASOPHIL % 0.2 % (0.0-0.4); Basophil (Absolute #) 0.04 x10^3/uL (0-0.4); Eosinophil (Absolute #) 0 x10^3/uL (0-0.5); Hematocrit 39.3 % (35-47); Hemoglobin 13.5 g/dL (12.0-16.0); IMMATURE GRAN # 0.09 x10^3u/L (0.00-0.03); IMMATURE GRAN % 0.5 % (0.00-0.4); Lymphocyte (Absolute #) 1.31 x10^3/uL (1.0-4.6); Lymphocytes % 7.8 % (24.0-44.0); Mean Cell Volume 86.2 fL (78-100); Mean Corpuscular Hemoglobin 29.6 pg (26-32); Mean Corpuscular Hgb Concent. 34.4 g/dL (32-36); Mean Platelet Volume 9.4 fL (7.5-11.0); Monocyte (Absolute #) 1.55 x10^3/uL (0.0-1.3); Monocytes % 9.2 % (0.0-12.0); Neutrophil % 82.3 % (36.0-66.0); Platelet Count 366 x10^3/uL (150-450); Red Blood Count 4.56 x10^6/uL (4.1-5.4); Red Cell Distribution Width 14.8 % (11.5-14.0); White Blood Count 16.8 x10^3/uL (4.0-10.5)
[2022-08-22 07:09] LABS: ALBUMIN 3.2 g/dL (3.5-5.0); ALKALINE PHOSPHATASE 94 U/L (38-126); ANION GAP 9.8 MEQ/L (5-15); BLOOD UREA NITROGEN 14 mg/dL (7-17); CHLORIDE 102 mmol/L (98-107); Carbon Dioxide 21 mmol/L (22-30); Creatinine 1 0.27 mg/dL (0.52-1.04); EST GLOMERULAR FILTRATION RATE > 60.0 ML/MIN; Glucose 125 mg/dL (74-106); SGOT/AST 23 U/L (14-36); SGPT/ALT 30 U/L (0-35); SODIUM 129 mmol/L (137-145); Total Protein 5.8 g/dL (6.3-8.2)
[2022-08-22 07:18] LABS: Potassium 2.9 mmol/L (3.5-5.1)
--- NOTE | 2022-08-22 08:39 | XRAY ---
Indication: Leukocytosis. Comparison: August 13, 2022 Portable chest less inflated with new left base subsegmental atelectasis. Right base demonstrates new subtle infiltrate versus atelectasis with small effusion. Remaining heart and lungs unremarkable.
[2022-08-22] MEDS: POTASSIUM CHLORIDE 20 mEq IN WATER 100ML 20 MEQ/100 ML BAG IV SCH ×2 (09:36→11:53)
[2022-08-22] MEDS: Adalat CC 30 MG TABLET PO SCH (10:05)
[2022-08-22] MEDS: SENOKOT 8.6 MG PO SCH ×2 (10:05→21:27)
[2022-08-22] MEDS: ECOTRIN 81 MG PO SCH (10:05)
[2022-08-22] MEDS: Lopressor 25MG Tab PO SCH ×2 (10:05→21:28)
[2022-08-22] MEDS: Pepcid 20 MG PO SCH ×2 (10:08→21:29)
[2022-08-22] MEDS: Cyclobenzaprine 10 MG PO SCH ×3 (10:08→21:27)
[2022-08-22] MEDS: PERCOCET TABLET 5/325MG PO PRN (14:52)
--- NOTE | 2022-08-22 15:29 | PCM.NOTE ---
Date and Time: 08/22/22 1528 Subjective Assessment: Patient continues with inability to move her legs or bear weight. 4 person assist to get patient on the toilet. large BM today. Is not tolerating Ativan per daughter. C/O mid back pain today and is sitting up in bed to help the pain. ,Percocet helps per daughter ,states patient sleeps after dosing but does not wake confused as she does with Ativan. MRI C-D-L spine completed reviewed with Dr Wolf Radiologist ,no evidence of spinal stroke as anticipated by Teleneurologist. Discussed transfer for higher level of care,EMG recommended but not available at [facility]. Patient is eating if encouraged. Objective Exam General Appearance: mild distress (c/o mid back pain,due for Percocet.) Neurologic Exam: alert ( to person and place), motor deficits (bilat LE nDTR not able to elicit), confusion, No slurred speech, No dysarthria Skin Exam: normal color, warm, dry Eye Exam: eyes nml inspection Ears, Nose, Throat Exam: normal ENT inspection Neck Exam: supple, midline tenderness Respiratory Exam: crackles/rales (fine bibasilar otherwise clear), No rhonchi, No wheezing Cardiovascular Exam: regular rate/rhythm Gastrointestinal/Abdomen Exam: soft, No tenderness Extremity Exam: paralysis (able to move toes and can lift right heel off the bed,unable to raise legs unable to bear weight), pedal edema (ankle and pedal edema trace) OBJECTIVE DATA Vital Signs: Vital Signs - 24 hr Temp Pulse Resp BP Pulse Ox 08/22/22 12:00 97.9 F 107 H 16 130/71 95 08/22/22 07:35 98.2 F 110 H 16 137/78 89 L 08/22/22 07:27 94 L 08/22/22 04:00 98.3 F 109 H 28 H 144/74 93 L 08/21/22 20:33 97.5 F 99 H 48 H 136/71 95 08/21/22 19:30 95 08/21/22 17:04 97.5 F 94 H 18 131/78 91 L 08/21/22 16:00 97.9 F 94 H 18 161/80 93 L Pain Assessment - Last Documented Pain Intensity [Lower back] 10 Pain Intensity 8 Pain Scale Used 0-10 Pain Scale Intake and Output: Intake & Output 08/20/22 08/21/22 08/22/22 08/23/22 11:59 11:59 11:59 11:59 Intake Total 680 2547 0780 240 Output Total 8656 4220 800 Balance -1270 -520 1473 240 Lab Results: Lab Results-Last 24 Hours 08/22/22 08/22/22 Range/Units 06:50 06:50 WBC 16.8 H (4.0-10.5) x10^3/uL RBC 4.56 (4.1-5.4) x10^6/uL Hgb 13.5 (12.0-16.0) g/dL Hct 39.3 (35-47) % MCV 86.2 (78-100) fL MCH 29.6 (26-32) pg MCHC 34.4 (32-36) g/dL RDW 14.8 H (11.5-14.0) % Plt Count 366 (150-450) x10^3/uL MPV 9.4 (7.5-11.0) fL Gran % 82.3 H (36.0-66.0) % Immature Gran % (Auto) 0.5 H (0.00-0.4) % Nucleat RBC Rel Count 0.0 (0.00-0.1) % Eos # (Auto) 0 (0-0.5) x10^3/uL Immature Gran # (Auto) 0.09 H (0.00-0.03) x10^3u/L Absolute Lymphs (auto) 1.31 (1.0-4.6) x10^3/uL Absolute Monos (auto) 1.55 H (0.0-1.3) x10^3/uL Absolute Nucleated RBC 0.00 (0.00-0.01) x10^3u/L Lymphocytes % 7.8 L (24.0-44.0) % Monocytes % 9.2 (0.0-12.0) % Eosinophils % 0.0 (0.00-5.0) % Basophils % 0.2 (0.0-0.4) % Absolute Granulocytes 13.78 H (1.4-6.9) x10^3/uL Basophils # 0.04 (0-0.4) x10^3/uL Sodium 129 L (137-145) mmol/L Potassium 2.9 L* (3.5-5.1) mmol/L Chloride 102 (98-107) mmol/L Carbon Dioxide 21 L (22-30) mmol/L Anion Gap 9.8 (5-15) MEQ/L BUN 14 (7-17) mg/dL Creatinine 0.27 L (0.52-1.04) mg/dL Estimated GFR > 60.0 ML/MIN Glucose 125 H (74-106) mg/dL Calcium 8.0 L (8.4-10.2) mg/dL Total Bilirubin 0.90 (0.2-1.3) mg/dL AST 23 (14-36) U/L ALT 30 (0-35) U/L Alkaline Phosphatase 94 (38-126) U/L Serum Total Protein 5.8 L (6.3-8.2) g/dL Albumin 3.2 L (3.5-5.0) g/dL Radiology Exams: Radiology Procedures Category Date Time Status CHEST 1 VIEW (PORTABLE) Routine Exams 08/22/22 07:02 Completed KUB Routine Exams 08/21/22 12:54 Completed MRI C-SPINE W & WO CONTRAST [MRI] Routine Exams 08/21/22 09:32 Completed MRI L-SPINE W & W/O CONTRAST [MRI] Routine Exams 08/21/22 09:32 Completed MRI T-SPINE W & W/O CONTRAST [MRI] Routine Exams 08/21/22 09:45 Completed Multi-Disciplinary Progress Notes: Multi-Disciplinary Progress Notes 08/22/22 14:09 Case Management Note by Brynn Hunter S/W FAMILY- THEY PLAN FOR PATIENT TO CONTINUE TO [facility] FOR REHAB WHEN MEDICALLY DCD Initialized on 08/22/22 14:09 - END OF NOTE 08/22/22 13:53 Physical Therapy Note by Richardson(L#[id number]),Ryanne PT. WAS SEEN BY PGertrudis THIS A.M. REPORTS R SHOULDER AND ABD PN AT 12/28. PT. IS ALERT BUT HAS DIFFICULTY FOLLOWING CONVERSATION. PT. ALSOMAKES STATEMENTS INDICATING SHE DOES NOT COMPREHEND HER CURRENT LIMITATIONS, E.G. ASKED IF SHE COULD WALK IN TO THE BATHROOM. EXPLAINED TO PT. THAT SHE IS TOO WEAK TO WALK AND TRANSFER ON TO TOILET AT THIS TIME. PT. PERFORMED SUPINE TO SIT W/ MOD-MAX ASSIST X 2. PT. REQUIRED MIN-MOD ASSIST TO MAINTAIN SITTING ON BALANCE ON SIDE OF BED TODAY. HAD TO BE FREQUENTLY REMINDED TO USE UES FOR SUPPORT AND REACH FOR HANDRAIL. PT. EXHIBITS GOOD AROM BILATERAL SHOULDERS TODAY. L LE WEAKNESS > R. NOT ABLE TO PERFORM HEEL SLIDE IN BED L LE. TRANSFERRED PT. TO BEDSIDE CHAIR W/ MAX ASSIST X 2 TO PIVOT TO CHAIR W/ ARM REST REMOVED TO INCREASE EASE OF TRANSFER. PT. THEN STATED SHE NEEDED TO SIT ON COMMODE. TRANSFERRED PT. TO BEDSIDE COMMODE W/ MAX ASSIST X 3. PT. REQUIRED ASSIST TO MAINTAIN TRUNK POSITION ON COMMODE FOR B.M. PT. THEN TRANSFERRED BACK TO CHAIR W/ EVERT SLING UNDER HER W/ MAX ASSIST X 3. PT'S LES BUCKLE AT THE KNEES W/ WB. HAVE ATTEMPTED TO USE RW FOR INCREASED UE AND TRUNK SUPPORT BUT PT. HAS DIFFICULTY MAINTAINING GRASP ON WALKER W/ EITHER UE. WILL CONT. P.T. 5X/WK TOLERATED TO ADDRESS WEAKNESS AND FUNCTIONAL DEFICITS. RX TIME - [id number] Initialized on 08/22/22 13:53 - END OF NOTE Assessment/Plan (1) Partial paralysis of both lower limbs Current Visit: Yes Status: Acute Code(s): G82.20 - PARAPLEGIA, UNSPECIFIED (2) Intractable back pain Current Visit: Yes Status: Acute Assessment & Plan: improved. Is off Morphine and taking Percocet. Code(s): M54.9 - DORSALGIA, UNSPECIFIED (3) Hyponatremia Current Visit: Yes Status: Acute Assessment & Plan: Urine osmol is elevated. Patient is on NS since admission 08/17/22 Code(s): E87.1 - HYPO-OSMOLALITY AND HYPONATREMIA (4) HTN (hypertension) Current Visit: Yes Status: Chronic Qualifiers: Hypertension type: primary hypertension Qualified Code(s): I10 - Essential (primary) hypertension Code(s): I10 - ESSENTIAL (PRIMARY) HYPERTENSION (5) Leukocytosis Current Visit: Yes Status: Acute Assessment & Plan: CXR and UA Code(s): D72.829 - ELEVATED WHITE BLOOD CELL COUNT, UNSPECIFIED
[2022-08-22] MEDS ORDERED: Klor Con PO ONE ×3 (19:49→23:57)
[2022-08-22] MEDS: ENOXAPARIN SODIUM SQ SCH (21:28)
[2022-08-22] MEDS: TYLENOL 325 MG PO PRN (21:32)
[2022-08-22] MEDS ORDERED: xanAX 0.25 MG PO SCH (21:45)
[2022-08-22] MEDS ORDERED: Lidoderm Patch 5% TOP SCH (22:00)
[2022-08-22 22:04] LABS: Antinuclear Antiboides, IFA Negative (.)
[2022-08-23] MEDS: Klor Con PO SCH ×4 (00:08→06:32)
[2022-08-23 01:36] LABS: Hematocrit 39.4 % (35-47); Hemoglobin 13.2 g/dL (12.0-16.0); Mean Cell Volume 87.9 fL (78-100); Mean Corpuscular Hemoglobin 29.5 pg (26-32); Mean Corpuscular Hgb Concent. 33.5 g/dL (32-36); Mean Platelet Volume 9.4 fL (7.5-11.0); Platelet Count 346 x10^3/uL (150-450); Red Blood Count 4.48 x10^6/uL (4.1-5.4); Red Cell Distribution Width 14.9 % (11.5-14.0); White Blood Count 12.4 x10^3/uL (4.0-10.5)
[2022-08-23 01:50] LABS: ANION GAP 9.1 MEQ/L (5-15); BLOOD UREA NITROGEN 10 mg/dL (7-17); CHLORIDE 100 mmol/L (98-107); Calcium 7.8 mg/dL (8.4-10.2); Carbon Dioxide 21 mmol/L (22-30); Creatinine 1 0.23 mg/dL (0.52-1.04); EST GLOMERULAR FILTRATION RATE > 60.0 ML/MIN; Glucose 112 mg/dL (74-106); Potassium 3.4 mmol/L (3.5-5.1); SODIUM 127 mmol/L (137-145)
[2022-08-23] MEDS ORDERED: Klor Con PO ONE ×4 (02:07→06:38)
[2022-08-23] MEDS: Sodium Chloride 0.9% 1000 ML 1,000 ML IV SCH ×2 (02:24→13:52)
[2022-08-23] MEDS ORDERED: xanAX 0.25 MG PO PRN (07:15)
[2022-08-23 08:22] LABS: ANION GAP 11.5 MEQ/L (5-15); BLOOD UREA NITROGEN 9 mg/dL (7-17); CHLORIDE 100 mmol/L (98-107); Calcium 7.7 mg/dL (8.4-10.2); Carbon Dioxide 19 mmol/L (22-30); Creatinine 1 0.25 mg/dL (0.52-1.04); EST GLOMERULAR FILTRATION RATE > 60.0 ML/MIN; Glucose 119 mg/dL (74-106); SODIUM 126 mmol/L (137-145)
[2022-08-23] MEDS: ECOTRIN 81 MG PO SCH (09:26)
[2022-08-23] MEDS: SENOKOT 8.6 MG PO SCH ×2 (09:26→21:47)
[2022-08-23] MEDS: Pepcid 20 MG PO SCH ×2 (09:26→22:04)
[2022-08-23] MEDS: Lopressor 25MG Tab PO SCH ×2 (09:26→22:04)
[2022-08-23] MEDS: Adalat CC 30 MG TABLET PO SCH (09:26)
[2022-08-23] MEDS: TYLENOL 325 MG PO PRN ×2 (14:28→22:08)
[2022-08-23] MEDS ORDERED: MERREM IV ONE (21:41)
[2022-08-23] MEDS ORDERED: Sodium Chloride 100ML MINI-BAG PLUS 100 ML IV ONE (21:44)
[2022-08-23] MEDS: ENOXAPARIN SODIUM SQ SCH (22:03)
[2022-08-23] MEDS: Lidoderm Patch 5% TOP SCH (22:04)
[2022-08-23] MEDS: MERREM 500 MG in Sodium Chloride 100ML MINI-BAG PLUS 100 ML IV SCH (22:05)
[2022-08-23 22:10] LABS: Osmolality, Urine 540 mOsmol/kg (.)
[2022-08-24] MEDS: Sodium Chloride 0.9% 1000 ML 1,000 ML IV SCH (00:49)
[2022-08-24] MEDS: TYLENOL 325 MG PO PRN ×4 (03:03→21:10)
[2022-08-24 05:46] LABS: Hematocrit 40.8 % (35-47); Hemoglobin 13.6 g/dL (12.0-16.0); Mean Corpuscular Hgb Concent. 33.3 g/dL (32-36); Platelet Count 402 x10^3/uL (150-450); Red Blood Count 4.69 x10^6/uL (4.1-5.4); White Blood Count 12.1 x10^3/uL (4.0-10.5)
[2022-08-24] MEDS ORDERED: MERREM IV ONE (06:07)
[2022-08-24] MEDS ORDERED: Sodium Chloride 100ML MINI-BAG PLUS 100 ML IV ONE (06:07)
[2022-08-24] MEDS: MERREM 500 MG in Sodium Chloride 100ML MINI-BAG PLUS 100 ML IV SCH ×3 (06:08→21:07)
[2022-08-24 06:33] LABS: ANION GAP 11.2 MEQ/L (5-15); BLOOD UREA NITROGEN 9 mg/dL (7-17); CHLORIDE 96 mmol/L (98-107); Calcium 7.6 mg/dL (8.4-10.2); Carbon Dioxide 20 mmol/L (22-30); Creatinine 1 0.28 mg/dL (0.52-1.04); EST GLOMERULAR FILTRATION RATE > 60.0 ML/MIN; Glucose 110 mg/dL (74-106); Potassium 3.3 mmol/L (3.5-5.1); SODIUM 124 mmol/L (137-145)
--- NOTE | 2022-08-24 08:31 | PCM.NOTE ---
Date and Time: 08/23/22 1200 Subjective Assessment: Patient has increased weakness now in her trunk and BUE.She was started on treatment for pneumonia.Has Hx anaphylactic rxn to PCN so I started Merrem. Dr Gaffney ,Gen surgery evaluated ptn today because patients leg pain and inability to walk started 2-3 days post op cholecystectomy and he sees no correlation. Hyponatremia will need addressed by Nephrology as it remains a problem after IV NS since admission. Patient has DDD and I plan to discuss the possibility that this has caused the BLE weakness with Neurosurgery since MRI of brain and spine were neg for acute changes.Patient remains wait listed for transfer to [facility] for higher level of care. Objective Exam General Appearance: lethargy Neurologic Exam: other (alert when awakened knows her daughter and says her name) Respiratory Exam: crackles/rales (right base), other (no dyspnea,is on O2- 2L), No wheezing Cardiovascular Exam: regular rate/rhythm Gastrointestinal/Abdomen Exam: No tenderness OBJECTIVE DATA Vital Signs: Vital Signs - 24 hr Temp Pulse Resp BP Pulse Ox 08/24/22 07:41 97.3 F 100 H 18 139/85 92 L 08/24/22 04:00 97.8 F 97 H 20 149/80 98 08/23/22 23:52 98.0 F 80 19 130/67 98 08/23/22 20:00 97.3 F 102 H 22 146/69 98 08/23/22 19:12 92 L 08/23/22 19:05 89 L 08/23/22 18:58 88 L 08/23/22 17:51 94 L 08/23/22 16:00 98.6 F 94 H 16 145/91 94 L 08/23/22 12:00 98.2 F 99 H 16 134/81 93 L Pain Assessment - Last Documented Pain Intensity [Lower back] 10 Pain Intensity 3 Pain Scale Used 0-10 Pain Scale Intake and Output: Intake & Output 08/21/22 08/22/22 08/23/22 08/24/22 11:59 11:59 11:59 11:59 Intake Total 1080 2756 320 1653 Output Total 1600 383 187 7505 Balance -520 7912 -604 -4720 Weight 70.1 kg Lab Results: Lab Results-Last 24 Hours 08/18/22 08/20/22 08/23/22 Range/Units 21:01 00:00 08:00 WBC (4.0-10.5) x10^3/uL RBC (4.1-5.4) x10^6/uL Hgb (12.0-16.0) g/dL Hct (35-47) % MCV (78-100) fL MCH (26-32) pg MCHC (32-36) g/dL RDW (11.5-14.0) % Plt Count (150-450) x10^3/uL MPV (7.5-11.0) fL Sodium 126 L (137-145) mmol/L Potassium 4.0 (3.5-5.1) mmol/L Chloride 100 (98-107) mmol/L Carbon Dioxide 19 L (22-30) mmol/L Anion Gap 11.5 (5-15) MEQ/L BUN 9 (7-17) mg/dL Creatinine 0.25 L (0.52-1.04) mg/dL Estimated GFR > 60.0 ML/MIN Glucose 119 H (74-106) mg/dL Serum Osmolality 253 L (280-301) mOsmol/kg Lactic Acid (0.4-2.0) Calcium 7.7 L (8.4-10.2) mg/dL Aldolase 6.0 (3.3-10.3) U/L Urine Osmolality 540 (.) mOsmol/kg 08/23/22 08/24/22 08/24/22 Range/Units 20:18 05:11 05:11 WBC 12.1 H (4.0-10.5) x10^3/uL RBC 4.69 (4.1-5.4) x10^6/uL Hgb 13.6 (12.0-16.0) g/dL Hct 40.8 (35-47) % MCV 87.0 (78-100) fL MCH 29.0 (26-32) pg MCHC 33.3 (32-36) g/dL RDW 15.0 H (11.5-14.0) % Plt Count 402 (150-450) x10^3/uL MPV 10.0 (7.5-11.0) fL Sodium 124 L (137-145) mmol/L Potassium 3.3 L (3.5-5.1) mmol/L Chloride 96 L (98-107) mmol/L Carbon Dioxide 20 L (22-30) mmol/L Anion Gap 11.2 (5-15) MEQ/L BUN 9 (7-17) mg/dL Creatinine 0.28 L (0.52-1.04) mg/dL Estimated GFR > 60.0 ML/MIN Glucose 110 H (74-106) mg/dL Serum Osmolality (280-301) mOsmol/kg Lactic Acid 0.7 (0.4-2.0) Calcium 7.6 L (8.4-10.2) mg/dL Aldolase (3.3-10.3) U/L Urine Osmolality (.) mOsmol/kg Multi-Disciplinary Progress Notes: Multi-Disciplinary Progress Notes 08/23/22 17:55 Physical Therapy Note by Rihcardson(Hayley#[id number])Ryanne PT. WAS SEEN BY PT THIS P.M. DAUGHTER PRESENT FOR RX. PT. N BED W/ LIGHT OUT UPON P.T. ARRIVAL TO ROOM. PT. LETHARGIC BUT OPENS EYES WHEN NAME IS CALLED. PT. C/O LOWER ABD PN AND BACK PN. IV AND WEEMS CATH IN PLACE. ATTEMPTED LE BED EX'S OF ANKLE PUMPS, QUAD SETS, AND HEEL SLIDES. PT. REQUIRES MAX V.C. AND TACTILE STIMULATION TO ACTIVELY MOVE LES. BILATERAL UE AND LE TONE IS FLACCID IN NATURE. L APPEARS WEAKER THAN R. BILATERAL UE COORDINATION AND WEAKNESS NOTED WELL. PERFORMED SUPINE TO SIT - W/ MAX ASSIST X 2; PT. NOT ABLE TO MAINTAIN STATIC SITTING FOR > 1-2" ON SIDE OF BED WITHOUT MOD-MAX ASSIST X 1. PERFORMED PIVOT TRANSFER TO CHAIR W/ MAX ASSIST X 2 W/ MIN-NO ACTIVE PARTICIPATION OF PT. FOR LE WB OR USING UES. EVERT SLING WAS PLACED UNDER PT. PRIOR TO TRANSFER WILL LIKELY BE NEEDED [place] [facility] [place] TO TRANSFER PT. BACK TO BED. PT. REQUIRED MAX ASSIST X 2-3 TO SCOOT BACK IN CHAIR. PT. VERY LETHARGIC EVEN AFTER TRANSFER. FEEL WEAKNESS AND OVERALL CONDITION IS WORSENING. STILL AWAITING TRANSFER TO [facility] FOR NEURO CONSULT. WILL CONT. P.T. 5X/WK UNTIL D/C TO ADDRESS SIGNIFICANT FUNCTIONAL DEFICITS. Initialized on 08/23/22 17:55 - END OF NOTE 08/23/22 13:26 Case Management Note by Brynn Hunter PATIENT STILL AWAITING BED AT [facility]. OTHERWISE PLAN IS TO DC TO [facility] FOR REHAB AT TIME OF DC Initialized on 08/23/22 13:26 - END OF NOTE Assessment/Plan (1) Pneumonia Current Visit: Yes Status: Acute Qualifiers: Aspiration pneumonia type: unspecified Laterality: right Lung location: lower lobe of lung Code(s): J18.9 - PNEUMONIA, UNSPECIFIED ORGANISM (2) Partial paralysis of both lower limbs Current Visit: Yes Status: Acute Code(s): G82.20 - PARAPLEGIA, UNSPECIFIED (3) Intractable back pain Current Visit: Yes Status: Resolved Assessment & Plan: improved,now on Percocet prn Code(s): M54.9 - DORSALGIA, UNSPECIFIED (4) Hyponatremia Current Visit: Yes Status: Acute Assessment & Plan: will need Nephrology consult,possible contributing to parethesias/weakness? Code(s): E87.1 - HYPO-OSMOLALITY AND HYPONATREMIA (5) HTN (hypertension) Current Visit: Yes Status: Chronic Qualifiers: Hypertension type: primary hypertension Qualified Code(s): I10 - Essential (primary) hypertension Code(s): I10 - ESSENTIAL (PRIMARY) HYPERTENSION
[2022-08-24] MEDS: Adalat CC 30 MG TABLET PO SCH (09:08)
[2022-08-24] MEDS: ECOTRIN 81 MG PO SCH (09:08)
[2022-08-24] MEDS: Lopressor 25MG Tab PO SCH ×2 (09:09→21:07)
[2022-08-24] MEDS: Pepcid 20 MG PO SCH ×2 (09:09→21:07)
[2022-08-24] MEDS: SENOKOT 8.6 MG PO SCH ×2 (09:09→21:08)
[2022-08-24] MEDS ORDERED: Klor Con PO ONE ×2 (10:17→12:00)
[2022-08-24 11:03] LABS: Bacteria RARE /HPF (NEGATIVE); Mucus SLIGHT /HPF (NEGATIVE)
[2022-08-24 11:07] LABS: Appearance CLEAR (CLEAR); Bilirubin NEGATIVE (NEGATIVE); Dipstick done @ ? MAIN LAB; Glucose NEGATIVE (NEGATIVE); Ketones >=160 (NEGATIVE); Nitrite NEGATIVE (NEGATIVE); Protein,Urine Dip NEGATIVE (Negative); RBC SMALL Ery/ul (0-5); Urobilinogen 0.2 mg/dL (0-1)
[2022-08-24 11:08] LABS: Urine Cultured Indicated? NO
[2022-08-24] MEDS ORDERED: Klor Con PO SCH ×3 (12:00→19:00)
[2022-08-24 14:28] LABS: ANION GAP 10.1 MEQ/L (5-15); BLOOD UREA NITROGEN 9 mg/dL (7-17); CHLORIDE 95 mmol/L (98-107); Carbon Dioxide 22 mmol/L (22-30); EST GLOMERULAR FILTRATION RATE > 60.0 ML/MIN; Glucose 108 mg/dL (74-106); Potassium 3.8 mmol/L (3.5-5.1); SODIUM 123 mmol/L (137-145)
[2022-08-24] MEDS ORDERED: TOLVAPTAN PO ONE ×2 (17:00→19:00)
[2022-08-24] MEDS ORDERED: ATARAX 25 MG PO PRN (18:08)
[2022-08-24] MEDS: Lidoderm Patch 5% TOP SCH (18:44)
[2022-08-24] MEDS: ENOXAPARIN SODIUM SQ SCH (21:07)
[2022-08-25] MEDS: TYLENOL 325 MG PO PRN ×3 (01:11→15:53)
[2022-08-25 05:58] LABS: Hematocrit 45.1 % (35-47); Hemoglobin 14.5 g/dL (12.0-16.0); Mean Cell Volume 90.4 fL (78-100); Mean Corpuscular Hemoglobin 29.1 pg (26-32); Mean Corpuscular Hgb Concent. 32.2 g/dL (32-36); Mean Platelet Volume 9.6 fL (7.5-11.0); Platelet Count 378 x10^3/uL (150-450); Red Blood Count 4.99 x10^6/uL (4.1-5.4); Red Cell Distribution Width 15.3 % (11.5-14.0); White Blood Count 19.4 x10^3/uL (4.0-10.5)
[2022-08-25 06:13] LABS: ALBUMIN 3.3 g/dL (3.5-5.0); ALKALINE PHOSPHATASE 96 U/L (38-126); ANION GAP 10.1 MEQ/L (5-15); BLOOD UREA NITROGEN 10 mg/dL (7-17); CHLORIDE 100 mmol/L (98-107); Calcium 8.4 mg/dL (8.4-10.2); Carbon Dioxide 22 mmol/L (22-30); Creatinine 1 0.35 mg/dL (0.52-1.04); EST GLOMERULAR FILTRATION RATE > 60.0 ML/MIN; Glucose 112 mg/dL (74-106); MAGNESIUM 2.2 mg/dL (1.6-2.3); Potassium 3.9 mmol/L (3.5-5.1); SGOT/AST 21 U/L (14-36); SGPT/ALT 26 U/L (0-35); SODIUM 128 mmol/L (137-145); Total Protein 6.3 g/dL (6.3-8.2)
[2022-08-25] MEDS: MERREM 500 MG in Sodium Chloride 100ML MINI-BAG PLUS 100 ML IV SCH ×3 (06:22→22:40)
[2022-08-25] MEDS ORDERED: ATARAX 25 MG PO PRN (07:15)
--- NOTE | 2022-08-25 08:35 | CONS ---
CONSULT DATE: 08/24/2022 REASON FOR CONSULT: Hypernatremia. HISTORY: The patient is a 77-year-old lady who apparently was at [facility] recently. She underwent cholecystectomy a few days ago. She got discharged from there but apparently presented to [facility] on 08/17/2022 with intractable back pain which was severe in lower and upper back. Apparently she had evaluation including MRI lumbar spine and CT which was negative. She did have history of fall at home the night prior to presentation. She was admitted for further management. Her sodium on admission was 129. It had dropped down to 121 yesterday and today it is 123 so nephrology service was consulted. The patient complains of generalized leg weakness, complains of some swelling. Denies any vomiting or diarrhea. Complains of poor appetite. REVIEW OF SYSTEMS: No fever. No chest pain. Some mild shortness of breath. She has some hearing loss, leg weakness bilaterally, some swelling in the arms and legs. No active vomiting or diarrhea. Some generalized weakness, poor appetite. All other systems were reviewed and negative except as stated above. PAST MEDICAL HISTORY: Hypertension, coronary artery disease, myocardial infarction, CVA, chronic obstructive pulmonary disease, osteoarthritis, arthritis, degenerative joint disease. PAST SURGICAL HISTORY: Hysterectomy. Mastectomy. MEDICATIONS: Home medications and medicines in the hospital were reviewed per the medication sheet. ALLERGIES: PENICILLIN. SOCIAL HISTORY: She has a past history of smoking. No active smoking. Denies any alcohol or illicit substance abuse. FAMILY HISTORY: Denies any history of sodium or kidney problems in the family. PHYSICAL EXAMINATION: The patient is alert, oriented, not in any acute distress. Vital signs reviewed at bedside in the hospital. HEENT: Head normocephalic. Eyes nonicteric. No pallor. ENT mucosa moist. NECK: No JVD. Trachea midline. CHEST: Bilateral clear to auscultation. No rales. No respiratory distress. CVS: Appears regular. EXTREMITIES: 1 to 2+ peripheral edema bilateral. No cyanosis. ABDOMEN: Soft, nontender, positive bowel sounds. No palpable edema. NEUROLOGIC: Awake, alert, oriented x3. Following commands and answering all questions appropriately. She had some bilateral leg weakness, unable to move legs. Strength of legs is 0 to 1. Arms seem to be 5/5. PSYCHIATRIC: Appropriate mood and affect. SKIN: Warm and dry. LAB DATA AND TESTS: Labs initially on admission hemoglobin 15.1, white blood cell count 9.0, sodium 129, potassium 3.2, BUN 17, creatinine 0.5. Sodium today is 123, potassium 3.8, creatinine 0.3. UA showed specific gravity 1.020. NT ProBNP 564. Hemoglobin 13.6, white blood cell count 12.1. X-rays showed left segmental atelectasis. MRI cervical spine showed left C4-C5 and right C5-C6 foraminal stenosis due to degenerative changes, negative disc herniation. MRI thoracic spine today showed degenerative changes. Cervical spine no acute change. Some cervical spondylosis. Thoracic spine showed no acute abnormality. CT of the chest showed soft tissue pulmonary emphysema, osteopenia. CT spine showed degenerative changes. MRI of the brain showed no acute abnormality. ASSESSMENT AND PLAN: A 77-year-old lady with medical problems: 1) Hyponatremia likely secondary to increased ADH (antidiuretic hormone) with her abdominal issues and possible volume overload and hypovolemic, hyponatremia. Will order urine sodium osmolality. Her fluids have been stopped. I ordered a dose of Samsca. She might also need diuretics and continue to monitor sodium level closely. 2) Hypokalemia, replace potassium. 3) Leg weakness and back pain management per primary team. Unclear etiology. She may need transfer to a facility with inpatient neurology. 4) Hypertension. Avoid amlodipine because of edema and use alternative agents as needed. Will continue home medications. I recommend avoiding hydrochlorothiazide because of hyponatremia. Thank you for this consultation. Please do not hesitate to contact me if you have any questions.
[2022-08-25] MEDS: Adalat CC 30 MG TABLET PO SCH (10:40)
[2022-08-25] MEDS: ECOTRIN 81 MG PO SCH (10:40)
[2022-08-25] MEDS: Lopressor 25MG Tab PO SCH ×2 (10:40→21:01)
[2022-08-25] MEDS: Pepcid 20 MG PO SCH ×2 (10:41→21:01)
[2022-08-25] MEDS: SENOKOT 8.6 MG PO SCH ×2 (10:41→21:01)
[2022-08-25] MEDS: ATARAX 25 MG PO PRN ×2 (10:41→23:30)
[2022-08-25] MEDS ORDERED: PHARMACY DOSING REQUIRED: VANCOMYCIN IV STA (15:25)
[2022-08-25] MEDS: VANCOCIN 500 MG VIAL*** 500 MG in Sodium Chloride 100ML MINI-BAG PLUS 100 ML IV SCH (17:56)
[2022-08-25] MEDS: Lidoderm Patch 5% TOP SCH (17:56)
[2022-08-25] MEDS: PERCOCET TABLET 5/325MG PO PRN ×2 (18:07→22:31)
[2022-08-25] MEDS: ENOXAPARIN SODIUM SQ SCH (21:00)
[2022-08-25] MEDS ORDERED: NON-FORMULARY ITEM PO SCH (22:00)
[2022-08-26] MEDS: PERCOCET TABLET 5/325MG PO PRN ×4 (02:44→23:35)
[2022-08-26] MEDS: MERREM 500 MG in Sodium Chloride 100ML MINI-BAG PLUS 100 ML IV SCH ×3 (05:50→21:32)
[2022-08-26 06:28] LABS: Hematocrit 42.5 % (35-47); Hemoglobin 13.7 g/dL (12.0-16.0); Mean Corpuscular Hgb Concent. 32.2 g/dL (32-36); Mean Platelet Volume 9.7 fL (7.5-11.0); Platelet Count 384 x10^3/uL (150-450); Red Blood Count 4.72 x10^6/uL (4.1-5.4); Red Cell Distribution Width 15.7 % (11.5-14.0); White Blood Count 14.2 x10^3/uL (4.0-10.5)
[2022-08-26 06:32] LABS: ANION GAP 7.5 MEQ/L (5-15); BLOOD UREA NITROGEN 12 mg/dL (7-17); CHLORIDE 103 mmol/L (98-107); Calcium 8.3 mg/dL (8.4-10.2); Carbon Dioxide 26 mmol/L (22-30); Creatinine 1 0.33 mg/dL (0.52-1.04); EST GLOMERULAR FILTRATION RATE > 60.0 ML/MIN; Glucose 116 mg/dL (74-106); Potassium 3.5 mmol/L (3.5-5.1); SODIUM 133 mmol/L (137-145)
[2022-08-26] MEDS: VANCOCIN 500 MG VIAL*** 500 MG in Sodium Chloride 100ML MINI-BAG PLUS 100 ML IV SCH ×2 (07:54→18:56)
[2022-08-26] MEDS: TYLENOL 325 MG PO PRN (08:02)
[2022-08-26] MEDS: Adalat CC 30 MG TABLET PO SCH (08:37)
[2022-08-26] MEDS: Pepcid 20 MG PO SCH ×2 (08:37→21:31)
[2022-08-26] MEDS: ECOTRIN 81 MG PO SCH (08:37)
--- NOTE | 2022-08-26 08:42 | XRAY ---
Indication: Follow-up pneumonia. Comparison: August 22, 2022 Portable chest unchanged again slightly underinflated with subtle right base infiltrate/atelectasis/effusion and minimal left base subsegmental atelectasis/scarring. Remaining heart and upper lungs unremarkable. No new cardiopulmonary abnormalities.
[2022-08-26] MEDS ORDERED: Klor Con PO ONE (10:09)
[2022-08-26] MEDS: Lopressor 25MG Tab PO SCH ×2 (10:23→21:31)
[2022-08-26] MEDS: SENOKOT 8.6 MG PO SCH ×2 (10:24→21:31)
[2022-08-26] MEDS ORDERED: LASIX 20 MG PO ONE (11:00)
[2022-08-26] MEDS ORDERED: DICLOFENAC SODIUM TP PRN (16:30)
--- NOTE | 2022-08-26 19:31 | PCM.NOTE ---
Date and Time: 08/26/221916 Subjective Assessment: Patient continues to have BLE paralysis and LBP,pain worse when lying down. BUE weakness has improved with treatment of hyponatremia. Awaiting transtfer to higher level of care. Concern for Guillian Adams Run after work up including MRI brain,CT and MRI of cervical,thoracic and lumbar spine and phone consults with Teleneuro x 2, Neurosurgery(Dr Claude Patton),Neurology(Dr Nur Neurology [facility]) Spoke to RT and ordered Neg Inspiratory Force Test . Co2 monitoring via NC. Objective Exam General Appearance: no apparent distress (sitting up in lounge chair) Neurologic Exam: alert (states fighting to stay awake), oriented x 3, cooperative, normal mood/affect (pleasant ,happy to have family at bedside), motor deficits (BLE - not able to elicit DTR patella and achilles. BUE raises arms overhead strength=3/5,diminished DTR), sensory deficit, other (4 person assist to stand), No slurred speech, No dysarthria Skin Exam: normal color, warm, dry Ears, Nose, Throat Exam: normal ENT inspection Neck Exam: normal inspection Respiratory Exam: diminished breath sounds (bases), No crackles/rales, No rhonchi, No wheezing Cardiovascular Exam: regular rate/rhythm Gastrointestinal/Abdomen Exam: soft, No tenderness Extremity Exam: paralysis (BLE,DTR not alicited patella or achilles), pedal edema (mild), tenderness OBJECTIVE DATA Vital Signs: Vital Signs - 24 hr Temp Pulse Resp BP Pulse Ox 08/26/22 16:00 97.3 F 94 H 16 135/66 94 L 08/26/22 12:00 97.5 F 113 H 18 134/63 97 08/26/22 07:57 97.3 F 81 17 151/93 92 L 08/26/22 06:22 93 L 08/26/22 04:00 98.3 F 82 17 144/82 96 08/26/22 00:00 97.5 F 84 24 145/72 94 L 08/25/22 20:00 98.2 F 99 H 19 136/77 94 L Pain Assessment - Last Documented Pain Intensity [Lower back] 10 Pain Intensity 9 Pain Scale Used 0-10 Pain Scale Intake and Output: Intake & Output 08/24/22 08/25/22 08/26/2223 11:59 11:59 11:59 11:59 Intake Total 1713 905 540 180 Output Total 7400 3261 4659 Balance -1237 -1845 -1585 180 Weight 70.1 kg Lab Results: Lab Results-Last 24 Hours 08/24/22 08/24/22 08/26/22 Range/Units 14:05 Unknown 06:00 WBC 14.2 H (4.0-10.5) x10^3/uL RBC 4.72 (4.1-5.4) x10^6/uL Hgb 13.7 (12.0-16.0) g/dL Hct 42.5 (35-47) % MCV 90.0 (78-100) fL MCH 29.0 (26-32) pg MCHC 32.2 (32-36) g/dL RDW 15.7 H (11.5-14.0) % Plt Count 384 (150-450) x10^3/uL MPV 9.7 (7.5-11.0) fL Sodium (137-145) mmol/L Potassium (3.5-5.1) mmol/L Chloride (98-107) mmol/L Carbon Dioxide (22-30) mmol/L Anion Gap (5-15) MEQ/L BUN (7-17) mg/dL Creatinine (0.52-1.04) mg/dL Estimated GFR ML/MIN Glucose (74-106) mg/dL Serum Osmolality 260 L (280-301) mOsmol/kg Calcium (8.4-10.2) mg/dL Urine Osmolality 562 (.) mOsmol/kg Vancomycin Trough (10-20) ug/mL 08/26/22 08/26/22 Range/Units 06:00 06:00 WBC (4.0-10.5) x10^3/uL RBC (4.1-5.4) x10^6/uL Hgb (12.0-16.0) g/dL Hct (35-47) % MCV (78-100) fL MCH (26-32) pg MCHC (32-36) g/dL RDW (11.5-14.0) % Plt Count (150-450) x10^3/uL MPV (7.5-11.0) fL Sodium 133 L (137-145) mmol/L Potassium 3.5 (3.5-5.1) mmol/L Chloride 103 (98-107) mmol/L Carbon Dioxide 26 (22-30) mmol/L Anion Gap 7.5 (5-15) MEQ/L BUN 12 (7-17) mg/dL Creatinine 0.33 L (0.52-1.04) mg/dL Estimated GFR > 60.0 ML/MIN Glucose 116 H (74-106) mg/dL Serum Osmolality (280-301) mOsmol/kg Calcium 8.3 L (8.4-10.2) mg/dL Urine Osmolality (.) mOsmol/kg Vancomycin Trough < 5.00 L (10-20) ug/mL Radiology Exams: Radiology Procedures Category Date Time Status CHEST 1 VIEW (PORTABLE) Routine Exams 08/26/22 05:42 Completed Multi-Disciplinary Progress Notes: Multi-Disciplinary Progress Notes 08/26/22 16:00 Nutrition Note by Jazmine Carreon F/u Note: house regular diet with boost con't with poor po intake; 25-50% often refusing meals. Alternative choices to the menu offered. No recent weight since 08/23; Labs 08/26= Na 133, Cr 0.33, glu 116. goal of po intake >=25% not met consistently and ongoing; goal of no weight loss - unable to assess. Note pt to be transferred Monday for higher level of care. Will f/u prn. T.CUCA Carreon Initialized on 08/26/22 16:00 - END OF NOTE 08/26/22 14:12 Case Management Note by Brynn Hunter [facility] CALLED- THEY WILL NOT BE ABLE TO ACCEPT PATIENT OVER THE WEEKEND D/T STAFFING ISSUES. PATIENT WILL HAVE TO WAIT UNTIL MONDAY FOR ADMISSION IF READY FOR DC AT THAT TIME Initialized on 08/26/22 14:12 - END OF NOTE 08/26/22 13:05 Case Management Note by Brynn Hunter Addendum entered by Brynn Hunter 08/26/22 13:06: *S/W DAUGHTER ANTONI TYSON Original Note: PATIENT STILL ON WAITING ON BED AT HIGHER LEVEL OF CARE. OTHERWISE- FAMILY PLANS FOR PATIENT TO GO TO [facility] FOR REHAB AT TIME OF DC. BEATA BARBOSA STATED THEY WOULD BE READY FOR PATIENT OVER THE WEEKEND IF SHE WAS DCD Initialized on 08/26/22 13:05 - END OF NOTE Assessment/Plan (1) Pneumonia Current Visit: Yes Status: Acute Qualifiers: Pneumonia type: due to unspecified organism Laterality: right Lung location: lower lobe of lung Qualified Code(s): J18.9 - Pneumonia, unspecified organism Assessment & Plan: clinically improved Code(s): J18.9 - PNEUMONIA, UNSPECIFIED ORGANISM (2) Partial paralysis of both lower limbs Current Visit: Yes Status: Acute Assessment & Plan: not improving-awaiting transfer to higher level of care researching IVGG Code(s): G82.20 - PARAPLEGIA, UNSPECIFIED (3) Intractable back pain Current Visit: Yes Status: Acute Assessment & Plan: improved on current meds Code(s): M54.9 - DORSALGIA, UNSPECIFIED (4) Hyponatremia Current Visit: Yes Status: Acute Assessment & Plan: improved - see Nephrology consult Code(s): E87.1 - HYPO-OSMOLALITY AND HYPONATREMIA (5) HTN (hypertension) Current Visit: Yes Status: Chronic Qualifiers: Hypertension type: primary hypertension Qualified Code(s): I10 - Essential (primary) hypertension Code(s): I10 - ESSENTIAL (PRIMARY) HYPERTENSION (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 Code(s): G61.0 - GUILLAIN-BARRE SYNDROME
[2022-08-26] MEDS: Lidoderm Patch 5% TOP SCH (21:30)
[2022-08-26] MEDS: ENOXAPARIN SODIUM SQ SCH (21:31)
[2022-08-26] MEDS ORDERED: BENADRYL 25 MG CAPSULE PO SCH (22:00)
[2022-08-26] MEDS ORDERED: TYLENOL EXTRA STRENGTH 500 MG PO SCH (22:00)
[2022-08-26] MEDS: Sodium Chloride 0.9% 1000 ML 1,000 ML IV SCH ×2 (23:16→23:18)
[2022-08-27] MEDS: ATARAX 25 MG PO PRN (02:25)
[2022-08-27] MEDS: PERCOCET TABLET 5/325MG PO PRN (04:16)
[2022-08-27] MEDS ORDERED: TROUGH DRUG LEVELS IJ ONE (05:30)
[2022-08-27] MEDS: MERREM 500 MG in Sodium Chloride 100ML MINI-BAG PLUS 100 ML IV SCH ×3 (06:10→21:49)
[2022-08-27 06:42] LABS: ALBUMIN 3.1 g/dL (3.5-5.0); ALKALINE PHOSPHATASE 97 U/L (38-126); ANION GAP 7.5 MEQ/L (5-15); BLOOD UREA NITROGEN 14 mg/dL (7-17); CHLORIDE 100 mmol/L (98-107); Calcium 8.3 mg/dL (8.4-10.2); Carbon Dioxide 28 mmol/L (22-30); Creatinine 1 0.41 mg/dL (0.52-1.04); EST GLOMERULAR FILTRATION RATE > 60.0 ML/MIN; Glucose 115 mg/dL (74-106); Potassium 4.2 mmol/L (3.5-5.1); SGOT/AST 29 U/L (14-36); SGPT/ALT 30 U/L (0-35); SODIUM 132 mmol/L (137-145)
[2022-08-27] MEDS: VANCOCIN 500 MG VIAL*** 500 MG in Sodium Chloride 100ML MINI-BAG PLUS 100 ML IV SCH (07:49)
[2022-08-27] MEDS: ECOTRIN 81 MG PO SCH (10:07)
[2022-08-27] MEDS: Pepcid 20 MG PO SCH (10:07)
[2022-08-27] MEDS: SENOKOT 8.6 MG PO SCH (10:07)
[2022-08-27] MEDS: Lopressor 25MG Tab PO SCH (10:07)
[2022-08-27] MEDS: Adalat CC 30 MG TABLET PO SCH (10:07)
[2022-08-27] MEDS ORDERED: SUBLIMAZE 100 MCG/2 ML IV STA (13:29)
[2022-08-27] MEDS ORDERED: Sodium Chloride 0.9% 1000 ML 1,000 ML ONE (13:39)
[2022-08-27] MEDS ORDERED: Quelicin Fliptop 200 MG/10 ML IV ONE (13:45)
[2022-08-27] MEDS ORDERED: VERSED 5 MG/5 ML IV ONE (13:45)
[2022-08-27] MEDS ORDERED: Nimbex 20MG/10 Ml Vial (HIGH RISK MED) IV ONE (13:45)
[2022-08-27] MEDS ORDERED: NOREPINEPHRINE 8 MG/250 ML-D5W 8 MG/250 ML PLAST..BAG IV PRN (14:00)
[2022-08-27] MEDS: Sodium Chloride 0.9% 1000 ML 1,000 ML IV SCH (14:26)
[2022-08-27] MEDS: Nimbex 200MG/20 Ml MDV (HIGH RISK MED)** 200 MG in Dextrose 5%/Water IV Soln. 250 ML 18... IV PRN (14:30)
[2022-08-27] MEDS: Versed 50 MG/ 10 Ml MDV*** 50 MG in Sodium Chloride 0.9% 250 ML 240 ML IV PRN (14:50)
[2022-08-27 15:04] LABS: A-aADO2 302; ABG HEMOGLOBIN 12.9; ABG POTASSIUM 4.3 (3.5-5.1); ABG SITE RIGHT RADIAL; ARTERIAL BLD GAS TIDAL VOLUME 500 cc; ARTERIAL BLOOD GAS BASE EXCESS 6.5 (-2.0-2.0); ARTERIAL BLOOD GAS FIO2 100 %; ARTERIAL BLOOD GAS PCO2 34 mmHg (35-45); ARTERIAL BLOOD GAS PO2 369 mmHg (75-100); ARTERIAL BLOOD GAS VENT MODE A/C; ARTERIAL BLOOD GAS VENT RATE 16 /MIN; ARTERIAL BLOOD GAS pH 7.54 (7.35-7.45); HCO3- 29.1 (22-28); HGB O2 SAT 98.4 g/dF (94-100); Methhemoglobin 0.5 % (1.4-1.5); paO2 pAO1 0.55
[2022-08-27] MEDS: PERIDEX PO PRN (18:03)
--- NOTE | 2022-08-27 18:06 | XRAY ---
Indication: Endotracheal tube placement. Comparison: One day earlier Portable chest initially demonstrates new endotracheal tube tip 10 cm above liu with follow-up portable chest with tip 4 cm above liu. Also new NG tube traversing chest with tip in stomach. Remaining chest unchanged again with mild right base infiltrate/atelectasis/effusion and left base subsegmental atelectasis/scarring. Heart not enlarged. No new cardiopulmonary abnormalities Comment: Preliminary interpretation made by [facility]. No critical discrepancy.
[2022-08-27] MEDS: SODIUM CHLORIDE 0.9% IV SCH (18:24)
[2022-08-27] MEDS: VANCOCIN IV SCH (18:24)
[2022-08-27] MEDS ORDERED: Lubrifresh P.M. 3.5 gm Ointment ONE (20:43)
[2022-08-27] MEDS: Lubrifresh P.M. 3.5 gm Ointment OP SCH (20:43)
[2022-08-27] MEDS: ENOXAPARIN SODIUM SQ SCH (21:49)
[2022-08-27] MEDS: Lidoderm Patch 5% TOP SCH (21:50)
[2022-08-28] MEDS ORDERED: Sodium Chloride 3 ML UD NEBULES IH ONE (03:17)
[2022-08-28] MEDS: Sodium Chloride 0.9% 1000 ML 1,000 ML IV SCH (04:06)
[2022-08-28 04:49] LABS: A-aADO2 172; ABG POTASSIUM 3.5 (3.5-5.1); ARTERIAL BLD GAS O2 SATURATION 99.3 % (95-100); ARTERIAL BLD GAS TIDAL VOLUME 500 cc; ARTERIAL BLOOD GAS BASE EXCESS 2.9 (-2.0-2.0); ARTERIAL BLOOD GAS FIO2 50 %; ARTERIAL BLOOD GAS PCO2 30 mmHg (35-45); ARTERIAL BLOOD GAS PO2 147 mmHg (75-100); ARTERIAL BLOOD GAS VENT MODE A/C; ARTERIAL BLOOD GAS VENT RATE 14 /MIN; ARTERIAL BLOOD GAS pH 7.53 (7.35-7.45); CARBOXYHEMOGLOBIN 1.8 % THgb (0.0-6.9); HCO3- 25.1 (22-28); HGB O2 SAT 96.4 g/dF (94-100); Methhemoglobin 1.1 % (1.4-1.5); paO2 pAO1 0.46
[2022-08-28 04:50] LABS: ABG SITE RIGHT BRACHIAL
[2022-08-28 05:13] LABS: Hematocrit 35.4 % (35-47); Hemoglobin 11.5 g/dL (12.0-16.0); Mean Cell Volume 91.7 fL (78-100); Mean Corpuscular Hemoglobin 29.8 pg (26-32); Mean Corpuscular Hgb Concent. 32.5 g/dL (32-36); Mean Platelet Volume 9.6 fL (7.5-11.0); Platelet Count 327 x10^3/uL (150-450); Red Blood Count 3.86 x10^6/uL (4.1-5.4); Red Cell Distribution Width 15.9 % (11.5-14.0); White Blood Count 14.4 x10^3/uL (4.0-10.5)
[2022-08-28] MEDS: MERREM 500 MG in Sodium Chloride 100ML MINI-BAG PLUS 100 ML IV SCH ×2 (05:14→13:44)
[2022-08-28 05:31] LABS: ANION GAP 6.5 MEQ/L (5-15); BLOOD UREA NITROGEN 14 mg/dL (7-17); CHLORIDE 104 mmol/L (98-107); Calcium 7.8 mg/dL (8.4-10.2); Carbon Dioxide 24 mmol/L (22-30); Creatinine 1 0.34 mg/dL (0.52-1.04); EST GLOMERULAR FILTRATION RATE > 60.0 ML/MIN; Glucose 102 mg/dL (74-106); Potassium 3.5 mmol/L (3.5-5.1); SODIUM 131 mmol/L (137-145)
[2022-08-28] MEDS: Nimbex 200MG/20 Ml MDV (HIGH RISK MED)** 200 MG in Dextrose 5%/Water IV Soln. 250 ML 18... IV PRN (05:38)
[2022-08-28] MEDS: VANCOCIN IV SCH (06:03)
[2022-08-28] MEDS: SODIUM CHLORIDE 0.9% IV SCH (06:03)
[2022-08-28] MEDS: Versed 50 MG/ 10 Ml MDV*** 50 MG in Sodium Chloride 0.9% 250 ML 240 ML IV PRN ×2 (07:21→15:04)
[2022-08-28] MEDS: PERIDEX PO PRN (07:46)
[2022-08-28] MEDS: Lubrifresh P.M. 3.5 gm Ointment OP SCH (07:46)
[2022-08-28] MEDS ORDERED: FENTANYL 500 MCG/10 ML VIAL 1,500 MCG in Sodium Chloride 0.9% 150 ML 120 ML IV PRN (07:51)
--- NOTE | 2022-08-28 08:14 | XRAY ---
Indication: Patient on ventilator. Comparison: One day earlier Portable chest demonstrates minimal improving right base infiltrate/atelectasis/effusion which still persists. Stable left base subsegmental atelectasis/scarring. Heart not enlarged. No new cardiopulmonary abnormalities. Stable endotracheal tube and NG tube in situ. Comment: Preliminary interpretation made by [facility]. No critical discrepancy.
[2022-08-28] MEDS ORDERED: DEXTROSE 5%-NORMAL SALINE 500 ML 500 ML IV SCH (10:00)
[2022-08-28 10:06] VITALS: O2SAT 99
[2022-08-28] MEDS ORDERED: Dextrose 5%-NS IV Solution 1000 ML 1,000 ML IV SCH (10:30)
[2022-08-28 15:02] VITALS: PULSE 104
[2022-08-28 15:07] VITALS: BP 132/70
--- NOTE | 2022-09-12 20:41 | PCM.DS ---
Discharge Summary Date of Admission: 08/18/22 11:02 Date of Discharge: 08/28/2022 Admitting Physician: AUSTIN RITTER Consults: Consults on Case 08/18/22 10:59 Tele-Health Consult ROUTINE 08/19/22 14:06 Consult Neurology ROUTINE 08/24/22 11:14 Consult Nephrology ROUTINE 08/28/22 09:55 Consult Pulmonology ROUTINE Primary Care Provider: AUSTIN RITTER Allergies Allergies penicillin G Allergy (Severe, Verified 08/17/22 18:19) Anaphylactic Reaction Hospital Summary - Hospital Course Hospital Course: Pt. admitted to hospital for low back pain, that progressed with unilateral lower extremity paralysis and then unilateral upper and lower, followed by bilateral lower extremity, then proressed to have lower and upper extremity paralysis with problems taking a deep breath, pt. diagnosed with Guillain Barksdale, pt. was subsequently intubated and transferred to higher level of care, for immunoglobin therapy. - Vitals & Intake/Output Vital Signs: Vital Signs Temperature 98 F 08/28/22 15:00 Pulse Rate 104 H 08/28/22 15:00 Respiratory Rate 12 08/28/22 15:00 Blood Pressure 132/70 08/28/22 15:00 O2 Sat by Pulse Oximetry 99 08/28/22 15:00 - Lab Result Diagrams: 08/28/22 04:52 08/28/22 04:52 Micro Results-Entire Visit: Microbiology 08/23/22 20:35 Blood Culture Gram Stain - Final Blood Not Reportable Blood Culture - Final NO GROWTH 08/23/22 20:15 Blood Culture Gram Stain - Final Blood Not Reportable Blood Culture - Final NO GROWTH 08/19/22 08:00 Gram Stain - Final Cerebral Spinal Fluid CSF Culture - Final NO GROWTH - Procedures and Test Procedures and Tests throughout Hospitalization: Therapy Orders & Screens 08/17/22 21:30 Oxygen Nasal Cannula 2 lpm Comment: Diagnosis: Intractible back pain 08/17/22 23:33 PT Eval & Treat ( Order) ONCE Reason for Eval:: back pain, unsteady gait Diagnosis: Intractible back pain 08/27/22 14:38 Intubate Patient STAT Comment: Diagnosis: INABILITY TO AMBULATE D/T MULT JOINTS 08/27/22 14:39 Vent Settings [Ventilator Management] Q4H Comment: Diagnosis: INABILITY TO AMBULATE D/T MULT JOINTS 08/27/22 14:40 Oxygen High Flow per RT 50% Comment: Diagnosis: INABILITY TO AMBULATE D/T MULT JOINTS Discharge Exam General Appearance: no apparent distress, alert Neurologic Exam: alert, oriented x 3, cooperative, normal mood/affect, nml cerebellar function, sensation nml, No motor deficits Eye Exam: PERRL, EOMI, eyes nml inspection Ears, Nose, Throat Exam: normal ENT inspection, pharynx normal, moist mucous membranes Neck Exam: normal inspection, non-tender, supple, full range of motion Respiratory Exam: normal breath sounds, lungs clear, No respiratory distress Cardiovascular Exam: regular rate/rhythm, normal heart sounds Gastrointestinal/Abdomen Exam: soft, No tenderness, No mass Pelvic Exam: deferred Rectal Exam: deferred Back Exam: vertebral tenderness, No CVA tenderness Extremity Exam: parasthesia, paralysis Skin Exam: normal color, warm, dry Final Diagnosis/Problem List - Final Discharge Diagnosis/Problem (1) Guillain-Barksdale syndrome Status: Acute Code(s): G61.0 - GUILLAIN-BARRE SYNDROME - Discharge Discharge Date: 08/28/22 Disposition: XFER OTHER Condition: Fair Prescriptions: No Action Hydrocodone/Acetaminophen [Hydrocodone-Acetamin 5-325 mg] 1 tab PO Q4- 6HPRN PRN PRN Reason: Pain NIFEdipine [Nifedipine ER] 30 mg PO DAILY Metoprolol Tartrate 25 mg [Lopressor 25MG Tab] 25 mg PO BID Follow up with: AUSTIN RITTER MD [Primary Care Provider] -
== END 2022-08-28 15:45 | DRG 551 ==
LOC: ED 08:38 → MED SURG 18:05 → OBSVTOIN 08-18 11:02 → ICU 08-27 13:17
PROVIDERS: ADMIT Family Medicine; ATTEND Family Medicine
DX: M54.9 Dorsalgia, unspecified (principal); I63.9 Cerebral infarction, unspecified; J18.9 Pneumonia, unspecified organism; G82.20 Paraplegia, unspecified; E87.1 Hypo-osmolality and hyponatremia; G61.0 Guillain-Barre syndrome; R26.2 Difficulty in walking, not elsewhere classified; R29.898 Other symptoms and signs involving the musculoskeletal system; I10 Essential (primary) hypertension; E53.8 Deficiency of other specified B group vitamins; D72.829 Elevated white blood cell count, unspecified; Z79.899 Other long term (current) drug therapy; Z20.828 Contact with and (suspected) exposure to other viral communicable diseases; Z85.3 Personal history of malignant neoplasm of breast
CPT/HCPCS: 0241U; 31500; 36000; 36415; 36573; 36600; 51702; 62270; 70551; 71045; 72125; 72128; 72131; 72156; 72157; 72158; 74018; 80048; 80053; 80061; 80076; 80202; 81015; 82085; 82375; 82550; 82607; 82803; 82945; 82947; 83605; 83615; 83721; 83735; 83880; 83930; 83935; 84100; 84132; 84145; 84146; 84157; 84300; 84443; 85025; 85027; 85652; 86038; 86140; 87040; 87070; 89051; 93268; 94002; 94003; 94760; 94762; 96372; 96374; 96375; 96376; 97110; 97162; 97530; 99100; 99285; G0378; Q3014; J0330; J1650; J1885; J2060; J2250; J2270; J2930; J3010; J3370; J3420; J3480; A9270-GY